=== PATIENT | female | born 1935 | race Caucasian/White ===

== ENCOUNTER 2017-10-21 20:29 | Inpatient (IN) | payer MEDICARE, OTHER ==
[~2017-10-21] VITALS: Ht 170.2 cm; Wt 117.2 kg
[~2017-10-21 20:29] MED LIST: ALBU6.7H INH; ASPI-1071 PO; ATOR10TA PO; Amlodipine Besylate PO; DIO160T PO; DIPH-186 PO; DULO60CA45 PO; ESTR0.9T2 PO; FLUT16SP13 NS; HYDR-569 PO; LEVO5TAB13 PO; LEVO75TA7 PO; METH4TAB81 PO; NEBI20TA2 PO; NITR0.4T51 SL; PAT0.1OS EACHEYE; POTA8TAB3 PO; TICA90TA PO; ZOLP5TAB8 PO
[2017-10-21] MEDS ORDERED: levoFLOXACIN-Levaquin 750MG/D5 150 ML IV ONE (21:05)
[2017-10-21] MEDS ORDERED: normal saline 1000ML IV soln IV ONE (21:05)
[2017-10-21] MEDS ORDERED: vancomycin/NS 1 GM ADD-VANTAGE 250 ML IV ONE (21:05)
[2017-10-21] MEDS ORDERED: magnesium 2GM in 50ml NS 50 ML IV ONE (21:10)
[2017-10-21] MEDS ORDERED: methylPREDNISolone sod succ 125mg/2ml vial IV ONE (21:10)
[2017-10-21] MEDS ORDERED: ipratropium/albuterol 3ml nebule NEB ONE (21:30)
[2017-10-21 21:46] LABS: INR 1.1 INR; PARTIAL THROMBOPLASTIN TIME 30 SECONDS (22-32); PROTHROMBIN TIME 11.1 SECONDS (9.0-12.0)
[2017-10-21 21:52] LABS: ALANINE AMINOTRANSFERASE 24 U/L (12-78); ALBUMIN/GLOBULIN RATIO 0.6 (1.1-1.5); ALKALINE PHOSPHATASE 47 IU/L (46-116); ANION GAP 12 (8-16); ASPARTATE AMINO TRANSFERASE 23 U/L (10-37); BILIRUBIN,TOTAL 0.5 MG/DL (0.1-1.0); BLOOD UREA NITROGEN 51 MG/DL (7-18); BUN/CREATININE RATIO 17.5 (6.6-38.0); CALCIUM 9.6 MG/DL (8.5-10.1); CHLORIDE 100 MMOL/L (99-107); CREATININE 2.91 MG/DL (0.40-0.90); GLUCOSE 295 MG/DL (70-104); SODIUM 138 MMOL/L (135-145); eGFR 15 ML/MIN
[2017-10-21 21:55] LABS: ABG HCO3 23.6 mmol/L (22.0-26.0); ABG OXYGEN SATURATION 96.1 % (95-98); ABG PCO2 (T) 42.1 mmHg (32.0-45.0); ABG PH (T) 7.374 (7.350-7.450); ABG PO2 (T) 95.6 mmHg (83-108); FCOHb 0.4 % (0.5-1.5); FLOW 8 L/min; FMetHb 0.2 % (0.3-1.12); FO2Hb 95.5 % (94-100); PATIENT TEMPERATURE 38.5
[2017-10-21 21:59] LABS: MAGNESIUM 1.5 MG/DL (1.5-2.4)
[2017-10-21 22:02] LABS: BASOPHILS % (AUTO) 0.2 % (0-1); EOSINOPHILS % (AUTO) 0 % (0-6); HEMATOCRIT 35.4 % (35.0-45.0); HEMOGLOBIN 11.7 g/dl (12.0-16.0); LYMPHOCYTES # (AUTO) 1.7 X10'3 (1.1-4.8); LYMPHOCYTES % (AUTO) 8.7 % (21-51); MEAN CORPUSCULAR HEMOGLOBIN 30.2 PG (27.0-31.0); MEAN CORPUSCULAR VOLUME 91.6 FL (78-98); MEAN PLATELET VOLUME 8.6 FL (7.4-10.4); MONOCYTES # (AUTO) 0.5 X10'3 (0-0.9); MONOCYTES % (AUTO) 2.5 % (2-12); NEUTROPHILS # (AUTO) 17.1 X10'3 (1.8-7.7); NEUTROPHILS % (AUTO) 88.6 % (42-75); PLATELET COUNT 292 X10'3 (140-440); RED BLOOD COUNT 3.87 X10'6 (4.20-5.60); RED CELL DISTRIBUTION WIDTH 14.9 % (11.5-14.5); WHITE BLOOD COUNT 19.3 X10'3 (4.5-11.0)
[2017-10-21 23:01] LABS: NUCLEATED RED BLOOD CELLS 1 /100WBC (0-0); TOTAL CELLS COUNTED 100
[2017-10-21 23:03] LABS: PLATELET ESTIMATE NORMAL; TOXIC VACUOLATION FEW
[2017-10-22 00:14] LABS: CLARITY,URINE Cloudy (Clear); COLOR,URINE Yellow (Yellow); GLUCOSE, URINE Negative (Neg); KETONES,URINE Trace mg/dl (Neg); LEUKOCYTE ESTERASE ,URINE Trace (Neg); NITRITES, URINE Negative (Neg); OCCULT BLOOD,URINE Small (Neg); PROTEIN,URINE 300 mg/dl (Neg)
[2017-10-22 00:22] LABS: UA COLLECTION TYPE CLN CATCH MIDSTREAM
[2017-10-22 00:50] LABS: RBC,URINE NONE SEEN /HPF (0-2); WBC,URINE 0-4 /HPF (0-4)
[2017-10-22] MEDS ORDERED: normal saline 1000ML IV soln IVB ONE ×2 (00:50→00:55)
[2017-10-22 01:15] LABS: MUCUS STRANDS FEW /LPF (Neg); SQUAMOUS EPITHELIAL CELL,UR MODERATE /LPF (FEW)
[2017-10-22 01:16] LABS: AMORPHOUS URATES 2+; FINE GRANULAR CAST 0-3 /LPF (NEGATIVE)
[2017-10-22 01:17] LABS: BACTERIA,URINE FEW /HPF (Neg)
[2017-10-22] MEDS ORDERED: ondansetron/PF 4mg/2ml inj IV PRN (02:30)
[2017-10-22] MEDS ORDERED: acetaminophen 325mg tablet PO PRN ×2 (02:30)
[2017-10-22] MEDS ORDERED: ipratropium/albuterol 3ml nebule NEB PRN (03:10)
[2017-10-22] MEDS ORDERED: piperacillin/tazobactam inj. 2.25 GM in normal saline 50ml IV IV SCH (03:29)
[2017-10-22] MEDS: normal saline 1000ml 1,000 ML IV SCH ×2 (03:42→14:14)
[2017-10-22] MEDS: methylPREDNISolone sod succ 125mg/2ml vial IV SCH ×4 (03:43→19:20)
[2017-10-22] MEDS ORDERED: enoxaparin 30mg/0.3ml syringe SUBCUT SCH (08:00)
[2017-10-22 08:54] LABS: BASOPHILS % (AUTO) 0 % (0-1); EOSINOPHILS % (AUTO) 0 % (0-6); HEMATOCRIT 31.5 % (35.0-45.0); HEMOGLOBIN 10.5 g/dl (12.0-16.0); LYMPHOCYTES % (AUTO) 6.7 % (21-51); MEAN CORPUSCULAR HEMOGLOBIN 30.8 PG (27.0-31.0); MEAN CORPUSCULAR HGB CONC 33.3 % (33.0-36.5); MEAN CORPUSCULAR VOLUME 92.7 FL (78-98); MEAN PLATELET VOLUME 8.2 FL (7.4-10.4); MONOCYTES # (AUTO) 0.3 X10'3 (0-0.9); MONOCYTES % (AUTO) 2.2 % (2-12); NEUTROPHILS # (AUTO) 14.1 X10'3 (1.8-7.7); NEUTROPHILS % (AUTO) 91.1 % (42-75); PLATELET COUNT 247 X10'3 (140-440); RED BLOOD COUNT 3.39 X10'6 (4.20-5.60); RED CELL DISTRIBUTION WIDTH 14.9 % (11.5-14.5); WHITE BLOOD COUNT 15.5 X10'3 (4.5-11.0)
[2017-10-22 09:09] LABS: ALANINE AMINOTRANSFERASE 20 U/L (12-78); ALBUMIN 2.3 G/DL (3.4-5.0); ALBUMIN/GLOBULIN RATIO 0.5 (1.1-1.5); ALKALINE PHOSPHATASE 43 IU/L (46-116); ANION GAP 8 (8-16); ASPARTATE AMINO TRANSFERASE 36 U/L (10-37); BILIRUBIN,TOTAL 0.3 MG/DL (0.1-1.0); BLOOD UREA NITROGEN 48 MG/DL (7-18); BUN/CREATININE RATIO 22.2 (6.6-38.0); CALCIUM 8.4 MG/DL (8.5-10.1); CHLORIDE 105 MMOL/L (99-107); CREATININE 2.16 MG/DL (0.40-0.90); GLUCOSE 372 MG/DL (70-104); POTASSIUM 4.5 MMOL/L (3.5-5.1); SODIUM 137 MMOL/L (135-145); TOTAL CARBON DIOXIDE 24.4 MMOL/L (24-32); eGFR 22 ML/MIN
[2017-10-22 09:10] LABS: PLATELET ESTIMATE NORMAL; TOTAL CELLS COUNTED 100; TOXIC GRANULATION 1+
[2017-10-22] MEDS: piperacillin/tazo 3.375gm/50ml 50 ML IV SCH ×3 (09:53→19:21)
[2017-10-22] MEDS: enoxaparin 40mg/0.4ml syringe SUBCUT SCH (09:53)
[2017-10-22] MEDS ORDERED: MESSAGE TO PHARMACY PO ONE (10:55)
[2017-10-22] MEDS ORDERED: dextrose 50%-water 50ml dispensing syringe IV PRN ×2 (10:55)
[2017-10-22] MEDS ORDERED: albuterol 2.5 MG/3 ML nebule NEB PRN (10:55)
[2017-10-22] MEDS ORDERED: dextrose ORAL solution 15 GM/59 ML bottle PO PRN ×2 (10:55)
[2017-10-22] MEDS ORDERED: glucagon, human recombinant 1mg kit SUBCUT PRN (10:55)
[2017-10-22] MEDS: ipratropium/albuterol 3ml nebule NEB SCH ×4 (12:35→23:27)
[2017-10-22 13:40] VITALS: BP 151/78
[2017-10-22] MEDS: insulin Lispro (HumaLOG) vial - multi-dose SQ SCH ×3 (14:50→21:14)
[2017-10-22 15:00] VITALS: BP 135/68
[2017-10-22 19:00] VITALS: BP 131/72
[2017-10-22] MEDS: insulin glargine (Lantus) pen - multi-dose SQ SCH (21:15)
[2017-10-22 23:00] VITALS: BP 129/59
[2017-10-23] VITALS (15 sets, daily range): BP systolic 100–155; BP diastolic 60–88
[2017-10-23] MEDS: temazepam 15mg capsule PO PRN (00:56)
[2017-10-23] MEDS ORDERED: diltiazem 5mg/ml 5ml inj. IV ONE ×2 (01:10→02:30)
[2017-10-23] MEDS: piperacillin/tazo 3.375gm/50ml 50 ML IV SCH ×4 (01:22→19:10)
[2017-10-23] MEDS: methylPREDNISolone sod succ 125mg/2ml vial IV SCH ×4 (01:22→19:11)
[2017-10-23] MEDS ORDERED: VANCOMYCIN LEVEL IV SCH (03:00)
[2017-10-23] MEDS: ipratropium/albuterol 3ml nebule NEB SCH ×6 (03:28→22:06)
[2017-10-23] MEDS: diltiazem-D5W 125mg/125ml 125 ML IV SCH (04:08)
[2017-10-23] MEDS: normal saline 1000ml 1,000 ML IV SCH (05:06)
[2017-10-23 06:00] LABS: BASOPHILS % (AUTO) 0 % (0-1); EOSINOPHILS % (AUTO) 0 % (0-6); HEMATOCRIT 30.9 % (35.0-45.0); HEMOGLOBIN 10.3 g/dl (12.0-16.0); LYMPHOCYTES # (AUTO) 0.6 X10'3 (1.1-4.8); LYMPHOCYTES % (AUTO) 4.2 % (21-51); MEAN CORPUSCULAR HGB CONC 33.2 % (33.0-36.5); MEAN CORPUSCULAR VOLUME 93.4 FL (78-98); MEAN PLATELET VOLUME 8.6 FL (7.4-10.4); MONOCYTES # (AUTO) 0.8 X10'3 (0-0.9); MONOCYTES % (AUTO) 5.1 % (2-12); NEUTROPHILS # (AUTO) 13.9 X10'3 (1.8-7.7); NEUTROPHILS % (AUTO) 90.7 % (42-75); PLATELET COUNT 258 X10'3 (140-440); RED BLOOD COUNT 3.31 X10'6 (4.20-5.60); RED CELL DISTRIBUTION WIDTH 15.1 % (11.5-14.5); WHITE BLOOD COUNT 15.4 X10'3 (4.5-11.0)
[2017-10-23 06:17] LABS: ALBUMIN 2.4 G/DL (3.4-5.0); ANION GAP 12 (8-16); BLOOD UREA NITROGEN 50 MG/DL (7-18); BUN/CREATININE RATIO 26.6 (6.6-38.0); CALCIUM 8.5 MG/DL (8.5-10.1); CHLORIDE 107 MMOL/L (99-107); CREATININE 1.88 MG/DL (0.40-0.90); GLUCOSE 293 MG/DL (70-104); POTASSIUM 3.8 MMOL/L (3.5-5.1); SODIUM 142 MMOL/L (135-145); TOTAL CARBON DIOXIDE 23.4 MMOL/L (24-32); eGFR 26 ML/MIN
[2017-10-23] MEDS: enoxaparin 40mg/0.4ml syringe SUBCUT SCH (07:29)
[2017-10-23 09:18] LABS: TOTAL CELLS COUNTED 100
[2017-10-23 09:19] LABS: PLATELET ESTIMATE NORMAL; POLYCHROMASIA 1+; TOXIC GRANULATION 1+
[2017-10-23] MEDS: insulin Lispro (HumaLOG) vial - multi-dose SQ SCH ×4 (09:26→20:49)
[2017-10-23] MEDS ORDERED: nitroGLYCERIN 0.4mg SUBLingual tab SL PRN (10:35)
[2017-10-23] MEDS: furosemide 40mg/4ml inj IV SCH (11:25)
[2017-10-23] MEDS ORDERED: TIOT18CA3 (17:54)
[2017-10-23] MEDS ORDERED: VALS80TA26 PO (17:58)
[2017-10-23] MEDS ORDERED: DIPH1TAB PO (17:58)
[2017-10-23] MEDS ORDERED: PAT0.1OS OP (17:59)
[2017-10-23] MEDS ORDERED: METF500T PO (18:02)
[2017-10-23] MEDS ORDERED: ALBU18HF2 INH (18:03)
[2017-10-23] MEDS ORDERED: BUDE90AE IH (18:04)
[2017-10-23] MEDS ORDERED: pneumococcal 23-VAL P-sac vacc 25 mcg/0.5ml vial IMVAC ONE (18:05)
[2017-10-23] MEDS ORDERED: FURO40TA4 PO (18:05)
[2017-10-23] MEDS ORDERED: PREG50CA PO (18:08)
[2017-10-23] MEDS ORDERED: QUET25TA PO (18:09)
[2017-10-23] MEDS: guaiFENesin ER 600mg tablet PO SCH (19:11)
[2017-10-23] MEDS: ticagrelor 90mg tablet PO SCH (19:11)
[2017-10-23] MEDS: insulin glargine (Lantus) pen - multi-dose SQ SCH (20:51)
[2017-10-23] MEDS ORDERED: zolpidem 5mg tablet PO SCH (21:00)
[2017-10-23] MEDS ORDERED: albuterol 2.5 MG/3 ML nebule NEB PRN (22:50)
[2017-10-24] VITALS (9 sets, daily range): BP systolic 107–156; BP diastolic 36–87
[2017-10-24] MEDS: methylPREDNISolone sod succ 125mg/2ml vial IV SCH ×4 (02:22→19:08)
[2017-10-24] MEDS: piperacillin/tazo 3.375gm/50ml 50 ML IV SCH ×4 (02:22→20:39)
[2017-10-24] MEDS: diltiazem-D5W 125mg/125ml 125 ML IV SCH (02:34)
[2017-10-24] MEDS: ipratropium/albuterol 3ml nebule NEB SCH ×5 (02:36→19:05)
[2017-10-24 05:58] LABS: BASOPHILS % (AUTO) 0.1 % (0-1); EOSINOPHILS % (AUTO) 0 % (0-6); HEMATOCRIT 31.2 % (35.0-45.0); HEMOGLOBIN 10.3 g/dl (12.0-16.0); LYMPHOCYTES # (AUTO) 0.8 X10'3 (1.1-4.8); LYMPHOCYTES % (AUTO) 4.8 % (21-51); MEAN CORPUSCULAR HEMOGLOBIN 30.5 PG (27.0-31.0); MEAN CORPUSCULAR VOLUME 92.5 FL (78-98); MEAN PLATELET VOLUME 8.6 FL (7.4-10.4); MONOCYTES # (AUTO) 0.6 X10'3 (0-0.9); MONOCYTES % (AUTO) 3.6 % (2-12); NEUTROPHILS # (AUTO) 14.5 X10'3 (1.8-7.7); NEUTROPHILS % (AUTO) 91.5 % (42-75); PLATELET COUNT 302 X10'3 (140-440); RED BLOOD COUNT 3.37 X10'6 (4.20-5.60); RED CELL DISTRIBUTION WIDTH 15.1 % (11.5-14.5); WHITE BLOOD COUNT 15.8 X10'3 (4.5-11.0)
[2017-10-24 06:21] LABS: ALBUMIN 2.5 G/DL (3.4-5.0); ANION GAP 11 (8-16); BLOOD UREA NITROGEN 59 MG/DL (7-18); BUN/CREATININE RATIO 29.2 (6.6-38.0); CALCIUM 8.3 MG/DL (8.5-10.1); CHLORIDE 106 MMOL/L (99-107); CREATININE 2.02 MG/DL (0.40-0.90); GLUCOSE 271 MG/DL (70-104); POTASSIUM 3.6 MMOL/L (3.5-5.1); SODIUM 139 MMOL/L (135-145); TOTAL CARBON DIOXIDE 22.5 MMOL/L (24-32); VANCOMYCIN,RANDOM 3.3 UG/ML; eGFR 24 ML/MIN
[2017-10-24 07:36] LABS: BANDS% (MANUAL) 4 % (0-10); LYMPHOCYTES % (MANUAL) 2 % (21-51); METAMYLEOCYTES% (MANUAL) 4 % (0-0); MONOCYTES % (MANUAL) 1 % (2-12); MYELOCYTES % (MANUAL) 3 % (0-0); NEUTROPHILS % (MANUAL) 85 % (42-75); PLATELET ESTIMATE NORMAL; PROMYELOCYTES % (MANUAL) 1 % (0-0); TOTAL CELLS COUNTED 100
[2017-10-24] MEDS: duloxetine 30mg CAPSULE.DR PO SCH (08:08)
[2017-10-24] MEDS: ticagrelor 90mg tablet PO SCH ×2 (08:09→19:08)
[2017-10-24] MEDS: estrogens, conjugated 0.3mg tablet PO SCH (08:09)
[2017-10-24] MEDS: guaiFENesin ER 600mg tablet PO SCH ×2 (08:09→19:08)
[2017-10-24] MEDS: LACTOBACILLUS RHAMNOSUS GG 15 billion unit sprinkle caps PO SCH (08:11)
[2017-10-24] MEDS: levoTHYROXINE 75mcg tablet PO SCH (08:11)
[2017-10-24] MEDS: aspirin 81mg tablet.DR PO SCH (08:11)
[2017-10-24] MEDS: enoxaparin 40mg/0.4ml syringe SUBCUT SCH (08:13)
[2017-10-24] MEDS: furosemide 40mg/4ml inj IV SCH (08:16)
[2017-10-24] MEDS: cetirizine 10mg tablet PO SCH (08:16)
[2017-10-24] MEDS: insulin Lispro (HumaLOG) vial - multi-dose SQ SCH ×4 (08:31→21:20)
[2017-10-24] MEDS ORDERED: levoFLOXACIN-Levaquin 500mg/D5 100 ML IV SCH (08:35)
[2017-10-24] MEDS: insulin glargine (Lantus) pen - multi-dose SQ SCH (21:21)
[2017-10-24] MEDS: temazepam 15mg capsule PO PRN (21:38)
[2017-10-25] VITALS (11 sets, daily range): BP systolic 106–146; BP diastolic 59–81
[2017-10-25] MEDS: ipratropium/albuterol 3ml nebule NEB SCH ×6 (00:02→20:14)
[2017-10-25] MEDS: methylPREDNISolone sod succ 125mg/2ml vial IV SCH ×4 (02:27→20:23)
[2017-10-25] MEDS: piperacillin/tazo 3.375gm/50ml 50 ML IV SCH ×4 (03:00→20:23)
[2017-10-25] MEDS ORDERED: mag hydrox/Alum hydrox/simeth 30ml oral suspension PO ONE (03:05)
[2017-10-25] MEDS: diltiazem-D5W 125mg/125ml 125 ML IV SCH (05:07)
[2017-10-25 06:12] LABS: BASOPHILS % (AUTO) 0 % (0-1); EOSINOPHILS % (AUTO) 0 % (0-6); HEMATOCRIT 30.3 % (35.0-45.0); HEMOGLOBIN 9.9 g/dl (12.0-16.0); LYMPHOCYTES # (AUTO) 0.7 X10'3 (1.1-4.8); LYMPHOCYTES % (AUTO) 5.7 % (21-51); MEAN CORPUSCULAR HEMOGLOBIN 29.9 PG (27.0-31.0); MEAN CORPUSCULAR HGB CONC 32.5 % (33.0-36.5); MEAN CORPUSCULAR VOLUME 91.9 FL (78-98); MEAN PLATELET VOLUME 8.4 FL (7.4-10.4); MONOCYTES # (AUTO) 0.5 X10'3 (0-0.9); MONOCYTES % (AUTO) 4.4 % (2-12); NEUTROPHILS # (AUTO) 10.4 X10'3 (1.8-7.7); NEUTROPHILS % (AUTO) 89.9 % (42-75); PLATELET COUNT 266 X10'3 (140-440); RED CELL DISTRIBUTION WIDTH 15.1 % (11.5-14.5); WHITE BLOOD COUNT 11.6 X10'3 (4.5-11.0)
[2017-10-25 06:32] LABS: ALBUMIN 2.4 G/DL (3.4-5.0); ANION GAP 12 (8-16); BLOOD UREA NITROGEN 63 MG/DL (7-18); BUN/CREATININE RATIO 33.2 (6.6-38.0); CHLORIDE 104 MMOL/L (99-107); GLUCOSE 330 MG/DL (70-104); POTASSIUM 3.6 MMOL/L (3.5-5.1); SODIUM 139 MMOL/L (135-145); TOTAL CARBON DIOXIDE 23.1 MMOL/L (24-32); VANCOMYCIN,RANDOM 2.3 UG/ML; eGFR 25 ML/MIN
[2017-10-25 07:14] LABS: LYMPHOCYTES % (MANUAL) 2 % (21-51); METAMYLEOCYTES% (MANUAL) 4 % (0-0); MONOCYTES % (MANUAL) 4 % (2-12); MYELOCYTES % (MANUAL) 2 % (0-0); NEUTROPHILS % (MANUAL) 88 % (42-75); PLATELET ESTIMATE NORMAL; TOTAL CELLS COUNTED 100
[2017-10-25 07:16] LABS: TOXIC GRANULATION 1+
[2017-10-25] MEDS: enoxaparin 30mg/0.3ml syringe SUBCUT SCH (08:00)
[2017-10-25] MEDS: furosemide 40mg/4ml inj IV SCH (08:21)
[2017-10-25] MEDS: LACTOBACILLUS RHAMNOSUS GG 15 billion unit sprinkle caps PO SCH (08:21)
[2017-10-25] MEDS: levoFLOXACIN-Levaquin 750MG/D5 150 ML IV SCH (08:22)
[2017-10-25] MEDS: ticagrelor 90mg tablet PO SCH ×2 (08:24→20:23)
[2017-10-25] MEDS: duloxetine 30mg CAPSULE.DR PO SCH (08:31)
[2017-10-25] MEDS: estrogens, conjugated 0.3mg tablet PO SCH (08:32)
[2017-10-25] MEDS: guaiFENesin ER 600mg tablet PO SCH ×2 (08:32→20:23)
[2017-10-25] MEDS: aspirin 81mg tablet.DR PO SCH (08:32)
[2017-10-25] MEDS: levoTHYROXINE 75mcg tablet PO SCH (08:32)
[2017-10-25] MEDS: cetirizine 10mg tablet PO SCH (08:37)
[2017-10-25] MEDS: insulin Lispro (HumaLOG) vial - multi-dose SQ SCH ×4 (08:42→20:38)
[2017-10-25] MEDS: mag hydrox/Alum hydrox/simeth 30ml oral suspension PO PRN ×2 (10:01→21:32)
[2017-10-25] MEDS ORDERED: diltiazem 30mg tablet PO ONE (14:40)
[2017-10-25] MEDS ORDERED: furosemide 40mg/4ml inj IV SCH (15:00)
[2017-10-25] MEDS: diltiazem 30mg tablet PO SCH (20:24)
[2017-10-25] MEDS: insulin glargine (Lantus) pen - multi-dose SQ SCH (20:37)
[2017-10-25] MEDS: temazepam 15mg capsule PO PRN (22:04)
[2017-10-26] MEDS: ipratropium/albuterol 3ml nebule NEB SCH ×7 (00:07→23:36)
[2017-10-26] MEDS: methylPREDNISolone sod succ 125mg/2ml vial IV SCH ×2 (01:57→08:09)
[2017-10-26] MEDS: diltiazem 30mg tablet PO SCH ×4 (01:57→20:59)
[2017-10-26] MEDS: piperacillin/tazo 3.375gm/50ml 50 ML IV SCH ×4 (01:57→20:58)
[2017-10-26 03:00] VITALS: BP 90/46
[2017-10-26] MEDS: mag hydrox/Alum hydrox/simeth 30ml oral suspension PO PRN ×2 (05:05→22:24)
[2017-10-26 05:32] LABS: BASOPHILS % (AUTO) 0.1 % (0-1); EOSINOPHILS % (AUTO) 0 % (0-6); HEMATOCRIT 29.2 % (35.0-45.0); HEMOGLOBIN 9.6 g/dl (12.0-16.0); LYMPHOCYTES # (AUTO) 0.7 X10'3 (1.1-4.8); MEAN CORPUSCULAR HGB CONC 32.9 % (33.0-36.5); MEAN CORPUSCULAR VOLUME 91.3 FL (78-98); MEAN PLATELET VOLUME 8.3 FL (7.4-10.4); MONOCYTES # (AUTO) 0.4 X10'3 (0-0.9); MONOCYTES % (AUTO) 3.8 % (2-12); NEUTROPHILS # (AUTO) 10.7 X10'3 (1.8-7.7); NEUTROPHILS % (AUTO) 90.1 % (42-75); PLATELET COUNT 257 X10'3 (140-440); RED CELL DISTRIBUTION WIDTH 15.6 % (11.5-14.5); WHITE BLOOD COUNT 11.9 X10'3 (4.5-11.0)
[2017-10-26 05:36] LABS: ALBUMIN 2.3 G/DL (3.4-5.0); ANION GAP 12 (8-16); BLOOD UREA NITROGEN 66 MG/DL (7-18); BUN/CREATININE RATIO 31.4 (6.6-38.0); CALCIUM 7.6 MG/DL (8.5-10.1); CHLORIDE 101 MMOL/L (99-107); GLUCOSE 320 MG/DL (70-104); POTASSIUM 3.9 MMOL/L (3.5-5.1); SODIUM 139 MMOL/L (135-145); TOTAL CARBON DIOXIDE 25.6 MMOL/L (24-32); VANCOMYCIN,RANDOM 1.9 UG/ML; eGFR 23 ML/MIN
[2017-10-26 06:00] VITALS: BP 136/63
[2017-10-26] MEDS ORDERED: calcium carbonate 500mg chew tablet PO PRN (06:35)
[2017-10-26] MEDS: LACTOBACILLUS RHAMNOSUS GG 15 billion unit sprinkle caps PO SCH (08:08)
[2017-10-26] MEDS: ticagrelor 90mg tablet PO SCH ×2 (08:09→20:58)
[2017-10-26] MEDS: cetirizine 10mg tablet PO SCH (08:12)
[2017-10-26] MEDS: enoxaparin 30mg/0.3ml syringe SUBCUT SCH (08:16)
[2017-10-26] MEDS: estrogens, conjugated 0.3mg tablet PO SCH (08:17)
[2017-10-26] MEDS: levoTHYROXINE 75mcg tablet PO SCH (08:17)
[2017-10-26] MEDS: aspirin 81mg tablet.DR PO SCH (08:17)
[2017-10-26] MEDS: duloxetine 30mg CAPSULE.DR PO SCH (08:17)
[2017-10-26] MEDS: guaiFENesin ER 600mg tablet PO SCH ×2 (08:17→20:59)
[2017-10-26] MEDS: furosemide 40mg/4ml inj IV SCH ×2 (08:20→15:14)
[2017-10-26] MEDS: insulin Lispro (HumaLOG) vial - multi-dose SQ SCH ×4 (08:23→21:39)
[2017-10-26 09:09] LABS: NUCLEATED RED BLOOD CELLS 2 /100WBC (0-0); TOTAL CELLS COUNTED 100
[2017-10-26 09:10] LABS: PLATELET ESTIMATE NORMAL; TOXIC GRANULATION 2+
[2017-10-26 09:11] LABS: HYPOCHROMASIA 1+; SCHISTOCYTES FEW
[2017-10-26] MEDS: pantoprazole 40mg Tablet.DR PO SCH (10:29)
[2017-10-26 11:00] VITALS: BP 155/76
[2017-10-26] MEDS: predniSONE 20 mg tablet PO SCH (12:54)
[2017-10-26 15:00] VITALS: BP 135/56
[2017-10-26 19:00] VITALS: BP_SYST 111; BP_SYST 133; BP_DIAS 61; BP_DIAS 64
[2017-10-26] MEDS: insulin glargine (Lantus) pen - multi-dose SQ SCH (21:11)
[2017-10-26] MEDS ORDERED: HYDROcodone/acetaminophen 5mg/325mg tablet PO PRN (22:15)
[2017-10-26] MEDS: temazepam 15mg capsule PO PRN (22:24)
[2017-10-26 23:00] VITALS: BP_SYST 102; BP_SYST 119; BP_DIAS 53; BP_DIAS 80
[2017-10-27] VITALS (7 sets, daily range): BP systolic 94–137; BP diastolic 48–69
[2017-10-27] MEDS: diltiazem 30mg tablet PO SCH ×4 (02:13→20:00)
[2017-10-27] MEDS: piperacillin/tazo 3.375gm/50ml 50 ML IV SCH ×4 (02:14→19:59)
[2017-10-27] MEDS: ipratropium/albuterol 3ml nebule NEB SCH ×6 (03:52→23:49)
[2017-10-27 06:45] LABS: ALBUMIN 2.4 G/DL (3.4-5.0); ANION GAP 11 (8-16); BLOOD UREA NITROGEN 75 MG/DL (7-18); BUN/CREATININE RATIO 32.6 (6.6-38.0); CALCIUM 7.3 MG/DL (8.5-10.1); CHLORIDE 100 MMOL/L (99-107); GLUCOSE 298 MG/DL (70-104); POTASSIUM 3.9 MMOL/L (3.5-5.1); SODIUM 139 MMOL/L (135-145); TOTAL CARBON DIOXIDE 27.6 MMOL/L (24-32); VANCOMYCIN,RANDOM 1.2 UG/ML; eGFR 20 ML/MIN
[2017-10-27 06:58] LABS: BASOPHILS # (AUTO) 0.1 X10'3 (0-0.2); BASOPHILS % (AUTO) 0.5 % (0-1); EOSINOPHILS % (AUTO) 0 % (0-6); HEMATOCRIT 28.5 % (35.0-45.0); HEMOGLOBIN 9.9 g/dl (12.0-16.0); LYMPHOCYTES # (AUTO) 0.9 X10'3 (1.1-4.8); LYMPHOCYTES % (AUTO) 5.9 % (21-51); MEAN CORPUSCULAR HEMOGLOBIN 31.4 PG (27.0-31.0); MEAN CORPUSCULAR HGB CONC 34.9 % (33.0-36.5); MEAN PLATELET VOLUME 8.5 FL (7.4-10.4); MONOCYTES % (AUTO) 7.2 % (2-12); NEUTROPHILS # (AUTO) 12.4 X10'3 (1.8-7.7); NEUTROPHILS % (AUTO) 86.4 % (42-75); PLATELET COUNT 268 X10'3 (140-440); RED BLOOD COUNT 3.16 X10'6 (4.20-5.60); RED CELL DISTRIBUTION WIDTH 14.2 % (11.5-14.5); WHITE BLOOD COUNT 14.4 X10'3 (4.5-11.0)
[2017-10-27 07:40] LABS: TOTAL CELLS COUNTED 100
[2017-10-27 07:41] LABS: PLATELET ESTIMATE NORMAL; POLYCHROMASIA FEW; TARGET CELLS FEW; TOXIC GRANULATION 2+
[2017-10-27] MEDS: predniSONE 20 mg tablet PO SCH (08:06)
[2017-10-27] MEDS: guaiFENesin ER 600mg tablet PO SCH ×2 (08:06→19:59)
[2017-10-27] MEDS: estrogens, conjugated 0.3mg tablet PO SCH (08:06)
[2017-10-27] MEDS: pantoprazole 40mg Tablet.DR PO SCH (08:07)
[2017-10-27] MEDS: levoTHYROXINE 75mcg tablet PO SCH (08:07)
[2017-10-27] MEDS: LACTOBACILLUS RHAMNOSUS GG 15 billion unit sprinkle caps PO SCH (08:07)
[2017-10-27] MEDS: ticagrelor 90mg tablet PO SCH ×2 (08:07→19:59)
[2017-10-27] MEDS: cetirizine 10mg tablet PO SCH (08:07)
[2017-10-27] MEDS: duloxetine 30mg CAPSULE.DR PO SCH (08:07)
[2017-10-27] MEDS: aspirin 81mg tablet.DR PO SCH (08:08)
[2017-10-27] MEDS: enoxaparin 30mg/0.3ml syringe SUBCUT SCH (08:09)
[2017-10-27] MEDS: levoFLOXACIN-Levaquin 750MG/D5 150 ML IV SCH (08:13)
[2017-10-27] MEDS: insulin Lispro (HumaLOG) vial - multi-dose SQ SCH ×3 (08:27→19:06)
[2017-10-27] MEDS: furosemide 40mg/4ml inj IV SCH (10:05)
[2017-10-27] MEDS ORDERED: furosemide 40mg/4ml inj IV SCH (15:00)
[2017-10-27] MEDS: insulin glargine (Lantus) pen - multi-dose SQ SCH (21:02)
[2017-10-27] MEDS: temazepam 15mg capsule PO PRN (21:17)
[2017-10-28] VITALS (7 sets, daily range): BP systolic 101–127; BP diastolic 40–71
[2017-10-28] MEDS: piperacillin/tazo 3.375gm/50ml 50 ML IV SCH ×4 (01:45→19:58)
[2017-10-28] MEDS: diltiazem 30mg tablet PO SCH ×4 (01:55→19:58)
[2017-10-28] MEDS: ipratropium/albuterol 3ml nebule NEB SCH ×5 (03:38→23:39)
[2017-10-28] MEDS: mag hydrox/Alum hydrox/simeth 30ml oral suspension PO PRN (03:44)
[2017-10-28] MEDS: predniSONE 20 mg tablet PO SCH (08:03)
[2017-10-28] MEDS: estrogens, conjugated 0.3mg tablet PO SCH (08:03)
[2017-10-28] MEDS: duloxetine 30mg CAPSULE.DR PO SCH (08:03)
[2017-10-28] MEDS: LACTOBACILLUS RHAMNOSUS GG 15 billion unit sprinkle caps PO SCH (08:03)
[2017-10-28] MEDS: guaiFENesin ER 600mg tablet PO SCH ×2 (08:03→19:58)
[2017-10-28] MEDS: pantoprazole 40mg Tablet.DR PO SCH (08:03)
[2017-10-28] MEDS: aspirin 81mg tablet.DR PO SCH (08:04)
[2017-10-28] MEDS: ticagrelor 90mg tablet PO SCH ×2 (08:04→19:57)
[2017-10-28] MEDS: levoTHYROXINE 75mcg tablet PO SCH (08:04)
[2017-10-28] MEDS: furosemide 40mg/4ml inj IV SCH (08:08)
[2017-10-28] MEDS: enoxaparin 30mg/0.3ml syringe SUBCUT SCH (08:08)
[2017-10-28] MEDS: insulin Lispro (HumaLOG) vial - multi-dose SQ SCH ×4 (08:22→21:31)
[2017-10-28] MEDS: cetirizine 10mg tablet PO SCH (08:24)
[2017-10-28 10:41] LABS: HEMOGLOBIN 10.9 g/dl (12.0-16.0); MEAN CORPUSCULAR HEMOGLOBIN 30.3 PG (27.0-31.0); MEAN CORPUSCULAR VOLUME 91.9 FL (78-98); MEAN PLATELET VOLUME 7.7 FL (7.4-10.4); PLATELET COUNT 309 X10'3 (140-440); RED BLOOD COUNT 3.59 X10'6 (4.20-5.60); RED CELL DISTRIBUTION WIDTH 15.1 % (11.5-14.5); WHITE BLOOD COUNT 18.2 X10'3 (4.5-11.0)
[2017-10-28 10:54] LABS: NUCLEATED RED BLOOD CELLS 1 /100WBC (0-0); TOTAL CELLS COUNTED 100
[2017-10-28 10:56] LABS: ANISOCYTOSIS 1+; HYPOCHROMASIA 1+; PLATELET ESTIMATE NORMAL; POLYCHROMASIA 1+; TOXIC GRANULATION 2+; TOXIC VACUOLATION 1+
[2017-10-28] MEDS ORDERED: levoFLOXACIN 750MG TABLET PO SCH (11:00)
[2017-10-28 11:01] LABS: ALANINE AMINOTRANSFERASE 55 U/L (12-78); ALBUMIN 2.3 G/DL (3.4-5.0); ALBUMIN/GLOBULIN RATIO 0.6 (1.1-1.5); ALKALINE PHOSPHATASE 33 IU/L (46-116); ANION GAP 12 (8-16); ASPARTATE AMINO TRANSFERASE 45 U/L (10-37); BILIRUBIN,TOTAL 0.5 MG/DL (0.1-1.0); BLOOD UREA NITROGEN 74 MG/DL (7-18); BUN/CREATININE RATIO 29.6 (6.6-38.0); CALCIUM 7.1 MG/DL (8.5-10.1); CHLORIDE 100 MMOL/L (99-107); GLUCOSE 198 MG/DL (70-104); POTASSIUM 3.6 MMOL/L (3.5-5.1); SODIUM 139 MMOL/L (135-145); TOTAL CARBON DIOXIDE 27.5 MMOL/L (24-32); TOTAL PROTEIN 6.2 G/DL (6.4-8.2); eGFR 18 ML/MIN
[2017-10-28] MEDS ORDERED: magnesium hydroxide 30ml (MOM) UD suspension PO PRN (14:50)
[2017-10-28] MEDS: docusate sod 100mg capsule PO SCH (15:18)
[2017-10-28] MEDS: NUT.TX.GLUC.INTOLER,LAC-FR,REG (BOOST GLUCOSE CONTROL) 237 ML PO SCH (18:36)
[2017-10-28] MEDS: temazepam 15mg capsule PO PRN (21:33)
[2017-10-28] MEDS: insulin glargine (Lantus) pen - multi-dose SQ SCH (21:33)
[2017-10-29] MEDS: piperacillin/tazo 3.375gm/50ml 50 ML IV SCH ×2 (02:23→11:09)
[2017-10-29] MEDS: diltiazem 30mg tablet PO SCH ×2 (02:23→07:43)
[2017-10-29] MEDS ORDERED: VANCOMYCIN LEVEL IV SCH (03:00)
[2017-10-29 03:06] VITALS: BP 133/62
[2017-10-29] MEDS: ipratropium/albuterol 3ml nebule NEB SCH ×4 (03:59→14:55)
[2017-10-29 06:00] VITALS: BP 118/55
[2017-10-29 06:23] LABS: ALBUMIN 2.2 G/DL (3.4-5.0); ANION GAP 6 (8-16); BLOOD UREA NITROGEN 69 MG/DL (7-18); CHLORIDE 103 MMOL/L (99-107); GLUCOSE 94 MG/DL (70-104); POTASSIUM 3.8 MMOL/L (3.5-5.1); SODIUM 140 MMOL/L (135-145); VANCOMYCIN,RANDOM 15.6 UG/ML; eGFR 20 ML/MIN
[2017-10-29] MEDS: estrogens, conjugated 0.3mg tablet PO SCH (07:36)
[2017-10-29] MEDS: ticagrelor 90mg tablet PO SCH (07:37)
[2017-10-29] MEDS: predniSONE 20 mg tablet PO SCH (07:37)
[2017-10-29] MEDS: levoTHYROXINE 75mcg tablet PO SCH (07:38)
[2017-10-29] MEDS: guaiFENesin ER 600mg tablet PO SCH (07:39)
[2017-10-29] MEDS: LACTOBACILLUS RHAMNOSUS GG 15 billion unit sprinkle caps PO SCH (07:40)
[2017-10-29] MEDS: aspirin 81mg tablet.DR PO SCH (07:41)
[2017-10-29] MEDS: docusate sod 100mg capsule PO SCH (07:41)
[2017-10-29] MEDS: pantoprazole 40mg Tablet.DR PO SCH (07:42)
[2017-10-29] MEDS: duloxetine 30mg CAPSULE.DR PO SCH (07:44)
[2017-10-29] MEDS: enoxaparin 30mg/0.3ml syringe SUBCUT SCH (07:44)
[2017-10-29] MEDS: cetirizine 10mg tablet PO SCH (07:45)
[2017-10-29] MEDS: NUT.TX.GLUC.INTOLER,LAC-FR,REG (BOOST GLUCOSE CONTROL) 237 ML PO SCH (08:00)
[2017-10-29] MEDS ORDERED: levoFLOXACIN-Levaquin 250mg/D5 50 ML IV SCH (08:00)
[2017-10-29 10:34] LABS: BASOPHILS # (AUTO) 0.1 X10'3 (0-0.2); BASOPHILS % (AUTO) 0.6 % (0-1); EOSINOPHILS % (AUTO) 0.1 % (0-6); HEMATOCRIT 31.5 % (35.0-45.0); HEMOGLOBIN 10.2 g/dl (12.0-16.0); LYMPHOCYTES # (AUTO) 1.6 X10'3 (1.1-4.8); LYMPHOCYTES % (AUTO) 8.7 % (21-51); MEAN CORPUSCULAR HEMOGLOBIN 30.2 PG (27.0-31.0); MEAN CORPUSCULAR HGB CONC 32.4 % (33.0-36.5); MEAN CORPUSCULAR VOLUME 93.1 FL (78-98); MEAN PLATELET VOLUME 8.1 FL (7.4-10.4); MONOCYTES # (AUTO) 0.6 X10'3 (0-0.9); MONOCYTES % (AUTO) 3.3 % (2-12); NEUTROPHILS # (AUTO) 16.1 X10'3 (1.8-7.7); NEUTROPHILS % (AUTO) 87.3 % (42-75); PLATELET COUNT 290 X10'3 (140-440); RED BLOOD COUNT 3.38 X10'6 (4.20-5.60); RED CELL DISTRIBUTION WIDTH 15.6 % (11.5-14.5); WHITE BLOOD COUNT 18.4 X10'3 (4.5-11.0)
[2017-10-29 10:45] LABS: ANISOCYTOSIS 1+; PLATELET ESTIMATE NORMAL; POLYCHROMASIA 1+; TOTAL CELLS COUNTED 100
[2017-10-29 10:46] LABS: TARGET CELLS FEW
[2017-10-29 11:00] VITALS: BP 138/51
[2017-10-29 11:10] LABS: ALANINE AMINOTRANSFERASE 68 U/L (12-78); ALBUMIN/GLOBULIN RATIO 0.6 (1.1-1.5); ALKALINE PHOSPHATASE 32 IU/L (46-116); ASPARTATE AMINO TRANSFERASE 57 U/L (10-37); BILIRUBIN,DIRECT 0.1 MG/DL (0-0.3); BILIRUBIN,TOTAL 0.4 MG/DL (0.1-1.0); TOTAL PROTEIN 5.7 G/DL (6.4-8.2)
[2017-10-29] MEDS: insulin Lispro (HumaLOG) vial - multi-dose SQ SCH (13:29)
[2017-10-29] MEDS ORDERED: PRED20TA PO (13:46)
[2017-10-29] MEDS ORDERED: LEVO500T2 PO (13:46)
[2017-10-29] MEDS ORDERED: vancomycin/NS 1 GM ADD-VANTAGE 250 ML IV SCH (16:00)
[2017-11-01] MEDS ORDERED: VANCOMYCIN LEVEL IV NR (15:30)
== END 2017-10-29 15:35 | disposition home health service (06) | DRG 871 ==
LOC: ER 20:30 → ED HOLD 10-22 02:26 → PCU 3S 10-22 13:45
PROVIDERS: ADMIT Internal Medicine; ATTEND Family Medicine
PROC: 5A09357 Assistance with Respiratory Ventilation, Less than 24 Consecutive Hours, Continuous Positive Airway Pressure (ICD-10-PCS; 2017-10-22)
PROC: 3E0234Z Introduction of Serum, Toxoid and Vaccine into Muscle, Percutaneous Approach (ICD-10-PCS; principal; 2017-10-23)
PROC: 5A09357 Assistance with Respiratory Ventilation, Less than 24 Consecutive Hours, Continuous Positive Airway Pressure (ICD-10-PCS; 2017-10-23)
PROC: 5A09357 Assistance with Respiratory Ventilation, Less than 24 Consecutive Hours, Continuous Positive Airway Pressure (ICD-10-PCS; 2017-10-25)
DX: A41.9 Sepsis, unspecified organism (principal); E43 Unspecified severe protein-calorie malnutrition; J96.00 Acute respiratory failure, unspecified whether with hypoxia or hypercapnia; I50.43 Acute on chronic combined systolic (congestive) and diastolic (congestive) heart failure; N17.0 Acute kidney failure with tubular necrosis; J18.9 Pneumonia, unspecified organism; E11.22 Type 2 diabetes mellitus with diabetic chronic kidney disease; I13.0 Hypertensive heart and chronic kidney disease with heart failure and stage 1 through stage 4 chronic kidney disease, or unspecified chronic kidney disease; I48.91 Unspecified atrial fibrillation; J44.1 Chronic obstructive pulmonary disease with (acute) exacerbation; Z68.41 Body mass index [BMI] 40.0-44.9, adult; J44.0 Chronic obstructive pulmonary disease with (acute) lower respiratory infection; D64.9 Anemia, unspecified; E03.9 Hypothyroidism, unspecified; I25.10 Atherosclerotic heart disease of native coronary artery without angina pectoris; F32.9 Major depressive disorder, single episode, unspecified; F41.9 Anxiety disorder, unspecified; G89.29 Other chronic pain; G47.9 Sleep disorder, unspecified; M54.9 Dorsalgia, unspecified; N18.9 Chronic kidney disease, unspecified; Z60.2 Problems related to living alone; Z66 Do not resuscitate; Z90.710 Acquired absence of both cervix and uterus; Z95.2 Presence of prosthetic heart valve; Z95.5 Presence of coronary angioplasty implant and graft; Z99.81 Dependence on supplemental oxygen; Z88.6 Allergy status to analgesic agent; Z88.8 Allergy status to other drugs, medicaments and biological substances; Z79.899 Other long term (current) drug therapy; Z79.01 Long term (current) use of anticoagulants; Z79.82 Long term (current) use of aspirin; Z87.01 Personal history of pneumonia (recurrent); Z87.891 Personal history of nicotine dependence; Z23 Encounter for immunization
CPT/HCPCS: 36415; 36600; 71045; 71250; 80048; 80053; 80076; 80202; 81001; 82803; 82948; 83036; 83605; 83735; 83880; 84145; 84443; 84484; 85018; 85025; 85610; 85730; 87040; 87070; 87088; 87502; 87503; 92616; 93005; 93306; 94640; 94660; 94668; 94760; 96365; 96375; 97110; 97116; 97162; 97530; 99291; A6258; J1650; J1815; J1940; J1956; J2405; J2543; J2930; J3370; J3475; J3490; J7030; J7512

== ENCOUNTER 2017-11-01 11:32 | Inpatient (IN) | payer MEDICARE, OTHER ==
[~2017-11-01] VITALS: Ht 167.6 cm; Wt 122.3 kg
[~2017-11-01 11:32] MED LIST changes: +ALBU18HF2 INH; -ALBU6.7H INH; +BUDE90AE IH; -DIO160T PO; -DIPH-186 PO; +DIPH1TAB PO; -DULO60CA45 PO; -ESTR0.9T2 PO; -FLUT16SP13 NS; +FURO40TA4 PO; +LEVO500T2 PO; +METF500T PO; -METH4TAB81 PO; -NEBI20TA2 PO; -PAT0.1OS EACHEYE; +PAT0.1OS OP; +PRED20TA PO; +PREG50CA PO; +QUET25TA PO; -TICA90TA PO; +TIOT18CA3; +VALS80TA26 PO; -ZOLP5TAB8 PO
[2017-11-01 12:35] LABS: BASOPHILS # (AUTO) 0.2 X10'3 (0-0.2); BASOPHILS % (AUTO) 0.9 % (0-1); EOSINOPHILS % (AUTO) 0.2 % (0-6); HEMATOCRIT 31.7 % (35.0-45.0); HEMOGLOBIN 10.6 g/dl (12.0-16.0); MEAN CORPUSCULAR HEMOGLOBIN 30.8 PG (27.0-31.0); MEAN CORPUSCULAR HGB CONC 33.5 % (33.0-36.5); MEAN CORPUSCULAR VOLUME 91.7 FL (78-98); MEAN PLATELET VOLUME 8.4 FL (7.4-10.4); MONOCYTES # (AUTO) 0.8 X10'3 (0-0.9); MONOCYTES % (AUTO) 4.8 % (2-12); NEUTROPHILS # (AUTO) 12.7 X10'3 (1.8-7.7); NEUTROPHILS % (AUTO) 76.1 % (42-75); PLATELET COUNT 312 X10'3 (140-440); RED BLOOD COUNT 3.46 X10'6 (4.20-5.60); RED CELL DISTRIBUTION WIDTH 14.8 % (11.5-14.5); WHITE BLOOD COUNT 16.7 X10'3 (4.5-11.0)
[2017-11-01 12:39] LABS: ALANINE AMINOTRANSFERASE 87 U/L (12-78); ALBUMIN 2.4 G/DL (3.4-5.0); ALBUMIN/GLOBULIN RATIO 0.6 (1.1-1.5); ALKALINE PHOSPHATASE 55 IU/L (46-116); ANION GAP 5 (8-16); ASPARTATE AMINO TRANSFERASE 59 U/L (10-37); BILIRUBIN,TOTAL 0.3 MG/DL (0.1-1.0); BLOOD UREA NITROGEN 41 MG/DL (7-18); BUN/CREATININE RATIO 25.6 (6.6-38.0); CALCIUM 8.3 MG/DL (8.5-10.1); CHLORIDE 104 MMOL/L (99-107); GLUCOSE 242 MG/DL (70-104); POTASSIUM 4.4 MMOL/L (3.5-5.1); SODIUM 141 MMOL/L (135-145); TOTAL CARBON DIOXIDE 32.5 MMOL/L (24-32); TOTAL PROTEIN 6.3 G/DL (6.4-8.2); eGFR 31 ML/MIN
[2017-11-01 13:29] LABS: TOTAL CELLS COUNTED 100
[2017-11-01 13:31] LABS: ANISOCYTOSIS FEW; PLATELET ESTIMATE NORMAL; POLYCHROMASIA FEW; TOXIC GRANULATION 2+; TOXIC VACUOLATION FEW
[2017-11-01] MEDS ORDERED: piperacillin/tazo 3.375gm/50ml 50 ML IV SCH (14:00)
[2017-11-01] MEDS ORDERED: vancomycin/NS 1 GM ADD-VANTAGE 250 ML IV SCH ×2 (14:04→20:00)
[2017-11-01] MEDS ORDERED: normal saline 1000ML IV soln IV ONE (14:25)
[2017-11-01] MEDS ORDERED: nitroGLYCERIN 0.4mg SUBLingual tab SL PRN (15:10)
[2017-11-01] MEDS ORDERED: magnesium 4gm in 100ml NS 100 ML IV PRN (15:25)
[2017-11-01] MEDS ORDERED: magnesium 2GM in 50ml NS 50 ML IV PRN (15:25)
[2017-11-01] MEDS ORDERED: dextrose ORAL solution 15 GM/59 ML bottle PO PRN ×2 (15:25)
[2017-11-01] MEDS ORDERED: glucagon, human recombinant 1mg kit SUBCUT PRN (15:25)
[2017-11-01] MEDS ORDERED: mag hydrox/Alum hydrox/simeth 30ml oral suspension PO PRN (15:25)
[2017-11-01] MEDS ORDERED: potassium Cl 40MEQ/NS 500ml 500 ML IV PRN ×2 (15:25)
[2017-11-01] MEDS ORDERED: magnesium Cl slow-release 64mg tablet PO PRN (15:25)
[2017-11-01] MEDS ORDERED: potassium Cl 20 mEq SR tablet PO PRN ×2 (15:25)
[2017-11-01] MEDS ORDERED: acetaminophen 325mg tablet PO PRN ×2 (15:25)
[2017-11-01] MEDS ORDERED: dextrose 50%-water 50ml dispensing syringe IV PRN ×2 (15:25)
[2017-11-01] MEDS ORDERED: ondansetron/PF 4mg/2ml inj IV PRN (15:25)
[2017-11-01] MEDS ORDERED: MESSAGE TO PHARMACY PO ONE (15:25)
[2017-11-01] MEDS ORDERED: magnesium hydroxide 30ml (MOM) UD suspension PO PRN (15:25)
[2017-11-01] MEDS: heparin, porcine 5000 units/ml vial SQ SCH (16:12)
[2017-11-01] MEDS: methylPREDNISolone sod succ 125mg/2ml vial IV SCH (16:12)
[2017-11-01] MEDS: piperacillin/tazo 4.5gm/100ml 100 ML IV SCH (16:32)
[2017-11-01] MEDS: ipratropium/albuterol 3ml nebule NEB PRN ×3 (16:57→22:29)
[2017-11-01 18:50] VITALS: BP 159/70
[2017-11-01] MEDS: naphazoline/pheniramine eye 1 DROP BOTTLE EACHEYE SCH (21:47)
[2017-11-01] MEDS: pregabalin 25mg capsule PO SCH (21:48)
[2017-11-01] MEDS: QUEtiapine 25mg tablet PO SCH (21:48)
[2017-11-01] MEDS: HYDROcodone/acetaminophen 5mg/325mg tablet PO PRN (21:54)
[2017-11-01] MEDS: HYDROcodone & chlorphen. 10-8mg/5ml oral susp. PO PRN (21:54)
[2017-11-01] MEDS: insulin glargine (Lantus) pen - multi-dose SQ SCH (22:05)
[2017-11-01] MEDS: insulin Lispro (HumaLOG) vial - multi-dose SQ SCH (22:07)
[2017-11-02] VITALS: BP 144/81
[2017-11-02] MEDS: methylPREDNISolone sod succ 125mg/2ml vial IV SCH ×3 (00:38→15:25)
[2017-11-02] MEDS: piperacillin/tazo 4.5gm/100ml 100 ML IV SCH ×3 (00:43→17:10)
[2017-11-02] MEDS: heparin, porcine 5000 units/ml vial SQ SCH ×3 (00:47→15:31)
[2017-11-02] MEDS: ipratropium/albuterol 3ml nebule NEB PRN ×3 (02:34→15:18)
[2017-11-02 06:10] LABS: BASOPHILS # (AUTO) 0.1 X10'3 (0-0.2); BASOPHILS % (AUTO) 0.9 % (0-1); EOSINOPHILS # (AUTO) 0.1 X10'3 (0-0.9); EOSINOPHILS % (AUTO) 1.4 % (0-6); HEMATOCRIT 27.2 % (35.0-45.0); HEMOGLOBIN 9.2 g/dl (12.0-16.0); LYMPHOCYTES # (AUTO) 0.2 X10'3 (1.1-4.8); LYMPHOCYTES % (AUTO) 2.1 % (21-51); MEAN CORPUSCULAR HEMOGLOBIN 30.8 PG (27.0-31.0); MEAN CORPUSCULAR HGB CONC 33.9 % (33.0-36.5); MEAN CORPUSCULAR VOLUME 90.7 FL (78-98); MEAN PLATELET VOLUME 7.9 FL (7.4-10.4); MONOCYTES # (AUTO) 0.1 X10'3 (0-0.9); NEUTROPHILS # (AUTO) 10.3 X10'3 (1.8-7.7); NEUTROPHILS % (AUTO) 94.6 % (42-75); PLATELET COUNT 234 X10'3 (140-440); RED CELL DISTRIBUTION WIDTH 15.9 % (11.5-14.5); WHITE BLOOD COUNT 10.9 X10'3 (4.5-11.0)
[2017-11-02 06:28] LABS: ALANINE AMINOTRANSFERASE 73 U/L (12-78); ALBUMIN 2.1 G/DL (3.4-5.0); ALBUMIN/GLOBULIN RATIO 0.6 (1.1-1.5); ALKALINE PHOSPHATASE 44 IU/L (46-116); ANION GAP 5 (8-16); ASPARTATE AMINO TRANSFERASE 42 U/L (10-37); BILIRUBIN,TOTAL 0.3 MG/DL (0.1-1.0); BLOOD UREA NITROGEN 37 MG/DL (7-18); BUN/CREATININE RATIO 24.7 (6.6-38.0); CALCIUM 7.7 MG/DL (8.5-10.1); CHLORIDE 106 MMOL/L (99-107); GLUCOSE 271 MG/DL (70-104); MAGNESIUM 2.2 MG/DL (1.5-2.4); PHOSPHORUS 2.8 MG/DL (2.3-4.5); SODIUM 141 MMOL/L (135-145); TOTAL CARBON DIOXIDE 29.7 MMOL/L (24-32); TOTAL PROTEIN 5.4 G/DL (6.4-8.2); eGFR 33 ML/MIN
[2017-11-02] MEDS: K and/or MAG REPLACEMENT MC SCH (08:00)
[2017-11-02] MEDS: naphazoline/pheniramine eye 1 DROP BOTTLE EACHEYE SCH ×2 (08:00→20:00)
[2017-11-02] MEDS: levoTHYROXINE 75mcg tablet PO SCH (08:53)
[2017-11-02] MEDS: pregabalin 25mg capsule PO SCH ×2 (08:53→20:38)
[2017-11-02] MEDS: atorvastatin 10mg tablet PO SCH (08:53)
[2017-11-02] MEDS: amLODIPine 5mg tablet PO SCH (08:54)
[2017-11-02] MEDS: aspirin 81mg tab.chew PO SCH (08:54)
[2017-11-02] MEDS: insulin Lispro (HumaLOG) vial - multi-dose SQ SCH ×3 (09:15→19:02)
[2017-11-02 09:51] VITALS: BP 148/87
[2017-11-02 12:13] VITALS: BP 150/55
[2017-11-02] MEDS: HYDROcodone & chlorphen. 10-8mg/5ml oral susp. PO PRN (13:37)
[2017-11-02] MEDS: lactobacillus rhamnosus 10,000 MMU CELLS/CAPSULE PO SCH (17:10)
[2017-11-02 20:00] VITALS: BP 136/55
[2017-11-02] MEDS: QUEtiapine 25mg tablet PO SCH (20:38)
[2017-11-02] MEDS: HYDROcodone/acetaminophen 5mg/325mg tablet PO PRN (20:39)
[2017-11-02] MEDS: insulin glargine (Lantus) pen - multi-dose SQ SCH (20:58)
[2017-11-02] MEDS: nystatin 500,000 unit/5ML UD oral suspension PO SCH (21:49)
[2017-11-03] VITALS: BP 147/57
[2017-11-03] MEDS: piperacillin/tazo 4.5gm/100ml 100 ML IV SCH ×2 (00:42→08:05)
[2017-11-03] MEDS: methylPREDNISolone sod succ 125mg/2ml vial IV SCH ×2 (00:48→08:07)
[2017-11-03] MEDS: heparin, porcine 5000 units/ml vial SQ SCH ×2 (00:52→08:06)
[2017-11-03] MEDS: HYDROcodone & chlorphen. 10-8mg/5ml oral susp. PO PRN (04:38)
[2017-11-03 06:05] LABS: BASOPHILS # (AUTO) 0.1 X10'3 (0-0.2); BASOPHILS % (AUTO) 0.5 % (0-1); EOSINOPHILS # (AUTO) 0.1 X10'3 (0-0.9); EOSINOPHILS % (AUTO) 1.2 % (0-6); HEMATOCRIT 27.8 % (35.0-45.0); HEMOGLOBIN 9.4 g/dl (12.0-16.0); LYMPHOCYTES # (AUTO) 0.5 X10'3 (1.1-4.8); LYMPHOCYTES % (AUTO) 4.4 % (21-51); MEAN CORPUSCULAR VOLUME 91.1 FL (78-98); MEAN PLATELET VOLUME 7.5 FL (7.4-10.4); MONOCYTES # (AUTO) 0.2 X10'3 (0-0.9); MONOCYTES % (AUTO) 1.8 % (2-12); NEUTROPHILS # (AUTO) 11.5 X10'3 (1.8-7.7); NEUTROPHILS % (AUTO) 92.1 % (42-75); PLATELET COUNT 236 X10'3 (140-440); RED BLOOD COUNT 3.05 X10'6 (4.20-5.60); RED CELL DISTRIBUTION WIDTH 16.2 % (11.5-14.5); WHITE BLOOD COUNT 12.4 X10'3 (4.5-11.0)
[2017-11-03 06:22] LABS: ALANINE AMINOTRANSFERASE 64 U/L (12-78); ALBUMIN 2.2 G/DL (3.4-5.0); ALBUMIN/GLOBULIN RATIO 0.6 (1.1-1.5); ALKALINE PHOSPHATASE 43 IU/L (46-116); ANION GAP 5 (8-16); ASPARTATE AMINO TRANSFERASE 43 U/L (10-37); BILIRUBIN,TOTAL 0.4 MG/DL (0.1-1.0); BLOOD UREA NITROGEN 37 MG/DL (7-18); BUN/CREATININE RATIO 24.7 (6.6-38.0); CALCIUM 7.8 MG/DL (8.5-10.1); CHLORIDE 106 MMOL/L (99-107); GLUCOSE 200 MG/DL (70-104); MAGNESIUM 2.1 MG/DL (1.5-2.4); SODIUM 139 MMOL/L (135-145); TOTAL CARBON DIOXIDE 28.1 MMOL/L (24-32); TOTAL PROTEIN 5.7 G/DL (6.4-8.2); eGFR 33 ML/MIN
[2017-11-03 07:00] VITALS: BP 150/71
[2017-11-03] MEDS: naphazoline/pheniramine eye 1 DROP BOTTLE EACHEYE SCH (08:00)
[2017-11-03] MEDS: K and/or MAG REPLACEMENT MC SCH (08:00)
[2017-11-03] MEDS: nystatin 500,000 unit/5ML UD oral suspension PO SCH ×2 (08:06→13:39)
[2017-11-03] MEDS: amLODIPine 5mg tablet PO SCH (08:06)
[2017-11-03] MEDS: levoTHYROXINE 75mcg tablet PO SCH (08:06)
[2017-11-03] MEDS: atorvastatin 10mg tablet PO SCH (08:06)
[2017-11-03] MEDS: pregabalin 25mg capsule PO SCH (08:06)
[2017-11-03] MEDS: lactobacillus rhamnosus 10,000 MMU CELLS/CAPSULE PO SCH (08:06)
[2017-11-03] MEDS: insulin Lispro (HumaLOG) vial - multi-dose SQ SCH (08:26)
[2017-11-03] MEDS: aspirin 81mg tab.chew PO SCH (08:31)
[2017-11-03 11:00] VITALS: BP 136/61
[2017-11-05] MEDS ORDERED: VANCOMYCIN LEVEL IV NR (15:30)
== END 2017-11-03 13:54 | DRG 871 ==
LOC: ER 11:33 → ED HOLD 15:24 → MED 3N 18:45 → CANBEDREQ 19:47
PROVIDERS: ADMIT Internal Medicine; ATTEND Family Medicine
DX: A41.9 Sepsis, unspecified organism (principal); J18.9 Pneumonia, unspecified organism; J96.01 Acute respiratory failure with hypoxia; N17.9 Acute kidney failure, unspecified; I50.33 Acute on chronic diastolic (congestive) heart failure; I13.0 Hypertensive heart and chronic kidney disease with heart failure and stage 1 through stage 4 chronic kidney disease, or unspecified chronic kidney disease; I48.91 Unspecified atrial fibrillation; J44.0 Chronic obstructive pulmonary disease with (acute) lower respiratory infection; J44.1 Chronic obstructive pulmonary disease with (acute) exacerbation; N18.3 Chronic kidney disease, stage 3 (moderate); F32.9 Major depressive disorder, single episode, unspecified; F41.9 Anxiety disorder, unspecified; D64.9 Anemia, unspecified; G89.29 Other chronic pain; E03.9 Hypothyroidism, unspecified; I25.10 Atherosclerotic heart disease of native coronary artery without angina pectoris; Z95.5 Presence of coronary angioplasty implant and graft; Z90.710 Acquired absence of both cervix and uterus; Z88.5 Allergy status to narcotic agent; Z88.8 Allergy status to other drugs, medicaments and biological substances; Z79.82 Long term (current) use of aspirin; Z79.899 Other long term (current) drug therapy; Z79.51 Long term (current) use of inhaled steroids; Z79.84 Long term (current) use of oral hypoglycemic drugs; Z87.891 Personal history of nicotine dependence
CPT/HCPCS: 36415; 71045; 80053; 82948; 83605; 83735; 83880; 84100; 84145; 84443; 85025; 87040; 87070; 93005; 94640; 94760; 96365; 96367; 97110; 97116; 97161; 99291; J1644; J1815; J2543; J2930; J3370; J7030

== ENCOUNTER 2017-11-10 16:38 | Inpatient (IN) | payer MEDICARE, OTHER ==
[~2017-11-10] VITALS: Ht 167.6 cm; Wt 111.0 kg
[~2017-11-10 16:38] MED LIST changes: -LEVO500T2 PO; -PAT0.1OS OP; -QUET25TA PO
[2017-11-10 17:31] LABS: BASOPHILS % (AUTO) 0.1 % (0-1); EOSINOPHILS # (AUTO) 0.1 X10'3 (0-0.9); EOSINOPHILS % (AUTO) 1.3 % (0-6); HEMATOCRIT 23.8 % (35.0-45.0); HEMOGLOBIN 7.9 g/dl (12.0-16.0); LYMPHOCYTES # (AUTO) 0.5 X10'3 (1.1-4.8); LYMPHOCYTES % (AUTO) 6.2 % (21-51); MEAN CORPUSCULAR HEMOGLOBIN 30.4 PG (27.0-31.0); MEAN CORPUSCULAR HGB CONC 33.1 % (33.0-36.5); MEAN CORPUSCULAR VOLUME 92.1 FL (78-98); MEAN PLATELET VOLUME 8.1 FL (7.4-10.4); MONOCYTES # (AUTO) 0.1 X10'3 (0-0.9); MONOCYTES % (AUTO) 0.9 % (2-12); NEUTROPHILS # (AUTO) 7.1 X10'3 (1.8-7.7); NEUTROPHILS % (AUTO) 91.5 % (42-75); PLATELET COUNT 139 X10'3 (140-440); RED BLOOD COUNT 2.58 X10'6 (4.20-5.60); RED CELL DISTRIBUTION WIDTH 16.3 % (11.5-14.5); WHITE BLOOD COUNT 7.8 X10'3 (4.5-11.0)
[2017-11-10 17:44] LABS: ALANINE AMINOTRANSFERASE 26 U/L (12-78); ALBUMIN 2.2 G/DL (3.4-5.0); ALBUMIN/GLOBULIN RATIO 0.7 (1.1-1.5); ALKALINE PHOSPHATASE 34 IU/L (46-116); ANION GAP 8 (8-16); ASPARTATE AMINO TRANSFERASE 15 U/L (10-37); BILIRUBIN,TOTAL 0.4 MG/DL (0.1-1.0); BLOOD UREA NITROGEN 77 MG/DL (7-18); BUN/CREATININE RATIO 48.1 (6.6-38.0); CALCIUM 8.4 MG/DL (8.5-10.1); CHLORIDE 105 MMOL/L (99-107); GLUCOSE 272 MG/DL (70-104); POTASSIUM 4.3 MMOL/L (3.5-5.1); SODIUM 144 MMOL/L (135-145); TOTAL CARBON DIOXIDE 31.2 MMOL/L (24-32); TOTAL PROTEIN 5.4 G/DL (6.4-8.2); eGFR 31 ML/MIN
[2017-11-10 17:57] LABS: PROTHROMBIN TIME 10.4 SECONDS (9.0-12.0)
[2017-11-10] MEDS ORDERED: pantoprazole 40 MG vial IV ONE (18:05)
[2017-11-10] MEDS ORDERED: normal saline 1000ml 1,000 ML IV ONE (18:05)
[2017-11-10] MEDS: dextrose 5%-1/2 normal saline 1,000 ML IV SCH (18:39)
[2017-11-10] MEDS ORDERED: potassium Cl 40MEQ/NS 500ml 500 ML IV PRN ×2 (18:40)
[2017-11-10] MEDS ORDERED: potassium Cl 20 mEq SR tablet PO PRN ×2 (18:40)
[2017-11-10] MEDS ORDERED: ondansetron/PF 4mg/2ml inj IV PRN (18:40)
[2017-11-10] MEDS ORDERED: morphine 5 MG/ML injection IV PRN (18:40)
[2017-11-10] MEDS ORDERED: magnesium 4gm in 100ml NS 100 ML IV PRN (18:40)
[2017-11-10] MEDS ORDERED: acetaminophen 325mg tablet PO PRN (18:40)
[2017-11-10] MEDS ORDERED: magnesium 2GM in 50ml NS 50 ML IV PRN (18:40)
[2017-11-10] MEDS ORDERED: magnesium Cl slow-release 64mg tablet PO PRN (18:40)
[2017-11-10] MEDS ORDERED: magnesium hydroxide 30ml (MOM) UD suspension PO PRN (18:40)
[2017-11-10] MEDS ORDERED: mag hydrox/Alum hydrox/simeth 30ml oral suspension PO PRN (18:40)
[2017-11-10 19:01] LABS: CLARITY,URINE SLIGHTLY CLOUDY (Clear); COLOR,URINE YELLOW (Yellow); GLUCOSE, URINE NEGATIVE (Neg); KETONES,URINE NEGATIVE (Neg); LEUKOCYTE ESTERASE ,URINE NEGATIVE (Neg); NITRITES, URINE NEGATIVE (Neg); OCCULT BLOOD,URINE NEGATIVE (Neg); PROTEIN,URINE NEGATIVE (Neg); UA COLLECTION TYPE STRAIGHT CATH; UROBILINOGEN,URINE 0.2 E.U/dL (0.2-1.0)
[2017-11-10] MEDS ORDERED: pantoprazole 40 MG vial IV SCH (20:00)
[2017-11-10] MEDS ORDERED: BUDESONIDE IH SCH (20:00)
[2017-11-10] MEDS ORDERED: PREGABALIN PO SCH (20:00)
[2017-11-10 20:16] LABS: AMORPHOUS URATES 2+; BACTERIA,URINE NONE SEEN /HPF (Neg); MUCUS STRANDS NONE SEEN /LPF (Neg); RBC,URINE NONE SEEN /HPF (0-2); SQUAMOUS EPITHELIAL CELL,UR MODERATE /LPF (FEW); WBC,URINE 0-4 /HPF (0-4)
[2017-11-10] MEDS: pregabalin 25mg capsule PO SCH (20:45)
[2017-11-11] VITALS (25 sets, daily range): BP systolic 122–163; BP diastolic 39–93
[2017-11-11] MEDS: pantoprazole 40MG/NS 100ML BAG 100 ML IV SCH ×6 (01:00→20:41)
[2017-11-11 04:58] LABS: BASOPHILS % (AUTO) 0.3 % (0-1); EOSINOPHILS # (AUTO) 0.1 X10'3 (0-0.9); EOSINOPHILS % (AUTO) 1.8 % (0-6); LYMPHOCYTES # (AUTO) 1.6 X10'3 (1.1-4.8); LYMPHOCYTES % (AUTO) 20.7 % (21-51); MEAN CORPUSCULAR HEMOGLOBIN 30.2 PG (27.0-31.0); MEAN CORPUSCULAR VOLUME 91.6 FL (78-98); MEAN PLATELET VOLUME 8.3 FL (7.4-10.4); MONOCYTES # (AUTO) 0.2 X10'3 (0-0.9); MONOCYTES % (AUTO) 2.5 % (2-12); NEUTROPHILS # (AUTO) 5.9 X10'3 (1.8-7.7); NEUTROPHILS % (AUTO) 74.7 % (42-75); PLATELET COUNT 123 X10'3 (140-440); RED BLOOD COUNT 2.21 X10'6 (4.20-5.60); WHITE BLOOD COUNT 7.9 X10'3 (4.5-11.0)
[2017-11-11 05:06] LABS: ANION GAP 6 (8-16); BLOOD UREA NITROGEN 67 MG/DL (7-18); BUN/CREATININE RATIO 47.9 (6.6-38.0); CHLORIDE 109 MMOL/L (99-107); GLUCOSE 184 MG/DL (70-104); MAGNESIUM 1.9 MG/DL (1.5-2.4); POTASSIUM 3.8 MMOL/L (3.5-5.1); SODIUM 145 MMOL/L (135-145); TOTAL CARBON DIOXIDE 29.6 MMOL/L (24-32); eGFR 36 ML/MIN
[2017-11-11 05:32] LABS: HEMATOCRIT 20.2 % (35.0-45.0); HEMOGLOBIN 6.7 g/dl (12.0-16.0)
[2017-11-11] MEDS ORDERED: diphenhydrAMINE 25mg capsule PO ONE (05:40)
[2017-11-11] MEDS ORDERED: acetaminophen 325mg tablet PO ONE (05:40)
[2017-11-11] MEDS: dextrose 5%-1/2 normal saline 1,000 ML IV SCH ×2 (07:59→20:41)
[2017-11-11] MEDS: K and/or MAG REPLACEMENT MC SCH (08:00)
[2017-11-11] MEDS: fluticasone furoate 100MCG/puff inhaler IH SCH (08:00)
[2017-11-11 08:18] LABS: OCCULT BLOOD STOOL POSITIVE (Neg)
[2017-11-11] MEDS: atorvastatin 10mg tablet PO SCH (08:42)
[2017-11-11] MEDS: levoTHYROXINE 75mcg tablet PO SCH (08:43)
[2017-11-11] MEDS: pregabalin 25mg capsule PO SCH ×2 (08:43→20:41)
[2017-11-11] MEDS ORDERED: furosemide 20 MG/2 ML vial IV ONE (09:45)
[2017-11-11] MEDS ORDERED: HYDROcodone/acetaminophen 5mg/325mg tablet PO PRN (12:05)
[2017-11-11] MEDS: HYDROcodone/acetaminophen 10/325mg tab PO PRN ×2 (12:36→23:51)
[2017-11-11] MEDS ORDERED: fentaNYL/PF 50MCG/1 ML 2ML syringe IV PRN (12:45)
[2017-11-11] MEDS ORDERED: MIDAZolam 5mg/5ml vial IV PRN (12:45)
[2017-11-11] MEDS ORDERED: LIDOcaine Viscous 15ml cup PO ONE (12:45)
[2017-11-11] MEDS ORDERED: simethicone 40mg/0.6ml oral drops 30ml MC ONE (12:45)
[2017-11-11] MEDS ORDERED: normal saline 1000ml 1,000 ML IV SCH (12:45)
[2017-11-11] MEDS ORDERED: MIDAZolam 1mg/ml 10ml vial ONE (12:59)
[2017-11-11] MEDS ORDERED: fentaNYL/PF 50MCG/1 ML 2ML syringe ONE (12:59)
[2017-11-11] MEDS ORDERED: LIDOcaine Viscous 15ml cup ONE (12:59)
[2017-11-11 20:16] LABS: HEMATOCRIT 28.3 % (35.0-45.0); HEMOGLOBIN 9.4 g/dl (12.0-16.0); MEAN CORPUSCULAR HEMOGLOBIN 29.6 PG (27.0-31.0); MEAN CORPUSCULAR HGB CONC 33.4 % (33.0-36.5); MEAN CORPUSCULAR VOLUME 88.4 FL (78-98); MEAN PLATELET VOLUME 8.9 FL (7.4-10.4); PLATELET COUNT 122 X10'3 (140-440); WHITE BLOOD COUNT 9.5 X10'3 (4.5-11.0)
[2017-11-11] MEDS: pantoprazole 40 MG vial IV SCH (23:10)
[2017-11-12] VITALS: BP 141/64
[2017-11-12] MEDS: pantoprazole 40MG/NS 100ML BAG 100 ML IV SCH ×6 (01:40→22:32)
[2017-11-12 04:30] VITALS: BP 145/62
[2017-11-12 05:33] LABS: BASOPHILS % (AUTO) 0.2 % (0-1); EOSINOPHILS # (AUTO) 0.3 X10'3 (0-0.9); EOSINOPHILS % (AUTO) 4.5 % (0-6); HEMATOCRIT 24.3 % (35.0-45.0); HEMOGLOBIN 8.1 g/dl (12.0-16.0); LYMPHOCYTES # (AUTO) 1.5 X10'3 (1.1-4.8); LYMPHOCYTES % (AUTO) 20.8 % (21-51); MEAN CORPUSCULAR HEMOGLOBIN 29.9 PG (27.0-31.0); MEAN CORPUSCULAR HGB CONC 33.4 % (33.0-36.5); MEAN CORPUSCULAR VOLUME 89.6 FL (78-98); MEAN PLATELET VOLUME 8.1 FL (7.4-10.4); MONOCYTES # (AUTO) 0.2 X10'3 (0-0.9); MONOCYTES % (AUTO) 3.4 % (2-12); NEUTROPHILS # (AUTO) 5.2 X10'3 (1.8-7.7); NEUTROPHILS % (AUTO) 71.1 % (42-75); PLATELET COUNT 112 X10'3 (140-440); RED BLOOD COUNT 2.71 X10'6 (4.20-5.60); RED CELL DISTRIBUTION WIDTH 18.3 % (11.5-14.5); WHITE BLOOD COUNT 7.4 X10'3 (4.5-11.0)
[2017-11-12 06:11] LABS: ANION GAP 7 (8-16); BLOOD UREA NITROGEN 40 MG/DL (7-18); BUN/CREATININE RATIO 30.8 (6.6-38.0); CALCIUM 7.4 MG/DL (8.5-10.1); CHLORIDE 108 MMOL/L (99-107); GLUCOSE 167 MG/DL (70-104); MAGNESIUM 1.7 MG/DL (1.5-2.4); POTASSIUM 3.5 MMOL/L (3.5-5.1); SODIUM 143 MMOL/L (135-145); TOTAL CARBON DIOXIDE 28.2 MMOL/L (24-32); eGFR 39 ML/MIN
[2017-11-12 06:39] LABS: H PYLORI ANTIBODY NEGATIVE (Neg)
[2017-11-12 07:01] VITALS: BP 137/57
[2017-11-12] MEDS: levoTHYROXINE 75mcg tablet PO SCH (07:17)
[2017-11-12] MEDS: pregabalin 25mg capsule PO SCH ×2 (07:17→21:07)
[2017-11-12] MEDS: atorvastatin 10mg tablet PO SCH (07:17)
[2017-11-12] MEDS: K and/or MAG REPLACEMENT MC SCH (07:19)
[2017-11-12] MEDS: pantoprazole 40 MG vial IV SCH (08:00)
[2017-11-12 11:00] VITALS: BP 181/60
[2017-11-12] MEDS: dextrose 5%-1/2 normal saline 1,000 ML IV SCH (11:59)
[2017-11-12] MEDS: fluticasone furoate 100MCG/puff inhaler IH SCH (12:13)
[2017-11-12] MEDS ORDERED: glucagon, human recombinant 1mg kit SUBCUT PRN (14:15)
[2017-11-12] MEDS ORDERED: insulin Lispro (HumaLOG) vial - multi-dose SQ SCH (14:15)
[2017-11-12] MEDS ORDERED: dextrose 50%-water 50ml dispensing syringe IV PRN ×2 (14:15)
[2017-11-12] MEDS ORDERED: MESSAGE TO PHARMACY PO ONE (14:15)
[2017-11-12] MEDS ORDERED: benzocaine/menthol oral lozeng 1 EACH BOX MM PRN (14:15)
[2017-11-12] MEDS ORDERED: dextrose ORAL solution 15 GM/59 ML bottle PO PRN ×2 (14:15)
[2017-11-12] MEDS ORDERED: insulin regular, human vial - multi-dose SQ SCH (14:15)
[2017-11-12] MEDS ORDERED: albuterol 2.5 MG/3 ML nebule NEB PRN (14:20)
[2017-11-12 16:31] LABS: HEMATOCRIT 26.6 % (35.0-45.0); HEMOGLOBIN 8.7 g/dl (12.0-16.0); MEAN CORPUSCULAR HEMOGLOBIN 29.5 PG (27.0-31.0); MEAN CORPUSCULAR HGB CONC 32.8 % (33.0-36.5); MEAN PLATELET VOLUME 7.9 FL (7.4-10.4); PLATELET COUNT 123 X10'3 (140-440); RED BLOOD COUNT 2.95 X10'6 (4.20-5.60); RED CELL DISTRIBUTION WIDTH 17.9 % (11.5-14.5); WHITE BLOOD COUNT 8.7 X10'3 (4.5-11.0)
[2017-11-12] MEDS: HYDROcodone/acetaminophen 10/325mg tab PO PRN (16:35)
[2017-11-12 19:30] VITALS: BP 148/65
[2017-11-12] MEDS: ipratropium/albuterol 3ml nebule NEB SCH (21:00)
[2017-11-12] MEDS: insulin glargine (Lantus) pen - multi-dose SQ SCH (21:00)
[2017-11-13] VITALS: BP 125/46
[2017-11-13] MEDS: HYDROcodone/acetaminophen 10/325mg tab PO PRN (03:19)
[2017-11-13] MEDS: pantoprazole 40MG/NS 100ML BAG 100 ML IV SCH ×2 (03:45→09:06)
[2017-11-13 06:55] LABS: ALBUMIN 1.9 G/DL (3.4-5.0); ANION GAP 7 (8-16); BLOOD UREA NITROGEN 24 MG/DL (7-18); CALCIUM 7.5 MG/DL (8.5-10.1); CHLORIDE 109 MMOL/L (99-107); GLUCOSE 146 MG/DL (70-104); MAGNESIUM 1.7 MG/DL (1.5-2.4); POTASSIUM 4.2 MMOL/L (3.5-5.1); SODIUM 140 MMOL/L (135-145); TOTAL CARBON DIOXIDE 24.2 MMOL/L (24-32); eGFR 53 ML/MIN
[2017-11-13 07:00] VITALS: BP 138/58
[2017-11-13] MEDS ORDERED: pantoprazole 40mg Tablet.DR PO SCH (07:30)
[2017-11-13] MEDS: K and/or MAG REPLACEMENT MC SCH (08:00)
[2017-11-13] MEDS: ipratropium/albuterol 3ml nebule NEB SCH ×2 (08:45→20:13)
[2017-11-13] MEDS: fluticasone furoate 100MCG/puff inhaler IH SCH (08:49)
[2017-11-13] MEDS: levoTHYROXINE 75mcg tablet PO SCH (09:04)
[2017-11-13] MEDS: atorvastatin 10mg tablet PO SCH (09:05)
[2017-11-13] MEDS: pregabalin 25mg capsule PO SCH ×2 (09:05→20:30)
[2017-11-13 09:11] LABS: BASOPHILS % (AUTO) 0 % (0-1); EOSINOPHILS # (AUTO) 0.2 X10'3 (0-0.9); EOSINOPHILS % (AUTO) 3.5 % (0-6); HEMATOCRIT 25.7 % (35.0-45.0); HEMOGLOBIN 8.4 g/dl (12.0-16.0); LYMPHOCYTES # (AUTO) 1.1 X10'3 (1.1-4.8); LYMPHOCYTES % (AUTO) 18.4 % (21-51); MEAN CORPUSCULAR HEMOGLOBIN 29.8 PG (27.0-31.0); MEAN CORPUSCULAR HGB CONC 32.8 % (33.0-36.5); MEAN CORPUSCULAR VOLUME 90.8 FL (78-98); MEAN PLATELET VOLUME 8.4 FL (7.4-10.4); MONOCYTES # (AUTO) 0.1 X10'3 (0-0.9); MONOCYTES % (AUTO) 0.9 % (2-12); NEUTROPHILS # (AUTO) 4.5 X10'3 (1.8-7.7); NEUTROPHILS % (AUTO) 77.2 % (42-75); PLATELET COUNT 129 X10'3 (140-440); RED BLOOD COUNT 2.83 X10'6 (4.20-5.60); RED CELL DISTRIBUTION WIDTH 17.8 % (11.5-14.5); WHITE BLOOD COUNT 5.8 X10'3 (4.5-11.0)
[2017-11-13 11:00] VITALS: BP 147/57
[2017-11-13] MEDS: metFORMIN 500mg tablet PO SCH (17:55)
[2017-11-13 20:00] VITALS: BP 148/68
[2017-11-13] MEDS: pantoprazole 40mg Tablet.DR PO SCH (20:30)
[2017-11-13] MEDS: insulin glargine (Lantus) pen - multi-dose SQ SCH (21:00)
[2017-11-14] VITALS: BP 146/57
[2017-11-14] MEDS: HYDROcodone/acetaminophen 10/325mg tab PO PRN ×2 (01:54→19:07)
[2017-11-14 06:13] LABS: BASOPHILS % (AUTO) 0 % (0-1); EOSINOPHILS # (AUTO) 0.2 X10'3 (0-0.9); EOSINOPHILS % (AUTO) 3.2 % (0-6); HEMATOCRIT 22.6 % (35.0-45.0); HEMOGLOBIN 7.7 g/dl (12.0-16.0); LYMPHOCYTES # (AUTO) 0.9 X10'3 (1.1-4.8); LYMPHOCYTES % (AUTO) 18.6 % (21-51); MEAN CORPUSCULAR HEMOGLOBIN 30.4 PG (27.0-31.0); MEAN CORPUSCULAR VOLUME 89.5 FL (78-98); MEAN PLATELET VOLUME 8.4 FL (7.4-10.4); MONOCYTES # (AUTO) 0.3 X10'3 (0-0.9); MONOCYTES % (AUTO) 5.2 % (2-12); NEUTROPHILS # (AUTO) 3.5 X10'3 (1.8-7.7); PLATELET COUNT 128 X10'3 (140-440); RED BLOOD COUNT 2.53 X10'6 (4.20-5.60); RED CELL DISTRIBUTION WIDTH 17.9 % (11.5-14.5); WHITE BLOOD COUNT 4.8 X10'3 (4.5-11.0)
[2017-11-14 06:55] LABS: ALBUMIN 2.1 G/DL (3.4-5.0); ANION GAP 5 (8-16); BLOOD UREA NITROGEN 17 MG/DL (7-18); BUN/CREATININE RATIO 13.1 (6.6-38.0); CALCIUM 7.9 MG/DL (8.5-10.1); CHLORIDE 109 MMOL/L (99-107); GLUCOSE 163 MG/DL (70-104); MAGNESIUM 1.5 MG/DL (1.5-2.4); POTASSIUM 3.7 MMOL/L (3.5-5.1); SODIUM 144 MMOL/L (135-145); TOTAL CARBON DIOXIDE 29.7 MMOL/L (24-32); eGFR 39 ML/MIN
[2017-11-14 07:29] VITALS: BP 155/66
[2017-11-14] MEDS: ipratropium/albuterol 3ml nebule NEB SCH ×2 (07:54→21:01)
[2017-11-14] MEDS: fluticasone furoate 100MCG/puff inhaler IH SCH (07:55)
[2017-11-14] MEDS: K and/or MAG REPLACEMENT MC SCH (08:00)
[2017-11-14] MEDS ORDERED: pantoprazole 40mg Tablet.DR PO SCH (08:00)
[2017-11-14] MEDS: metFORMIN 500mg tablet PO SCH ×2 (08:17→17:14)
[2017-11-14] MEDS: pantoprazole 40mg Tablet.DR PO SCH ×2 (08:17→19:06)
[2017-11-14] MEDS: atorvastatin 10mg tablet PO SCH (08:17)
[2017-11-14] MEDS: pregabalin 25mg capsule PO SCH ×2 (08:18→19:06)
[2017-11-14] MEDS: levoTHYROXINE 75mcg tablet PO SCH (08:18)
[2017-11-14 11:24] LABS: HEMATOCRIT 22.6 % (35.0-45.0); HEMOGLOBIN 7.6 g/dl (12.0-16.0); MEAN CORPUSCULAR HEMOGLOBIN 30.3 PG (27.0-31.0); MEAN CORPUSCULAR HGB CONC 33.8 % (33.0-36.5); MEAN CORPUSCULAR VOLUME 89.8 FL (78-98); MEAN PLATELET VOLUME 7.4 FL (7.4-10.4); PLATELET COUNT 135 X10'3 (140-440); RED BLOOD COUNT 2.52 X10'6 (4.20-5.60); RED CELL DISTRIBUTION WIDTH 17.2 % (11.5-14.5); WHITE BLOOD COUNT 4.8 X10'3 (4.5-11.0)
[2017-11-14 11:46] VITALS: BP 149/64
[2017-11-14 20:00] VITALS: BP 155/68
[2017-11-14] MEDS: insulin glargine (Lantus) pen - multi-dose SQ SCH (21:00)
[2017-11-15] VITALS: BP 166/71
[2017-11-15] MEDS: HYDROcodone/acetaminophen 10/325mg tab PO PRN (01:16)
[2017-11-15 06:07] LABS: BASOPHILS % (AUTO) 0.3 % (0-1); EOSINOPHILS # (AUTO) 0.2 X10'3 (0-0.9); EOSINOPHILS % (AUTO) 2.8 % (0-6); HEMOGLOBIN 7.3 g/dl (12.0-16.0); LYMPHOCYTES # (AUTO) 0.9 X10'3 (1.1-4.8); LYMPHOCYTES % (AUTO) 15.2 % (21-51); MEAN CORPUSCULAR HEMOGLOBIN 30.2 PG (27.0-31.0); MEAN CORPUSCULAR HGB CONC 33.7 % (33.0-36.5); MEAN CORPUSCULAR VOLUME 89.7 FL (78-98); MEAN PLATELET VOLUME 8.1 FL (7.4-10.4); MONOCYTES # (AUTO) 0.3 X10'3 (0-0.9); MONOCYTES % (AUTO) 4.4 % (2-12); NEUTROPHILS # (AUTO) 4.5 X10'3 (1.8-7.7); NEUTROPHILS % (AUTO) 77.3 % (42-75); PLATELET COUNT 138 X10'3 (140-440); RED BLOOD COUNT 2.42 X10'6 (4.20-5.60); RED CELL DISTRIBUTION WIDTH 17.1 % (11.5-14.5); WHITE BLOOD COUNT 5.8 X10'3 (4.5-11.0)
[2017-11-15 06:14] LABS: HEMATOCRIT 21.7 % (35.0-45.0)
[2017-11-15 06:20] LABS: ANION GAP 6 (8-16); BLOOD UREA NITROGEN 15 MG/DL (7-18); CALCIUM 8.3 MG/DL (8.5-10.1); CHLORIDE 109 MMOL/L (99-107); GLUCOSE 168 MG/DL (70-104); MAGNESIUM 1.6 MG/DL (1.5-2.4); POTASSIUM 3.6 MMOL/L (3.5-5.1); SODIUM 144 MMOL/L (135-145); TOTAL CARBON DIOXIDE 29.4 MMOL/L (24-32); eGFR 53 ML/MIN
[2017-11-15] MEDS: K and/or MAG REPLACEMENT MC SCH (07:03)
[2017-11-15] MEDS: atorvastatin 10mg tablet PO SCH (07:10)
[2017-11-15] MEDS: pregabalin 25mg capsule PO SCH (07:10)
[2017-11-15] MEDS: pantoprazole 40mg Tablet.DR PO SCH (07:10)
[2017-11-15] MEDS: levoTHYROXINE 75mcg tablet PO SCH (07:10)
[2017-11-15] MEDS: metFORMIN 500mg tablet PO SCH (07:10)
[2017-11-15] MEDS ORDERED: furosemide 20MG tablet PO SCH (08:00)
[2017-11-15 08:10] VITALS: BP 153/77
[2017-11-15 11:53] LABS: HEMATOCRIT 23.5 % (35.0-45.0); HEMOGLOBIN 7.9 g/dl (12.0-16.0); MEAN CORPUSCULAR HEMOGLOBIN 29.9 PG (27.0-31.0); MEAN CORPUSCULAR HGB CONC 33.8 % (33.0-36.5); MEAN CORPUSCULAR VOLUME 88.4 FL (78-98); MEAN PLATELET VOLUME 7.4 FL (7.4-10.4); PLATELET COUNT 158 X10'3 (140-440); RED BLOOD COUNT 2.66 X10'6 (4.20-5.60); RED CELL DISTRIBUTION WIDTH 17.1 % (11.5-14.5); WHITE BLOOD COUNT 5.9 X10'3 (4.5-11.0)
[2017-11-15] MEDS: fluticasone furoate 100MCG/puff inhaler IH SCH (12:22)
[2017-11-15] MEDS: ipratropium/albuterol 3ml nebule NEB SCH (12:22)
[2017-11-15] MEDS ORDERED: PANT40TA4 PO (13:54)
== END 2017-11-15 15:27 | disposition home health service (06) | DRG 682 ==
LOC: ER 16:39 → ED HOLD 18:39 → EDBEDREQTM 19:51 → SUR 3N 20:55
PROVIDERS: ADMIT Internal Medicine; ATTEND Family Medicine
PROC: 0DB68ZX Excision of Stomach, Via Natural or Artificial Opening Endoscopic, Diagnostic (ICD-10-PCS; principal; 2017-11-11)
PROC: 30233N1 Transfusion of Nonautologous Red Blood Cells into Peripheral Vein, Percutaneous Approach (ICD-10-PCS; 2017-11-11)
DX: N17.9 Acute kidney failure, unspecified (principal); K26.4 Chronic or unspecified duodenal ulcer with hemorrhage; E11.22 Type 2 diabetes mellitus with diabetic chronic kidney disease; I48.91 Unspecified atrial fibrillation; I50.32 Chronic diastolic (congestive) heart failure; I13.0 Hypertensive heart and chronic kidney disease with heart failure and stage 1 through stage 4 chronic kidney disease, or unspecified chronic kidney disease; D62 Acute posthemorrhagic anemia; K29.61 Other gastritis with bleeding; E78.5 Hyperlipidemia, unspecified; M54.9 Dorsalgia, unspecified; N18.3 Chronic kidney disease, stage 3 (moderate); E03.9 Hypothyroidism, unspecified; T39.015A Adverse effect of aspirin, initial encounter; F32.9 Major depressive disorder, single episode, unspecified; F41.9 Anxiety disorder, unspecified; G89.29 Other chronic pain; J44.9 Chronic obstructive pulmonary disease, unspecified; Z90.710 Acquired absence of both cervix and uterus; Z88.6 Allergy status to analgesic agent; Z88.8 Allergy status to other drugs, medicaments and biological substances; Z79.899 Other long term (current) drug therapy; Z79.82 Long term (current) use of aspirin; Z79.84 Long term (current) use of oral hypoglycemic drugs; Z87.01 Personal history of pneumonia (recurrent); Z87.891 Personal history of nicotine dependence; Y92.89 Other specified places as the place of occurrence of the external cause
CPT/HCPCS: 36415; 43239; 71045; 80048; 80053; 81001; 82272; 82948; 83735; 84443; 85025; 85027; 85610; 86677; 86885; 86900; 86901; 86920; 87070; 88305; 93005; 94640; 94760; 96361; 96374; 97110; 97116; 97161; 97530; 99285; A4620; C9113; G0500; J1815; J1940; J2250; J3010; J7030; P9016; Q0163

== ENCOUNTER 2017-11-17 10:08 | Inpatient (IN) | payer MEDICARE, OTHER ==
[~2017-11-17] VITALS: Ht 167.6 cm; Wt 112.0 kg
[~2017-11-17 10:08] MED LIST changes: -ASPI-1071 PO; -DIPH1TAB PO; +PANT40TA4 PO; -PRED20TA PO
[2017-11-17 11:03] LABS: BASOPHILS % (AUTO) 0.3 % (0-1); EOSINOPHILS # (AUTO) 0.2 X10'3 (0-0.9); EOSINOPHILS % (AUTO) 3.2 % (0-6); HEMATOCRIT 23.8 % (35.0-45.0); HEMOGLOBIN 7.9 g/dl (12.0-16.0); LYMPHOCYTES # (AUTO) 0.9 X10'3 (1.1-4.8); LYMPHOCYTES % (AUTO) 19.3 % (21-51); MEAN CORPUSCULAR HEMOGLOBIN 29.5 PG (27.0-31.0); MEAN CORPUSCULAR VOLUME 89.4 FL (78-98); MEAN PLATELET VOLUME 7.2 FL (7.4-10.4); MONOCYTES # (AUTO) 0.3 X10'3 (0-0.9); MONOCYTES % (AUTO) 6.8 % (2-12); NEUTROPHILS # (AUTO) 3.4 X10'3 (1.8-7.7); NEUTROPHILS % (AUTO) 70.4 % (42-75); PLATELET COUNT 197 X10'3 (140-440); RED BLOOD COUNT 2.66 X10'6 (4.20-5.60); RED CELL DISTRIBUTION WIDTH 17.8 % (11.5-14.5); WHITE BLOOD COUNT 4.8 X10'3 (4.5-11.0)
[2017-11-17 11:27] LABS: ALANINE AMINOTRANSFERASE 16 U/L (12-78); ALBUMIN 2.3 G/DL (3.4-5.0); ALBUMIN/GLOBULIN RATIO 0.6 (1.1-1.5); ALKALINE PHOSPHATASE 44 IU/L (46-116); ANION GAP 7 (8-16); ASPARTATE AMINO TRANSFERASE 16 U/L (10-37); BILIRUBIN,TOTAL 0.4 MG/DL (0.1-1.0); BLOOD UREA NITROGEN 17 MG/DL (7-18); BUN/CREATININE RATIO 13.6 (6.6-38.0); CALCIUM 8.4 MG/DL (8.5-10.1); CHLORIDE 108 MMOL/L (99-107); CREATININE 1.25 MG/DL (0.40-0.90); GLUCOSE 171 MG/DL (70-104); MAGNESIUM 1.5 MG/DL (1.5-2.4); POTASSIUM 3.7 MMOL/L (3.5-5.1); SODIUM 145 MMOL/L (135-145); TOTAL CARBON DIOXIDE 30.3 MMOL/L (24-32); TOTAL PROTEIN 6.1 G/DL (6.4-8.2); eGFR 41 ML/MIN
[2017-11-17] MEDS ORDERED: furosemide 10 MG/1 ML 10ml inj IV ONE (11:55)
[2017-11-17] MEDS ORDERED: ipratropium/albuterol 3ml nebule NEB ONE (12:40)
[2017-11-17 12:42] LABS: D-DIMER 1.25 MG/L FEU (0-0.50); PROTHROMBIN TIME 10.1 SECONDS (9.0-12.0)
[2017-11-17] MEDS ORDERED: cefepime 1GM/NS ADD-VANTAGE 100 ML IV ONE (12:45)
[2017-11-17] MEDS ORDERED: azithromycin/NS 500mg/250ml 250 ML IV ONE (12:45)
[2017-11-17] MEDS ORDERED: magnesium hydroxide 30ml (MOM) UD suspension PO PRN (13:15)
[2017-11-17] MEDS ORDERED: mag hydrox/Alum hydrox/simeth 30ml oral suspension PO PRN (13:15)
[2017-11-17] MEDS ORDERED: ondansetron/PF 4mg/2ml inj IV PRN (13:15)
[2017-11-17] MEDS ORDERED: NITR0.4T SL (14:05)
[2017-11-17] MEDS ORDERED: PANT-47 PO (14:05)
[2017-11-17] MEDS ORDERED: AMLO5TAB PO (14:05)
[2017-11-17] MEDS ORDERED: ATOR10TA70 PO (14:06)
[2017-11-17] MEDS ORDERED: nitroGLYCERIN 0.4mg SUBLingual tab SL SCH (14:25)
[2017-11-17] MEDS: ipratropium/albuterol 3ml nebule NEB SCH ×3 (15:21→23:03)
[2017-11-17 16:30] VITALS: BP 186/63
[2017-11-17] MEDS: metFORMIN 500mg tablet PO SCH (17:00)
[2017-11-17 17:30] VITALS: BP 186/63
[2017-11-17] MEDS: hydrALAZINE 20mg/ml inj. IV PRN (17:37)
[2017-11-17] MEDS: HYDROcodone/acetaminophen 5mg/325mg tablet PO PRN ×2 (17:44→23:07)
[2017-11-17 18:00] VITALS: BP 165/57
[2017-11-17] MEDS: pantoprazole 40mg Tablet.DR PO SCH (19:49)
[2017-11-17] MEDS: cefepime 2g/NS 100ml ADVANTAGE 100 ML IV SCH (19:50)
[2017-11-17] MEDS ORDERED: pregabalin 25mg capsule PO SCH (20:00)
[2017-11-17] MEDS: pregabalin 25mg capsule PO SCH (20:11)
[2017-11-17 22:00] VITALS: BP 106/37
[2017-11-18] VITALS (10 sets, daily range): BP systolic 109–171; BP diastolic 42–70
[2017-11-18] MEDS: ipratropium/albuterol 3ml nebule NEB SCH ×6 (03:08→23:47)
[2017-11-18 06:01] LABS: BASOPHILS % (AUTO) 0.3 % (0-1); EOSINOPHILS # (AUTO) 0.2 X10'3 (0-0.9); EOSINOPHILS % (AUTO) 3.4 % (0-6); HEMOGLOBIN 7.1 g/dl (12.0-16.0); LYMPHOCYTES # (AUTO) 1.2 X10'3 (1.1-4.8); LYMPHOCYTES % (AUTO) 26.2 % (21-51); MEAN CORPUSCULAR HEMOGLOBIN 29.9 PG (27.0-31.0); MEAN CORPUSCULAR VOLUME 87.9 FL (78-98); MEAN PLATELET VOLUME 7.6 FL (7.4-10.4); MONOCYTES # (AUTO) 0.4 X10'3 (0-0.9); MONOCYTES % (AUTO) 7.8 % (2-12); NEUTROPHILS # (AUTO) 2.9 X10'3 (1.8-7.7); NEUTROPHILS % (AUTO) 62.3 % (42-75); PLATELET COUNT 187 X10'3 (140-440); RED BLOOD COUNT 2.36 X10'6 (4.20-5.60); RED CELL DISTRIBUTION WIDTH 17.6 % (11.5-14.5); WHITE BLOOD COUNT 4.6 X10'3 (4.5-11.0)
[2017-11-18 06:32] LABS: ALBUMIN 1.9 G/DL (3.4-5.0); ANION GAP 11 (8-16); BLOOD UREA NITROGEN 17 MG/DL (7-18); BUN/CREATININE RATIO 14.7 (6.6-38.0); CHLORIDE 106 MMOL/L (99-107); CREATININE 1.16 MG/DL (0.40-0.90); GLUCOSE 191 MG/DL (70-104); HEMATOCRIT 20.8 % (35.0-45.0); POTASSIUM 3.1 MMOL/L (3.5-5.1); SODIUM 146 MMOL/L (135-145); TOTAL CARBON DIOXIDE 29.4 MMOL/L (24-32); eGFR 45 ML/MIN
[2017-11-18] MEDS: fluticasone furoate 100MCG/puff inhaler IH SCH (07:31)
[2017-11-18] MEDS ORDERED: amLODIPine 5mg tablet PO SCH (08:00)
[2017-11-18] MEDS ORDERED: furosemide 40mg tablet PO SCH (08:00)
[2017-11-18] MEDS ORDERED: potassium Cl 20 mEq SR tablet PO PRN (09:05)
[2017-11-18] MEDS ORDERED: potassium Cl 40MEQ/NS 500ml 500 ML IV PRN ×2 (09:05)
[2017-11-18] MEDS: metFORMIN 500mg tablet PO SCH ×2 (09:19→17:58)
[2017-11-18] MEDS: pantoprazole 40mg Tablet.DR PO SCH ×2 (09:20→19:57)
[2017-11-18] MEDS: potassium chloride 8mEq ER tablet PO SCH (09:20)
[2017-11-18] MEDS: cetirizine 10mg tablet PO SCH (09:21)
[2017-11-18] MEDS: levoTHYROXINE 75mcg tablet PO SCH (09:21)
[2017-11-18] MEDS: cefepime 2g/NS 100ml ADVANTAGE 100 ML IV SCH ×2 (09:21→19:58)
[2017-11-18] MEDS: atorvastatin 10mg tablet PO SCH (09:30)
[2017-11-18] MEDS: hydrALAZINE 20mg/ml inj. IV PRN (11:15)
[2017-11-18] MEDS ORDERED: furosemide 40mg/4ml inj IV ONE (12:00)
[2017-11-18] MEDS: potassium Cl 20 mEq SR tablet PO PRN (13:01)
[2017-11-18 13:17] LABS: CLARITY,URINE CLEAR (Clear); COLOR,URINE YELLOW (Yellow); GLUCOSE, URINE 100 mg/dl (Neg); KETONES,URINE NEGATIVE (Neg); LEUKOCYTE ESTERASE ,URINE SMALL (Neg); NITRITES, URINE NEGATIVE (Neg); OCCULT BLOOD,URINE NEGATIVE (Neg); PH,URINE 5.5 (4.8-8.0); PROTEIN,URINE NEGATIVE (Neg); UROBILINOGEN,URINE 0.2 E.U/dL (0.2-1.0)
[2017-11-18 13:22] LABS: UA COLLECTION TYPE URINAL
[2017-11-18 13:23] LABS: BACTERIA,URINE NONE SEEN /HPF (Neg); MUCUS STRANDS NONE SEEN /LPF (Neg); RBC,URINE NONE SEEN /HPF (0-2); SQUAMOUS EPITHELIAL CELL,UR FEW /LPF (FEW)
[2017-11-18] MEDS: acetaminophen 325mg tablet PO PRN ×2 (14:33→23:58)
[2017-11-18] MEDS: lactobacillus rhamnosus 10,000 MMU CELLS/CAPSULE PO SCH (17:59)
[2017-11-18] MEDS: pregabalin 25mg capsule PO SCH (19:58)
[2017-11-18] MEDS: HYDROcodone/acetaminophen 5mg/325mg tablet PO PRN (19:58)
[2017-11-19 03:00] VITALS: BP 156/48
[2017-11-19] MEDS: ipratropium/albuterol 3ml nebule NEB SCH ×7 (03:51→23:17)
[2017-11-19 05:28] LABS: BASOPHILS % (AUTO) 0.2 % (0-1); EOSINOPHILS # (AUTO) 0.1 X10'3 (0-0.9); EOSINOPHILS % (AUTO) 2.7 % (0-6); HEMATOCRIT 24.8 % (35.0-45.0); HEMOGLOBIN 8.4 g/dl (12.0-16.0); LYMPHOCYTES # (AUTO) 1.8 X10'3 (1.1-4.8); LYMPHOCYTES % (AUTO) 34.4 % (21-51); MEAN CORPUSCULAR HEMOGLOBIN 29.4 PG (27.0-31.0); MEAN CORPUSCULAR HGB CONC 33.9 % (33.0-36.5); MEAN CORPUSCULAR VOLUME 86.9 FL (78-98); MEAN PLATELET VOLUME 7.9 FL (7.4-10.4); MONOCYTES # (AUTO) 0.4 X10'3 (0-0.9); MONOCYTES % (AUTO) 7.5 % (2-12); NEUTROPHILS # (AUTO) 2.8 X10'3 (1.8-7.7); NEUTROPHILS % (AUTO) 55.2 % (42-75); PLATELET COUNT 205 X10'3 (140-440); RED BLOOD COUNT 2.86 X10'6 (4.20-5.60); RED CELL DISTRIBUTION WIDTH 16.9 % (11.5-14.5); WHITE BLOOD COUNT 5.1 X10'3 (4.5-11.0)
[2017-11-19 06:00] VITALS: BP 158/59
[2017-11-19 06:14] LABS: ANION GAP 9 (8-16); BLOOD UREA NITROGEN 15 MG/DL (7-18); BUN/CREATININE RATIO 10.9 (6.6-38.0); CALCIUM 7.9 MG/DL (8.5-10.1); CHLORIDE 105 MMOL/L (99-107); CREATININE 1.38 MG/DL (0.40-0.90); GLUCOSE 187 MG/DL (70-104); MAGNESIUM 1.1 MG/DL (1.5-2.4); POTASSIUM 3.3 MMOL/L (3.5-5.1); SODIUM 145 MMOL/L (135-145); TOTAL CARBON DIOXIDE 30.6 MMOL/L (24-32); eGFR 37 ML/MIN
[2017-11-19] MEDS: fluticasone furoate 100MCG/puff inhaler IH SCH (07:17)
[2017-11-19] MEDS: potassium chloride 8mEq ER tablet PO SCH (07:19)
[2017-11-19] MEDS: metFORMIN 500mg tablet PO SCH ×2 (07:19→17:17)
[2017-11-19] MEDS: levoTHYROXINE 75mcg tablet PO SCH (07:19)
[2017-11-19] MEDS: pantoprazole 40mg Tablet.DR PO SCH ×2 (07:19→21:10)
[2017-11-19] MEDS: lactobacillus rhamnosus 10,000 MMU CELLS/CAPSULE PO SCH ×2 (07:19→17:17)
[2017-11-19] MEDS: amLODIPine 5mg tablet PO SCH (07:19)
[2017-11-19] MEDS: cefepime 2g/NS 100ml ADVANTAGE 100 ML IV SCH ×2 (07:19→21:10)
[2017-11-19] MEDS: pregabalin 25mg capsule PO SCH ×2 (07:19→21:09)
[2017-11-19] MEDS: furosemide 20MG tablet PO SCH (07:19)
[2017-11-19] MEDS: cetirizine 10mg tablet PO SCH (07:19)
[2017-11-19] MEDS: atorvastatin 10mg tablet PO SCH (07:19)
[2017-11-19] MEDS: potassium Cl 20 mEq SR tablet PO PRN ×3 (07:28→21:24)
[2017-11-19 11:00] VITALS: BP 164/89
[2017-11-19] MEDS ORDERED: magnesium 4gm in 100ml NS 100 ML IV PRN (14:15)
[2017-11-19] MEDS ORDERED: magnesium 2GM in 50ml NS 50 ML IV PRN (14:15)
[2017-11-19] MEDS: magnesium Cl slow-release 64mg tablet PO PRN ×2 (14:44→22:30)
[2017-11-19] MEDS: HYDROcodone/acetaminophen 5mg/325mg tablet PO PRN ×2 (14:51→22:47)
[2017-11-19 15:00] VITALS: BP 153/48
[2017-11-19 18:30] VITALS: BP 153/56
[2017-11-19 22:00] VITALS: BP 185/57
[2017-11-19] MEDS: hydrALAZINE 20mg/ml inj. IV PRN (23:57)
[2017-11-20] VITALS (7 sets, daily range): BP systolic 100–168; BP diastolic 37–56
[2017-11-20] MEDS: HYDROcodone/acetaminophen 5mg/325mg tablet PO PRN ×3 (02:32→21:24)
[2017-11-20] MEDS: ipratropium/albuterol 3ml nebule NEB SCH ×6 (03:13→23:47)
[2017-11-20] MEDS: fluticasone furoate 100MCG/puff inhaler IH SCH (07:07)
[2017-11-20 07:20] LABS: BASOPHILS % (AUTO) 0.3 % (0-1); EOSINOPHILS # (AUTO) 0.2 X10'3 (0-0.9); EOSINOPHILS % (AUTO) 3.3 % (0-6); HEMATOCRIT 25.6 % (35.0-45.0); HEMOGLOBIN 8.5 g/dl (12.0-16.0); LYMPHOCYTES # (AUTO) 1.6 X10'3 (1.1-4.8); LYMPHOCYTES % (AUTO) 29.4 % (21-51); MEAN CORPUSCULAR HEMOGLOBIN 29.3 PG (27.0-31.0); MEAN CORPUSCULAR HGB CONC 33.3 % (33.0-36.5); MEAN PLATELET VOLUME 7.3 FL (7.4-10.4); MONOCYTES # (AUTO) 0.5 X10'3 (0-0.9); NEUTROPHILS # (AUTO) 3.1 X10'3 (1.8-7.7); PLATELET COUNT 226 X10'3 (140-440); RED CELL DISTRIBUTION WIDTH 16.8 % (11.5-14.5); WHITE BLOOD COUNT 5.5 X10'3 (4.5-11.0)
[2017-11-20 07:33] LABS: ANION GAP 8 (8-16); BLOOD UREA NITROGEN 15 MG/DL (7-18); BUN/CREATININE RATIO 11.9 (6.6-38.0); CALCIUM 8.4 MG/DL (8.5-10.1); CHLORIDE 105 MMOL/L (99-107); CREATININE 1.26 MG/DL (0.40-0.90); GLUCOSE 168 MG/DL (70-104); MAGNESIUM 1.3 MG/DL (1.5-2.4); SODIUM 144 MMOL/L (135-145); eGFR 41 ML/MIN
[2017-11-20] MEDS: pregabalin 25mg capsule PO SCH ×2 (07:44→20:23)
[2017-11-20] MEDS: atorvastatin 10mg tablet PO SCH (07:44)
[2017-11-20] MEDS: furosemide 20MG tablet PO SCH (07:44)
[2017-11-20] MEDS: lactobacillus rhamnosus 10,000 MMU CELLS/CAPSULE PO SCH ×2 (07:44→17:29)
[2017-11-20] MEDS: potassium chloride 8mEq ER tablet PO SCH (07:44)
[2017-11-20] MEDS: pantoprazole 40mg Tablet.DR PO SCH ×2 (07:45→20:23)
[2017-11-20] MEDS: amLODIPine 5mg tablet PO SCH (07:45)
[2017-11-20] MEDS: levoTHYROXINE 75mcg tablet PO SCH (07:45)
[2017-11-20] MEDS: cetirizine 10mg tablet PO SCH (07:45)
[2017-11-20] MEDS: metFORMIN 500mg tablet PO SCH ×2 (07:45→17:29)
[2017-11-20] MEDS: cefepime 2g/NS 100ml ADVANTAGE 100 ML IV SCH ×2 (08:01→20:23)
[2017-11-20] MEDS: magnesium Cl slow-release 64mg tablet PO PRN ×2 (08:58→20:23)
[2017-11-21 03:00] VITALS: BP 106/51
[2017-11-21] MEDS: ipratropium/albuterol 3ml nebule NEB SCH ×4 (03:00→14:18)
[2017-11-21 06:00] VITALS: BP 132/38
[2017-11-21] MEDS: levoTHYROXINE 75mcg tablet PO SCH (07:15)
[2017-11-21] MEDS: lactobacillus rhamnosus 10,000 MMU CELLS/CAPSULE PO SCH ×2 (07:15→17:29)
[2017-11-21] MEDS: amLODIPine 5mg tablet PO SCH (07:30)
[2017-11-21] MEDS: metFORMIN 500mg tablet PO SCH ×2 (07:30→17:29)
[2017-11-21] MEDS: potassium chloride 8mEq ER tablet PO SCH (07:30)
[2017-11-21] MEDS: pantoprazole 40mg Tablet.DR PO SCH (07:30)
[2017-11-21] MEDS: atorvastatin 10mg tablet PO SCH (07:30)
[2017-11-21] MEDS: furosemide 20MG tablet PO SCH (07:30)
[2017-11-21] MEDS: cetirizine 10mg tablet PO SCH (07:30)
[2017-11-21] MEDS: pregabalin 25mg capsule PO SCH (07:30)
[2017-11-21] MEDS: cefepime 2g/NS 100ml ADVANTAGE 100 ML IV SCH (07:33)
[2017-11-21] MEDS: fluticasone furoate 100MCG/puff inhaler IH SCH (08:04)
[2017-11-21 11:00] VITALS: BP 156/52
[2017-11-21] MEDS ORDERED: AMOX-422 PO (11:25)
[2017-11-21 14:06] LABS: BASOPHILS % (AUTO) 0.4 % (0-1); EOSINOPHILS # (AUTO) 0.1 X10'3 (0-0.9); HEMATOCRIT 28.2 % (35.0-45.0); HEMOGLOBIN 9.1 g/dl (12.0-16.0); LYMPHOCYTES # (AUTO) 1.9 X10'3 (1.1-4.8); LYMPHOCYTES % (AUTO) 31.8 % (21-51); MEAN CORPUSCULAR HEMOGLOBIN 28.9 PG (27.0-31.0); MEAN CORPUSCULAR HGB CONC 32.4 % (33.0-36.5); MEAN CORPUSCULAR VOLUME 89.2 FL (78-98); MEAN PLATELET VOLUME 7.7 FL (7.4-10.4); MONOCYTES # (AUTO) 0.4 X10'3 (0-0.9); NEUTROPHILS # (AUTO) 3.5 X10'3 (1.8-7.7); NEUTROPHILS % (AUTO) 58.8 % (42-75); PLATELET COUNT 257 X10'3 (140-440); RED BLOOD COUNT 3.16 X10'6 (4.20-5.60); WHITE BLOOD COUNT 5.9 X10'3 (4.5-11.0)
[2017-11-21 14:13] LABS: ALBUMIN 2.1 G/DL (3.4-5.0); ANION GAP 7 (8-16); BLOOD UREA NITROGEN 17 MG/DL (7-18); BUN/CREATININE RATIO 12.4 (6.6-38.0); CALCIUM 8.6 MG/DL (8.5-10.1); CHLORIDE 103 MMOL/L (99-107); CREATININE 1.37 MG/DL (0.40-0.90); GLUCOSE 168 MG/DL (70-104); MAGNESIUM 1.4 MG/DL (1.5-2.4); POTASSIUM 4.1 MMOL/L (3.5-5.1); SODIUM 142 MMOL/L (135-145); TOTAL CARBON DIOXIDE 31.6 MMOL/L (24-32); eGFR 37 ML/MIN
[2017-11-21] MEDS: HYDROcodone/acetaminophen 5mg/325mg tablet PO PRN (14:51)
[2017-11-21 15:00] VITALS: BP 154/40
[2017-11-21] MEDS: magnesium Cl slow-release 64mg tablet PO PRN (15:02)
== END 2017-11-21 17:58 | disposition home health service (06) | DRG 291 ==
LOC: ER 10:09 → ED HOLD 13:11 → PCU 3S 16:12 → CMPBEDREQ 11-20 19:28
PROVIDERS: ADMIT Family Medicine; ATTEND Family Medicine
PROC: 30233N1 Transfusion of Nonautologous Red Blood Cells into Peripheral Vein, Percutaneous Approach (ICD-10-PCS; principal; 2017-11-18)
DX: I11.0 Hypertensive heart disease with heart failure (principal); J18.9 Pneumonia, unspecified organism; J96.21 Acute and chronic respiratory failure with hypoxia; K92.2 Gastrointestinal hemorrhage, unspecified; J44.0 Chronic obstructive pulmonary disease with (acute) lower respiratory infection; I48.91 Unspecified atrial fibrillation; E83.42 Hypomagnesemia; I50.9 Heart failure, unspecified; I25.10 Atherosclerotic heart disease of native coronary artery without angina pectoris; E87.6 Hypokalemia; E03.9 Hypothyroidism, unspecified; F32.9 Major depressive disorder, single episode, unspecified; F41.9 Anxiety disorder, unspecified; G89.29 Other chronic pain; M54.9 Dorsalgia, unspecified; Z90.710 Acquired absence of both cervix and uterus; Z88.5 Allergy status to narcotic agent; Z88.8 Allergy status to other drugs, medicaments and biological substances; Z79.84 Long term (current) use of oral hypoglycemic drugs; Z79.899 Other long term (current) drug therapy
CPT/HCPCS: 36415; 71045; 80048; 80053; 81001; 83605; 83735; 83880; 84145; 84484; 85025; 85379; 85610; 86885; 86900; 86901; 86920; 87040; 87070; 87088; 87502; 87503; 93005; 94640; 94760; 97110; 97116; 97162; 99285; J0360; J0456; J0692; J1940; J3475; J7030; P9016

== ENCOUNTER 2018-01-08 11:39 | Inpatient (IN) | payer MEDICARE, OTHER ==
[~2018-01-08] VITALS: Ht 152.4 cm; Wt 109.0 kg
[~2018-01-08 11:39] MED LIST changes: +AMLO5TAB PO; -ATOR10TA PO; +ATOR10TA70 PO; -Amlodipine Besylate PO; +NITR0.4T SL; -NITR0.4T51 SL; +PANT-47 PO; -PANT40TA4 PO; -VALS80TA26 PO; +VALS80TA31 PO
[2018-01-08] MEDS ORDERED: furosemide 10 MG/1 ML 10ml inj IV ONE (11:55)
[2018-01-08 12:10] LABS: BASOPHILS % (AUTO) 0.3 % (0-1); EOSINOPHILS # (AUTO) 0.1 X10'3 (0-0.9); EOSINOPHILS % (AUTO) 1.1 % (0-6); HEMATOCRIT 26.2 % (35.0-45.0); HEMOGLOBIN 8.5 g/dl (12.0-16.0); LYMPHOCYTES # (AUTO) 2.9 X10'3 (1.1-4.8); MEAN CORPUSCULAR HGB CONC 32.4 % (33.0-36.5); MEAN CORPUSCULAR VOLUME 83.4 FL (78-98); MEAN PLATELET VOLUME 7.4 FL (7.4-10.4); MONOCYTES # (AUTO) 0.6 X10'3 (0-0.9); MONOCYTES % (AUTO) 7.1 % (2-12); NEUTROPHILS # (AUTO) 5.2 X10'3 (1.8-7.7); NEUTROPHILS % (AUTO) 58.5 % (42-75); PLATELET COUNT 278 X10'3 (140-440); RED BLOOD COUNT 3.15 X10'6 (4.20-5.60); RED CELL DISTRIBUTION WIDTH 18.7 % (11.5-14.5); WHITE BLOOD COUNT 8.8 X10'3 (4.5-11.0)
[2018-01-08 12:19] LABS: PROTHROMBIN TIME 10.2 SECONDS (9.0-12.0)
[2018-01-08 12:32] LABS: ALANINE AMINOTRANSFERASE 24 U/L (12-78); ALBUMIN 3.2 G/DL (3.4-5.0); ALBUMIN/GLOBULIN RATIO 0.8 (1.1-1.5); ALKALINE PHOSPHATASE 54 IU/L (46-116); ANION GAP 11 (8-16); ASPARTATE AMINO TRANSFERASE 23 U/L (10-37); BILIRUBIN,TOTAL 0.2 MG/DL (0.1-1.0); BLOOD UREA NITROGEN 26 MG/DL (7-18); BUN/CREATININE RATIO 13.8 (6.6-38.0); CALCIUM 9.5 MG/DL (8.5-10.1); CHLORIDE 102 MMOL/L (99-107); CREATININE 1.88 MG/DL (0.40-0.90); GLUCOSE 208 MG/DL (70-104); POTASSIUM 4.3 MMOL/L (3.5-5.1); SODIUM 139 MMOL/L (135-145); TOTAL CARBON DIOXIDE 25.9 MMOL/L (24-32); TOTAL PROTEIN 7.4 G/DL (6.4-8.2); eGFR 26 ML/MIN
[2018-01-08] MEDS ORDERED: ipratropium/albuterol 3ml nebule NEB ONE (13:10)
[2018-01-08] MEDS ORDERED: ondansetron/PF 4mg/2ml inj IV PRN (14:30)
[2018-01-08] MEDS ORDERED: mag hydrox/Alum hydrox/simeth 30ml oral suspension PO PRN (14:30)
[2018-01-08] MEDS ORDERED: potassium Cl 20 mEq SR tablet PO PRN ×2 (14:30)
[2018-01-08] MEDS ORDERED: MESSAGE TO PHARMACY PO ONE (14:30)
[2018-01-08] MEDS ORDERED: magnesium 4gm in 100ml NS 100 ML IV PRN (14:30)
[2018-01-08] MEDS ORDERED: acetaminophen 325mg tablet PO PRN (14:30)
[2018-01-08] MEDS ORDERED: magnesium hydroxide 30ml (MOM) UD suspension PO PRN (14:30)
[2018-01-08] MEDS ORDERED: dextrose ORAL solution 15 GM/59 ML bottle PO PRN ×2 (14:30)
[2018-01-08] MEDS ORDERED: magnesium Cl slow-release 64mg tablet PO PRN (14:30)
[2018-01-08] MEDS ORDERED: HYDROcodone/acetaminophen 5mg/325mg tablet PO PRN (14:30)
[2018-01-08] MEDS ORDERED: methylPREDNISolone sod succ 125mg/2ml vial IV ONE (14:30)
[2018-01-08] MEDS ORDERED: dextrose 50%-water 50ml dispensing syringe IV PRN ×2 (14:30)
[2018-01-08] MEDS ORDERED: ipratropium/albuterol 3ml nebule NEB PRN (14:30)
[2018-01-08] MEDS ORDERED: magnesium 2GM in 50ml NS 50 ML IV PRN (14:30)
[2018-01-08] MEDS ORDERED: glucagon, human recombinant 1mg kit SUBCUT PRN (14:30)
[2018-01-08] MEDS ORDERED: potassium Cl 40MEQ/NS 500ml 500 ML IV PRN ×2 (14:30)
[2018-01-08 14:54] LABS: CLARITY,URINE SLIGHTLY CLOUDY (Clear); COLOR,URINE STRAW (Yellow); GLUCOSE, URINE NEGATIVE (Neg); KETONES,URINE NEGATIVE (Neg); LEUKOCYTE ESTERASE ,URINE SMALL (Neg); NITRITES, URINE NEGATIVE (Neg); OCCULT BLOOD,URINE NEGATIVE (Neg); PROTEIN,URINE NEGATIVE (Neg); UROBILINOGEN,URINE 0.2 E.U/dL (0.2-1.0)
[2018-01-08 14:58] LABS: UA COLLECTION TYPE CLN CATCH MIDSTREAM
[2018-01-08 15:10] LABS: MUCUS STRANDS NONE SEEN /LPF (Neg); SQUAMOUS EPITHELIAL CELL,UR FEW /LPF (FEW); TRANSITIONAL EPI CELLS,URINE FEW /HPF
[2018-01-08 15:11] LABS: BACTERIA,URINE NONE SEEN /HPF (Neg); RBC,URINE NONE SEEN /HPF (0-2); WBC,URINE 30-50 /HPF (0-4); YEAST FEW /HPF (NEGATIVE)
[2018-01-08 15:12] LABS: WBC CLUMPS,URINE FEW /HPF (NEGATIVE)
[2018-01-08 15:53] LABS: HEMOGLOBIN A1C 7.3 % (4.5-6.2)
[2018-01-08 17:51] LABS: RETICULOCYTE % (AUTO) 2.4 % (0.5-1.5)
[2018-01-08 17:52] LABS: ABSOLUTE RETICS # 75600 /CUMM (23000-93000)
[2018-01-08 20:00] VITALS: BP 99/51
[2018-01-08] MEDS: pregabalin 25mg capsule PO SCH (21:00)
[2018-01-08] MEDS: pantoprazole 40mg Tablet.DR PO SCH (21:00)
[2018-01-08] MEDS: HYDROcodone/acetaminophen 10/325mg tab PO PRN (21:08)
[2018-01-08] MEDS: methylPREDNISolone sod succ/PF 40mg inj. IV SCH (21:13)
[2018-01-08] MEDS: insulin glargine (Lantus) pen - multi-dose SQ SCH (21:20)
[2018-01-09] VITALS: BP 108/43
[2018-01-09] MEDS: HYDROcodone/acetaminophen 10/325mg tab PO PRN ×2 (02:00→20:11)
[2018-01-09] MEDS: methylPREDNISolone sod succ/PF 40mg inj. IV SCH ×3 (02:02→15:30)
[2018-01-09 05:35] LABS: BASOPHILS % (AUTO) 0.1 % (0-1); EOSINOPHILS % (AUTO) 0 % (0-6); HEMATOCRIT 25.7 % (35.0-45.0); HEMOGLOBIN 8.4 g/dl (12.0-16.0); LYMPHOCYTES % (AUTO) 14.1 % (21-51); MEAN CORPUSCULAR HGB CONC 32.5 % (33.0-36.5); MEAN CORPUSCULAR VOLUME 83.2 FL (78-98); MEAN PLATELET VOLUME 8.2 FL (7.4-10.4); MONOCYTES % (AUTO) 0.4 % (2-12); NEUTROPHILS # (AUTO) 5.8 X10'3 (1.8-7.7); NEUTROPHILS % (AUTO) 85.4 % (42-75); PLATELET COUNT 261 X10'3 (140-440); RED BLOOD COUNT 3.09 X10'6 (4.20-5.60); RED CELL DISTRIBUTION WIDTH 18.8 % (11.5-14.5); WHITE BLOOD COUNT 6.8 X10'3 (4.5-11.0)
[2018-01-09 05:54] LABS: ALANINE AMINOTRANSFERASE 22 U/L (12-78); ALBUMIN 3.1 G/DL (3.4-5.0); ALBUMIN/GLOBULIN RATIO 0.8 (1.1-1.5); ALKALINE PHOSPHATASE 49 IU/L (46-116); ANION GAP 9 (8-16); ASPARTATE AMINO TRANSFERASE 18 U/L (10-37); BILIRUBIN,TOTAL 0.2 MG/DL (0.1-1.0); BLOOD UREA NITROGEN 33 MG/DL (7-18); CALCIUM 9.6 MG/DL (8.5-10.1); CHLORIDE 101 MMOL/L (99-107); CHOL/HDL RATIO 1.9 (0.00-4.99); CHOLESTEROL 115 MG/DL (0-200); CREATININE 1.94 MG/DL (0.40-0.90); GLUCOSE 201 MG/DL (70-104); HDL CHOLESTEROL 59 MG/DL (35-60); LDL CHOLESTEROL 41 MG/DL (50-100); MAGNESIUM 1.6 MG/DL (1.5-2.4); POTASSIUM 5.2 MMOL/L (3.5-5.1); SODIUM 138 MMOL/L (135-145); TOTAL CARBON DIOXIDE 27.8 MMOL/L (24-32); TOTAL PROTEIN 7.1 G/DL (6.4-8.2); TRIGLYCERIDES 40 MG/DL (20-135); eGFR 25 ML/MIN
[2018-01-09] MEDS: K and/or MAG REPLACEMENT MC SCH (08:00)
[2018-01-09] MEDS: insulin Lispro (HumaLOG) vial - multi-dose SQ SCH ×3 (09:21→19:26)
[2018-01-09] MEDS: furosemide 20MG tablet PO SCH (09:25)
[2018-01-09] MEDS: levoTHYROXINE 75mcg tablet PO SCH (09:25)
[2018-01-09] MEDS: pregabalin 25mg capsule PO SCH ×2 (09:25→20:10)
[2018-01-09] MEDS: atorvastatin 10mg tablet PO SCH (09:25)
[2018-01-09] MEDS: potassium chloride 8mEq ER tablet PO SCH (09:26)
[2018-01-09] MEDS: loratadine 10mg tablet PO SCH (09:26)
[2018-01-09] MEDS: montelukast 10mg tablet PO SCH (09:26)
[2018-01-09] MEDS: pantoprazole 40mg Tablet.DR PO SCH ×2 (09:27→20:10)
[2018-01-09] MEDS: fluticasone nasal spray 16GM bottle NS SCH (09:27)
[2018-01-09 11:16] VITALS: BP 124/68
[2018-01-09 20:00] VITALS: BP 121/69
[2018-01-09] MEDS: insulin glargine (Lantus) pen - multi-dose SQ SCH (21:27)
[2018-01-10] VITALS: BP 129/58
[2018-01-10 06:19] LABS: BASOPHILS % (AUTO) 0.2 % (0-1); EOSINOPHILS # (AUTO) 0.1 X10'3 (0-0.9); EOSINOPHILS % (AUTO) 0.8 % (0-6); HEMATOCRIT 25.4 % (35.0-45.0); HEMOGLOBIN 8.3 g/dl (12.0-16.0); LYMPHOCYTES % (AUTO) 19.6 % (21-51); MEAN CORPUSCULAR HEMOGLOBIN 27.1 PG (27.0-31.0); MEAN CORPUSCULAR HGB CONC 32.5 % (33.0-36.5); MEAN CORPUSCULAR VOLUME 83.3 FL (78-98); MEAN PLATELET VOLUME 8.1 FL (7.4-10.4); MONOCYTES # (AUTO) 0.6 X10'3 (0-0.9); MONOCYTES % (AUTO) 5.6 % (2-12); NEUTROPHILS # (AUTO) 7.5 X10'3 (1.8-7.7); NEUTROPHILS % (AUTO) 73.8 % (42-75); PLATELET COUNT 287 X10'3 (140-440); RED BLOOD COUNT 3.04 X10'6 (4.20-5.60); RED CELL DISTRIBUTION WIDTH 18.5 % (11.5-14.5); WHITE BLOOD COUNT 10.2 X10'3 (4.5-11.0)
[2018-01-10 06:37] LABS: ALANINE AMINOTRANSFERASE 28 U/L (12-78); ALBUMIN/GLOBULIN RATIO 0.8 (1.1-1.5); ALKALINE PHOSPHATASE 46 IU/L (46-116); ANION GAP 7 (8-16); ASPARTATE AMINO TRANSFERASE 25 U/L (10-37); BILIRUBIN,TOTAL 0.2 MG/DL (0.1-1.0); BLOOD UREA NITROGEN 40 MG/DL (7-18); BUN/CREATININE RATIO 22.7 (6.6-38.0); CALCIUM 9.1 MG/DL (8.5-10.1); CHLORIDE 103 MMOL/L (99-107); CREATININE 1.76 MG/DL (0.40-0.90); GLUCOSE 148 MG/DL (70-104); MAGNESIUM 1.8 MG/DL (1.5-2.4); POTASSIUM 4.8 MMOL/L (3.5-5.1); SODIUM 139 MMOL/L (135-145); TOTAL CARBON DIOXIDE 29.5 MMOL/L (24-32); TOTAL PROTEIN 6.8 G/DL (6.4-8.2); eGFR 28 ML/MIN
[2018-01-10 07:13] VITALS: BP 119/43
[2018-01-10] MEDS: pregabalin 25mg capsule PO SCH ×2 (07:36→19:50)
[2018-01-10] MEDS: potassium chloride 8mEq ER tablet PO SCH (07:36)
[2018-01-10] MEDS: furosemide 20MG tablet PO SCH (07:36)
[2018-01-10] MEDS: levoTHYROXINE 75mcg tablet PO SCH (07:36)
[2018-01-10] MEDS: loratadine 10mg tablet PO SCH (07:36)
[2018-01-10] MEDS: predniSONE 20 mg tablet PO SCH (07:36)
[2018-01-10] MEDS: atorvastatin 10mg tablet PO SCH (07:36)
[2018-01-10] MEDS: fluticasone nasal spray 16GM bottle NS SCH (07:36)
[2018-01-10] MEDS: montelukast 10mg tablet PO SCH (07:37)
[2018-01-10] MEDS: pantoprazole 40mg Tablet.DR PO SCH ×2 (07:37→19:51)
[2018-01-10] MEDS: K and/or MAG REPLACEMENT MC SCH (07:37)
[2018-01-10 11:00] VITALS: BP 129/57
[2018-01-10] MEDS: insulin Lispro (HumaLOG) vial - multi-dose SQ SCH ×2 (13:40→18:57)
[2018-01-10 19:25] VITALS: BP 148/58
[2018-01-10] MEDS: HYDROcodone/acetaminophen 10/325mg tab PO PRN (19:51)
[2018-01-10] MEDS: insulin glargine (Lantus) pen - multi-dose SQ SCH (21:04)
[2018-01-10 23:50] VITALS: BP 126/53
[2018-01-11] MEDS: HYDROcodone/acetaminophen 10/325mg tab PO PRN (00:37)
[2018-01-11 05:42] LABS: BASOPHILS # (AUTO) 0.1 X10'3 (0-0.2); BASOPHILS % (AUTO) 0.8 % (0-1); EOSINOPHILS % (AUTO) 0.5 % (0-6); HEMATOCRIT 26.5 % (35.0-45.0); HEMOGLOBIN 8.7 g/dl (12.0-16.0); LYMPHOCYTES # (AUTO) 3.4 X10'3 (1.1-4.8); LYMPHOCYTES % (AUTO) 36.5 % (21-51); MEAN CORPUSCULAR HEMOGLOBIN 27.4 PG (27.0-31.0); MEAN CORPUSCULAR HGB CONC 32.9 % (33.0-36.5); MEAN CORPUSCULAR VOLUME 83.3 FL (78-98); MEAN PLATELET VOLUME 8.2 FL (7.4-10.4); MONOCYTES # (AUTO) 0.8 X10'3 (0-0.9); MONOCYTES % (AUTO) 8.7 % (2-12); NEUTROPHILS % (AUTO) 53.5 % (42-75); PLATELET COUNT 297 X10'3 (140-440); RED BLOOD COUNT 3.19 X10'6 (4.20-5.60); RED CELL DISTRIBUTION WIDTH 18.6 % (11.5-14.5); WHITE BLOOD COUNT 9.3 X10'3 (4.5-11.0)
[2018-01-11 06:12] LABS: ALANINE AMINOTRANSFERASE 28 U/L (12-78); ALBUMIN/GLOBULIN RATIO 0.8 (1.1-1.5); ALKALINE PHOSPHATASE 47 IU/L (46-116); ANION GAP 6 (8-16); ASPARTATE AMINO TRANSFERASE 25 U/L (10-37); BILIRUBIN,TOTAL 0.2 MG/DL (0.1-1.0); BLOOD UREA NITROGEN 42 MG/DL (7-18); BUN/CREATININE RATIO 28.6 (6.6-38.0); CALCIUM 9.1 MG/DL (8.5-10.1); CHLORIDE 105 MMOL/L (99-107); CREATININE 1.47 MG/DL (0.40-0.90); GLUCOSE 108 MG/DL (70-104); POTASSIUM 4.2 MMOL/L (3.5-5.1); SODIUM 142 MMOL/L (135-145); TOTAL PROTEIN 6.8 G/DL (6.4-8.2); eGFR 34 ML/MIN
[2018-01-11] MEDS: atorvastatin 10mg tablet PO SCH (07:24)
[2018-01-11] MEDS: pantoprazole 40mg Tablet.DR PO SCH (07:24)
[2018-01-11] MEDS: furosemide 20MG tablet PO SCH (07:24)
[2018-01-11] MEDS: predniSONE 20 mg tablet PO SCH (07:25)
[2018-01-11] MEDS: potassium chloride 8mEq ER tablet PO SCH (07:25)
[2018-01-11] MEDS: levoTHYROXINE 75mcg tablet PO SCH (07:25)
[2018-01-11] MEDS: loratadine 10mg tablet PO SCH (07:25)
[2018-01-11] MEDS: pregabalin 25mg capsule PO SCH (07:26)
[2018-01-11] MEDS: montelukast 10mg tablet PO SCH (07:26)
[2018-01-11] MEDS: fluticasone nasal spray 16GM bottle NS SCH (07:29)
[2018-01-11 07:30] VITALS: BP 151/66
[2018-01-11] MEDS: K and/or MAG REPLACEMENT MC SCH (07:30)
[2018-01-11] MEDS: insulin Lispro (HumaLOG) vial - multi-dose SQ SCH ×2 (08:41→13:29)
[2018-01-11 11:00] VITALS: BP 156/60
[2018-01-11] MEDS ORDERED: MONT10TA24 PO (14:45)
[2018-01-11] MEDS ORDERED: IPRA3AMP9 NEB (14:45)
[2018-01-11] MEDS ORDERED: FLUT16SP18 NS (14:45)
[2018-01-11] MEDS ORDERED: PRED10TA23 PO (17:22)
== END 2018-01-11 18:15 | disposition home health service (06) | DRG 191 ==
LOC: ER 11:39 → ED HOLD 14:29 → SUR 3N 18:04
PROVIDERS: ADMIT Legal Medicine; ATTEND Emergency Medicine
DX: J44.1 Chronic obstructive pulmonary disease with (acute) exacerbation (principal); N18.4 Chronic kidney disease, stage 4 (severe); E11.22 Type 2 diabetes mellitus with diabetic chronic kidney disease; I48.91 Unspecified atrial fibrillation; I13.0 Hypertensive heart and chronic kidney disease with heart failure and stage 1 through stage 4 chronic kidney disease, or unspecified chronic kidney disease; I50.32 Chronic diastolic (congestive) heart failure; Z68.42 Body mass index [BMI] 45.0-49.9, adult; Z99.81 Dependence on supplemental oxygen; D64.9 Anemia, unspecified; F32.9 Major depressive disorder, single episode, unspecified; F41.9 Anxiety disorder, unspecified; G89.29 Other chronic pain; M54.9 Dorsalgia, unspecified; Z90.710 Acquired absence of both cervix and uterus; Z88.5 Allergy status to narcotic agent; Z88.8 Allergy status to other drugs, medicaments and biological substances; Z79.84 Long term (current) use of oral hypoglycemic drugs; Z79.899 Other long term (current) drug therapy; Z80.0 Family history of malignant neoplasm of digestive organs
CPT/HCPCS: 36415; 71045; 71250; 80053; 80061; 81001; 82728; 82948; 83036; 83540; 83550; 83735; 83880; 84443; 84484; 85025; 85045; 85610; 86713; 87070; 87088; 87502; 87503; 93005; 94640; 94760; J1815; J1940; J2920; J2930; J7512

== ENCOUNTER 2018-04-28 10:20 | Inpatient (IN) | payer MEDICARE, OTHER ==
[~2018-04-28] VITALS: Ht 165.1 cm; Wt 114.9 kg
[~2018-04-28 10:20] MED LIST changes: +FLUT16SP18 NS; +IPRA3AMP9 NEB; +MONT10TA24 PO
[2018-04-28 10:52] LABS: BASOPHILS % (AUTO) 0.3 % (0-1); EOSINOPHILS % (AUTO) 0.4 % (0-6); HEMATOCRIT 31.7 % (35.0-45.0); HEMOGLOBIN 10.2 g/dl (12.0-16.0); LYMPHOCYTES # (AUTO) 1.3 X10'3 (1.1-4.8); MEAN CORPUSCULAR HEMOGLOBIN 27.1 PG (27.0-31.0); MEAN CORPUSCULAR HGB CONC 32.1 % (33.0-36.5); MEAN CORPUSCULAR VOLUME 84.5 FL (78-98); MEAN PLATELET VOLUME 8.1 FL (7.4-10.4); MONOCYTES # (AUTO) 0.5 X10'3 (0-0.9); MONOCYTES % (AUTO) 5.1 % (2-12); NEUTROPHILS # (AUTO) 8.6 X10'3 (1.8-7.7); NEUTROPHILS % (AUTO) 82.2 % (42-75); PLATELET COUNT 227 X10'3 (140-440); RED BLOOD COUNT 3.76 X10'6 (4.20-5.60); RED CELL DISTRIBUTION WIDTH 17.3 % (11.5-14.5); WHITE BLOOD COUNT 10.5 X10'3 (4.5-11.0)
[2018-04-28 11:02] LABS: INR 1.1 INR; PARTIAL THROMBOPLASTIN TIME 26 SECONDS (22-32); PROTHROMBIN TIME 11.4 SECONDS (9.0-12.0)
[2018-04-28 11:07] LABS: ALANINE AMINOTRANSFERASE 38 U/L (12-78); ALBUMIN 3.2 G/DL (3.4-5.0); ALBUMIN/GLOBULIN RATIO 0.8 (1.1-1.5); ALKALINE PHOSPHATASE 66 IU/L (46-116); ANION GAP 7 (8-16); ASPARTATE AMINO TRANSFERASE 35 U/L (10-37); BILIRUBIN,TOTAL 0.4 MG/DL (0.1-1.0); BLOOD UREA NITROGEN 37 MG/DL (7-18); BUN/CREATININE RATIO 21.1 (6.6-38.0); CALCIUM 8.8 MG/DL (8.5-10.1); CHLORIDE 100 MMOL/L (99-107); CREATININE 1.75 MG/DL (0.40-0.90); GLUCOSE 297 MG/DL (70-104); POTASSIUM 4.4 MMOL/L (3.5-5.1); SODIUM 136 MMOL/L (135-145); TOTAL PROTEIN 7.2 G/DL (6.4-8.2); eGFR 28 ML/MIN
[2018-04-28] MEDS ORDERED: DIPH1TAB PO (11:32)
[2018-04-28] MEDS ORDERED: BUSP15TA12 PO (11:32)
[2018-04-28] MEDS ORDERED: QUET25TA PO (11:32)
[2018-04-28] MEDS ORDERED: GLIP5TAB13 PO (11:32)
[2018-04-28] MEDS ORDERED: VALS40TA2 PO (11:32)
[2018-04-28] MEDS ORDERED: DILT120C51 PO (11:32)
[2018-04-28] MEDS ORDERED: TIOT18CA3 IH (11:32)
[2018-04-28] MEDS ORDERED: PAT0.1OS OP (11:32)
[2018-04-28] MEDS ORDERED: ATOR10TA87 PO (11:32)
[2018-04-28] MEDS ORDERED: BUDE90AE IH (12:01)
[2018-04-28] MEDS ORDERED: FERR325T28 PO (12:01)
[2018-04-28] MEDS ORDERED: POTA8CAP9 PO (12:01)
[2018-04-28] MEDS ORDERED: PREG50CA PO (12:01)
[2018-04-28] MEDS ORDERED: HYDR-569 PO (12:01)
[2018-04-28] MEDS ORDERED: ALB0.5UD IH (12:06)
[2018-04-28] MEDS ORDERED: furosemide 10 MG/1 ML 10ml inj IV ONE (12:55)
[2018-04-28] MEDS ORDERED: magnesium 4gm in 100ml NS 100 ML IV PRN (13:30)
[2018-04-28] MEDS ORDERED: ondansetron/PF 4mg/2ml inj IV PRN (13:30)
[2018-04-28] MEDS ORDERED: acetaminophen 325mg tablet PO PRN ×2 (13:30)
[2018-04-28] MEDS ORDERED: potassium Cl 20 mEq SR tablet PO PRN ×2 (13:30)
[2018-04-28] MEDS ORDERED: magnesium 1gm/100ml D5W IVPB 100 ML IV PRN (13:30)
[2018-04-28] MEDS ORDERED: mag hydrox/Alum hydrox/simeth 30ml oral suspension PO PRN (13:30)
[2018-04-28] MEDS ORDERED: docusate sod 100mg capsule PO PRN (13:30)
[2018-04-28] MEDS ORDERED: potassium Cl 40MEQ/NS 500ml 500 ML IV PRN ×2 (13:30)
[2018-04-28] MEDS: ipratropium/albuterol 3ml nebule NEB PRN ×2 (14:08→19:50)
[2018-04-28 14:47] VITALS: BP 149/81
[2018-04-28 15:00] VITALS: BP 143/60
[2018-04-28 19:00] VITALS: BP 115/91
[2018-04-28] MEDS ORDERED: HYDROcodone/acetaminophen 5mg/325mg tablet PO PRN (19:30)
[2018-04-28] MEDS: BUDESONIDE 0.25 MG/2 ML AMPUL.NEB IH SCH (19:50)
[2018-04-28] MEDS: ipratropium 0.5 MG/2.5ML nebule IH SCH (19:55)
[2018-04-28] MEDS ORDERED: apixaban 2.5mg tablet PO SCH (20:00)
[2018-04-28] MEDS ORDERED: glucagon, human recombinant 1mg kit SUBCUT PRN (20:25)
[2018-04-28] MEDS ORDERED: MESSAGE TO PHARMACY PO ONE (20:25)
[2018-04-28] MEDS ORDERED: dextrose ORAL solution 15 GM/59 ML bottle PO PRN ×2 (20:25)
[2018-04-28] MEDS ORDERED: dextrose 50%-water 50ml dispensing syringe IV PRN ×2 (20:25)
[2018-04-28] MEDS: naphazoline/pheniramine eye 1 DROP BOTTLE EACHEYE SCH (20:30)
[2018-04-28] MEDS: busPIRone 15mg tablet PO SCH (20:34)
[2018-04-28] MEDS: pantoprazole 40mg Tablet.DR PO SCH (20:35)
[2018-04-28] MEDS: QUEtiapine 25mg tablet PO SCH (20:42)
[2018-04-28] MEDS: insulin glargine (Lantus) pen - multi-dose SQ SCH (20:56)
[2018-04-28] MEDS: CefTRIAXone/D5W-Rocephin 1gm 50 ML IV SCH (21:41)
[2018-04-28 23:00] VITALS: BP 151/64
[2018-04-28] MEDS: pregabalin 25mg capsule PO SCH (23:22)
[2018-04-29 01:25] LABS: CLARITY,URINE SLIGHTLY CLOUDY (Clear); COLOR,URINE YELLOW (Yellow); GLUCOSE, URINE NEGATIVE (Neg); KETONES,URINE NEGATIVE (Neg); LEUKOCYTE ESTERASE ,URINE MODERATE (Neg); NITRITES, URINE NEGATIVE (Neg); OCCULT BLOOD,URINE NEGATIVE (Neg); PH,URINE 5.5 (4.8-8.0); PROTEIN,URINE NEGATIVE (Neg); UROBILINOGEN,URINE 0.2 E.U/dL (0.2-1.0)
[2018-04-29 01:31] LABS: UA COLLECTION TYPE CLN CATCH MIDSTREAM
[2018-04-29 01:33] LABS: WBC,URINE 20-30 /HPF (0-4)
[2018-04-29 01:34] LABS: BACTERIA,URINE FEW /HPF (Neg); MUCUS STRANDS FEW /LPF (Neg); RBC,URINE NONE SEEN /HPF (0-2); SQUAMOUS EPITHELIAL CELL,UR FEW /LPF (FEW); WBC CLUMPS,URINE FEW /HPF (NEGATIVE)
[2018-04-29] MEDS: HYDROcodone/acetaminophen 5mg/325mg tablet PO PRN ×2 (01:35→21:28)
[2018-04-29] MEDS: ipratropium 0.5 MG/2.5ML nebule IH SCH ×4 (02:18→20:49)
[2018-04-29 02:58] VITALS: BP 103/66
[2018-04-29 05:21] LABS: BASOPHILS % (AUTO) 0.2 % (0-1); EOSINOPHILS # (AUTO) 0.1 X10'3 (0-0.9); EOSINOPHILS % (AUTO) 1.5 % (0-6); HEMATOCRIT 28.4 % (35.0-45.0); HEMOGLOBIN 9.1 g/dl (12.0-16.0); LYMPHOCYTES # (AUTO) 1.8 X10'3 (1.1-4.8); LYMPHOCYTES % (AUTO) 22.7 % (21-51); MEAN CORPUSCULAR HEMOGLOBIN 27.1 PG (27.0-31.0); MEAN CORPUSCULAR VOLUME 84.8 FL (78-98); MEAN PLATELET VOLUME 8.1 FL (7.4-10.4); MONOCYTES # (AUTO) 0.3 X10'3 (0-0.9); MONOCYTES % (AUTO) 3.4 % (2-12); NEUTROPHILS # (AUTO) 5.6 X10'3 (1.8-7.7); NEUTROPHILS % (AUTO) 72.2 % (42-75); PLATELET COUNT 201 X10'3 (140-440); RED BLOOD COUNT 3.35 X10'6 (4.20-5.60); RED CELL DISTRIBUTION WIDTH 17.6 % (11.5-14.5); WHITE BLOOD COUNT 7.8 X10'3 (4.5-11.0)
[2018-04-29 05:38] LABS: ALANINE AMINOTRANSFERASE 31 U/L (12-78); ALBUMIN 2.8 G/DL (3.4-5.0); ALBUMIN/GLOBULIN RATIO 0.8 (1.1-1.5); ALKALINE PHOSPHATASE 55 IU/L (46-116); ANION GAP 3 (8-16); ASPARTATE AMINO TRANSFERASE 26 U/L (10-37); BILIRUBIN,TOTAL 0.4 MG/DL (0.1-1.0); BLOOD UREA NITROGEN 34 MG/DL (7-18); BUN/CREATININE RATIO 21.5 (6.6-38.0); CALCIUM 8.2 MG/DL (8.5-10.1); CHLORIDE 103 MMOL/L (99-107); CHOLESTEROL 81 MG/DL (0-200); CREATININE 1.58 MG/DL (0.40-0.90); GLUCOSE 122 MG/DL (70-104); HDL CHOLESTEROL 40 MG/DL (35-60); LDL CHOLESTEROL 32 MG/DL (50-100); MAGNESIUM 1.9 MG/DL (1.5-2.4); POTASSIUM 3.8 MMOL/L (3.5-5.1); SODIUM 138 MMOL/L (135-145); TOTAL PROTEIN 6.4 G/DL (6.4-8.2); TRIGLYCERIDES 66 MG/DL (20-135); eGFR 31 ML/MIN
[2018-04-29 06:00] VITALS: BP 143/64
[2018-04-29] MEDS ORDERED: diltiazem CD 120mg capsule (once-daily) PO SCH (08:00)
[2018-04-29] MEDS ORDERED: furosemide 10 MG/1 ML 10ml inj IV SCH (08:00)
[2018-04-29] MEDS: K and/or MAG REPLACEMENT MC SCH (08:00)
[2018-04-29] MEDS ORDERED: carVEDilol 3.125mg tablet PO SCH (08:00)
[2018-04-29] MEDS ORDERED: enoxaparin 40mg/0.4ml syringe SQ SCH (08:00)
[2018-04-29] MEDS: ferrous sulfate 325mg tablet PO SCH (08:22)
[2018-04-29] MEDS: atorvastatin 10mg tablet PO SCH (08:22)
[2018-04-29] MEDS: pregabalin 25mg capsule PO SCH ×2 (08:22→17:03)
[2018-04-29] MEDS: levoTHYROXINE 75mcg tablet PO SCH (08:22)
[2018-04-29] MEDS: pantoprazole 40mg Tablet.DR PO SCH ×2 (08:22→21:03)
[2018-04-29] MEDS: busPIRone 15mg tablet PO SCH ×2 (08:22→21:03)
[2018-04-29] MEDS: furosemide 10 MG/1 ML 10ml inj IV SCH (08:23)
[2018-04-29] MEDS: CefTRIAXone/D5W-Rocephin 1gm 50 ML IV SCH (08:23)
[2018-04-29] MEDS: naphazoline/pheniramine eye 1 DROP BOTTLE EACHEYE SCH ×2 (08:24→21:05)
[2018-04-29] MEDS: BUDESONIDE 0.25 MG/2 ML AMPUL.NEB IH SCH ×2 (08:57→20:49)
[2018-04-29 11:00] VITALS: BP 149/67
[2018-04-29 15:00] VITALS: BP 134/74
[2018-04-29 19:00] VITALS: BP 118/58
[2018-04-29] MEDS: insulin glargine (Lantus) pen - multi-dose SQ SCH (21:00)
[2018-04-29] MEDS: QUEtiapine 25mg tablet PO SCH (21:03)
[2018-04-29] MEDS: carvedilol 6.25mg tablet PO SCH (21:03)
[2018-04-29] MEDS: losartan 50mg tablet PO SCH (21:30)
[2018-04-29 23:00] VITALS: BP 127/65
[2018-04-30] MEDS: pregabalin 25mg capsule PO SCH ×3 (01:37→15:41)
[2018-04-30] MEDS: ipratropium 0.5 MG/2.5ML nebule IH SCH ×4 (02:44→20:49)
[2018-04-30 03:00] VITALS: BP 90/42
[2018-04-30 05:22] LABS: BASOPHILS % (AUTO) 0.2 % (0-1); EOSINOPHILS # (AUTO) 0.1 X10'3 (0-0.9); EOSINOPHILS % (AUTO) 1.8 % (0-6); HEMATOCRIT 29.1 % (35.0-45.0); HEMOGLOBIN 9.3 g/dl (12.0-16.0); LYMPHOCYTES % (AUTO) 27.9 % (21-51); MEAN CORPUSCULAR HEMOGLOBIN 27.2 PG (27.0-31.0); MEAN CORPUSCULAR HGB CONC 32.1 % (33.0-36.5); MEAN PLATELET VOLUME 8.5 FL (7.4-10.4); MONOCYTES # (AUTO) 0.3 X10'3 (0-0.9); MONOCYTES % (AUTO) 3.7 % (2-12); NEUTROPHILS # (AUTO) 4.7 X10'3 (1.8-7.7); NEUTROPHILS % (AUTO) 66.4 % (42-75); PLATELET COUNT 207 X10'3 (140-440); RED BLOOD COUNT 3.42 X10'6 (4.20-5.60); RED CELL DISTRIBUTION WIDTH 17.8 % (11.5-14.5); WHITE BLOOD COUNT 7.1 X10'3 (4.5-11.0)
[2018-04-30 05:30] VITALS: BP 125/56
[2018-04-30 05:44] LABS: ALANINE AMINOTRANSFERASE 28 U/L (12-78); ALBUMIN 2.7 G/DL (3.4-5.0); ALBUMIN/GLOBULIN RATIO 0.8 (1.1-1.5); ALKALINE PHOSPHATASE 55 IU/L (46-116); ANION GAP 2 (8-16); ASPARTATE AMINO TRANSFERASE 22 U/L (10-37); BILIRUBIN,TOTAL 0.4 MG/DL (0.1-1.0); BLOOD UREA NITROGEN 39 MG/DL (7-18); BUN/CREATININE RATIO 21.8 (6.6-38.0); CALCIUM 8.4 MG/DL (8.5-10.1); CHLORIDE 100 MMOL/L (99-107); CREATININE 1.79 MG/DL (0.40-0.90); GLUCOSE 117 MG/DL (70-104); POTASSIUM 4.1 MMOL/L (3.5-5.1); SODIUM 132 MMOL/L (135-145); TOTAL CARBON DIOXIDE 30.2 MMOL/L (24-32); TOTAL PROTEIN 6.2 G/DL (6.4-8.2); eGFR 27 ML/MIN
[2018-04-30] MEDS: levoTHYROXINE 75mcg tablet PO SCH (07:56)
[2018-04-30] MEDS: busPIRone 15mg tablet PO SCH ×2 (07:56→19:18)
[2018-04-30] MEDS: pantoprazole 40mg Tablet.DR PO SCH ×2 (07:56→19:18)
[2018-04-30] MEDS: furosemide 10 MG/1 ML 10ml inj IV SCH (07:56)
[2018-04-30] MEDS: carvedilol 6.25mg tablet PO SCH ×2 (07:56→19:18)
[2018-04-30] MEDS: ferrous sulfate 325mg tablet PO SCH (07:56)
[2018-04-30] MEDS: atorvastatin 10mg tablet PO SCH (07:56)
[2018-04-30] MEDS: CefTRIAXone/D5W-Rocephin 1gm 50 ML IV SCH (07:57)
[2018-04-30] MEDS: naphazoline/pheniramine eye 1 DROP BOTTLE EACHEYE SCH ×2 (07:57→19:20)
[2018-04-30] MEDS: K and/or MAG REPLACEMENT MC SCH (08:00)
[2018-04-30] MEDS ORDERED: potassium Cl 20 mEq SR tablet PO STA (08:11)
[2018-04-30] MEDS ORDERED: furosemide 40mg/4ml inj IV ONE (08:15)
[2018-04-30 11:00] VITALS: BP 100/45
[2018-04-30 15:00] VITALS: BP 149/59
[2018-04-30] MEDS: insulin Lispro (HumaLOG) vial - multi-dose SQ SCH (18:52)
[2018-04-30 19:00] VITALS: BP 131/70
[2018-04-30] MEDS: lactobacillus rhamnosus 10,000 MMU CELLS/CAPSULE PO SCH (19:18)
[2018-04-30] MEDS: BUDESONIDE 0.25 MG/2 ML AMPUL.NEB IH SCH ×2 (20:49→20:50)
[2018-04-30] MEDS: HYDROcodone/acetaminophen 5mg/325mg tablet PO PRN (21:20)
[2018-04-30] MEDS: losartan 50mg tablet PO SCH (21:20)
[2018-04-30] MEDS: insulin glargine (Lantus) pen - multi-dose SQ SCH (21:20)
[2018-04-30] MEDS: QUEtiapine 25mg tablet PO SCH (21:21)
[2018-04-30 23:00] VITALS: BP 117/54
[2018-04-30 23:21] LABS: CLARITY,URINE CLEAR (Clear); COLOR,URINE YELLOW (Yellow); GLUCOSE, URINE NEGATIVE (Neg); KETONES,URINE NEGATIVE (Neg); LEUKOCYTE ESTERASE ,URINE NEGATIVE (Neg); NITRITES, URINE NEGATIVE (Neg); OCCULT BLOOD,URINE NEGATIVE (Neg); PROTEIN,URINE NEGATIVE (Neg); UROBILINOGEN,URINE 0.2 E.U/dL (0.2-1.0)
[2018-04-30 23:22] LABS: UA COLLECTION TYPE STRAIGHT CATH
[2018-05-01] MEDS: pregabalin 25mg capsule PO SCH ×3 (02:06→16:56)
[2018-05-01] MEDS: HYDROcodone/acetaminophen 5mg/325mg tablet PO PRN (02:44)
[2018-05-01 03:00] VITALS: BP 116/52
[2018-05-01 05:19] LABS: BASOPHILS % (AUTO) 0.4 % (0-1); EOSINOPHILS # (AUTO) 0.1 X10'3 (0-0.9); EOSINOPHILS % (AUTO) 1.3 % (0-6); HEMATOCRIT 29.5 % (35.0-45.0); HEMOGLOBIN 9.4 g/dl (12.0-16.0); LYMPHOCYTES # (AUTO) 2.2 X10'3 (1.1-4.8); LYMPHOCYTES % (AUTO) 31.3 % (21-51); MEAN CORPUSCULAR HEMOGLOBIN 27.1 PG (27.0-31.0); MEAN CORPUSCULAR HGB CONC 31.9 % (33.0-36.5); MEAN CORPUSCULAR VOLUME 84.8 FL (78-98); MEAN PLATELET VOLUME 8.6 FL (7.4-10.4); MONOCYTES # (AUTO) 0.5 X10'3 (0-0.9); MONOCYTES % (AUTO) 7.2 % (2-12); NEUTROPHILS # (AUTO) 4.2 X10'3 (1.8-7.7); NEUTROPHILS % (AUTO) 59.8 % (42-75); PLATELET COUNT 198 X10'3 (140-440); RED BLOOD COUNT 3.48 X10'6 (4.20-5.60); RED CELL DISTRIBUTION WIDTH 17.1 % (11.5-14.5); WHITE BLOOD COUNT 7.1 X10'3 (4.5-11.0)
[2018-05-01 05:30] VITALS: BP 112/58
[2018-05-01 05:46] LABS: ALANINE AMINOTRANSFERASE 28 U/L (12-78); ALBUMIN 2.8 G/DL (3.4-5.0); ALBUMIN/GLOBULIN RATIO 0.8 (1.1-1.5); ALKALINE PHOSPHATASE 57 IU/L (46-116); ANION GAP 8 (8-16); ASPARTATE AMINO TRANSFERASE 23 U/L (10-37); BILIRUBIN,TOTAL 0.3 MG/DL (0.1-1.0); BLOOD UREA NITROGEN 48 MG/DL (7-18); BUN/CREATININE RATIO 25.4 (6.6-38.0); CALCIUM 8.3 MG/DL (8.5-10.1); CHLORIDE 98 MMOL/L (99-107); CREATININE 1.89 MG/DL (0.40-0.90); GLUCOSE 114 MG/DL (70-104); MAGNESIUM 2.1 MG/DL (1.5-2.4); POTASSIUM 4.2 MMOL/L (3.5-5.1); SODIUM 135 MMOL/L (135-145); TOTAL CARBON DIOXIDE 28.7 MMOL/L (24-32); TOTAL PROTEIN 6.4 G/DL (6.4-8.2); eGFR 25 ML/MIN
[2018-05-01] MEDS: naphazoline/pheniramine eye 1 DROP BOTTLE EACHEYE SCH (07:27)
[2018-05-01] MEDS: pantoprazole 40mg Tablet.DR PO SCH (07:28)
[2018-05-01] MEDS: busPIRone 15mg tablet PO SCH (07:28)
[2018-05-01] MEDS: ferrous sulfate 325mg tablet PO SCH (07:28)
[2018-05-01] MEDS: CefTRIAXone/D5W-Rocephin 1gm 50 ML IV SCH (07:28)
[2018-05-01] MEDS: atorvastatin 10mg tablet PO SCH (07:28)
[2018-05-01] MEDS: carvedilol 6.25mg tablet PO SCH (07:28)
[2018-05-01] MEDS: levoTHYROXINE 75mcg tablet PO SCH (07:28)
[2018-05-01] MEDS: lactobacillus rhamnosus 10,000 MMU CELLS/CAPSULE PO SCH (07:28)
[2018-05-01] MEDS: furosemide 10 MG/1 ML 10ml inj IV SCH (07:28)
[2018-05-01] MEDS: BUDESONIDE 0.25 MG/2 ML AMPUL.NEB IH SCH (07:50)
[2018-05-01] MEDS: ipratropium 0.5 MG/2.5ML nebule IH SCH ×2 (07:50→14:39)
[2018-05-01] MEDS: K and/or MAG REPLACEMENT MC SCH (08:00)
[2018-05-01] MEDS: insulin Lispro (HumaLOG) vial - multi-dose SQ SCH ×2 (09:32→13:13)
[2018-05-01] MEDS ORDERED: CARV6.253 PO (09:57)
[2018-05-01] MEDS ORDERED: CEFD300C3 PO (09:57)
[2018-05-01] MEDS ORDERED: LACT1CAP26 PO (09:57)
[2018-05-01 11:00] VITALS: BP 112/56
[2018-05-01 15:00] VITALS: BP 102/48
== END 2018-05-01 17:47 | disposition home health service (06) | DRG 291 ==
LOC: ER 10:21 → ED HOLD 13:27 → PCU 3S 14:35
PROVIDERS: ADMIT Family Medicine; ATTEND Family Medicine
PROC: 5A09357 Assistance with Respiratory Ventilation, Less than 24 Consecutive Hours, Continuous Positive Airway Pressure (ICD-10-PCS; principal; 2018-04-28)
PROC: 5A09357 Assistance with Respiratory Ventilation, Less than 24 Consecutive Hours, Continuous Positive Airway Pressure (ICD-10-PCS; 2018-04-29)
PROC: 5A09357 Assistance with Respiratory Ventilation, Less than 24 Consecutive Hours, Continuous Positive Airway Pressure (ICD-10-PCS; 2018-04-30)
DX: I13.0 Hypertensive heart and chronic kidney disease with heart failure and stage 1 through stage 4 chronic kidney disease, or unspecified chronic kidney disease (principal); I50.43 Acute on chronic combined systolic (congestive) and diastolic (congestive) heart failure; J96.20 Acute and chronic respiratory failure, unspecified whether with hypoxia or hypercapnia; N17.9 Acute kidney failure, unspecified; J44.9 Chronic obstructive pulmonary disease, unspecified; I48.0 Paroxysmal atrial fibrillation; F41.9 Anxiety disorder, unspecified; F32.9 Major depressive disorder, single episode, unspecified; E11.22 Type 2 diabetes mellitus with diabetic chronic kidney disease; M54.9 Dorsalgia, unspecified; G89.29 Other chronic pain; D35.00 Benign neoplasm of unspecified adrenal gland; D64.9 Anemia, unspecified; E03.9 Hypothyroidism, unspecified; G47.33 Obstructive sleep apnea (adult) (pediatric); I25.10 Atherosclerotic heart disease of native coronary artery without angina pectoris; I44.7 Left bundle-branch block, unspecified; N18.9 Chronic kidney disease, unspecified; K26.9 Duodenal ulcer, unspecified as acute or chronic, without hemorrhage or perforation; K21.9 Gastro-esophageal reflux disease without esophagitis; Z99.81 Dependence on supplemental oxygen; Z90.710 Acquired absence of both cervix and uterus; Z95.5 Presence of coronary angioplasty implant and graft; Z88.5 Allergy status to narcotic agent; Z88.8 Allergy status to other drugs, medicaments and biological substances; Z79.84 Long term (current) use of oral hypoglycemic drugs; Z79.899 Other long term (current) drug therapy; Z87.891 Personal history of nicotine dependence; Z87.01 Personal history of pneumonia (recurrent); Z82.49 Family history of ischemic heart disease and other diseases of the circulatory system; Z83.3 Family history of diabetes mellitus; Z80.0 Family history of malignant neoplasm of digestive organs
CPT/HCPCS: 36415; 71045; 71250; 80053; 80061; 81001; 81003; 82088; 82530; 82533; 82570; 82948; 83036; 83735; 83835; 83880; 84244; 84443; 84484; 85025; 85610; 85730; 87070; 87088; 93005; 93306; 94640; 94660; 94760; 96374; 99285; A4353; J0696; J1815; J1940; J7030

== ENCOUNTER 2018-05-10 15:20 | Inpatient (IN) | payer MEDICARE, OTHER ==
[~2018-05-10] VITALS: Ht 170.2 cm; Wt 119.1 kg
[~2018-05-10 15:20] MED LIST changes: +ALB0.5UD IH; -ALBU18HF2 INH; -AMLO5TAB PO; -ATOR10TA70 PO; +ATOR10TA87 PO; +BUSP15TA12 PO; +CARV6.253 PO; +CEFD300C3 PO; +FERR325T28 PO; -FLUT16SP18 NS; +GLIP5TAB13 PO; +LACT1CAP26 PO; -LEVO5TAB13 PO; -METF500T PO; -MONT10TA24 PO; +PAT0.1OS OP; +POTA8CAP9 PO; -POTA8TAB3 PO; +QUET25TA PO; -TIOT18CA3; +TIOT18CA3 IH; +VALS40TA2 PO; -VALS80TA31 PO
[2018-05-10 15:43] LABS: BASOPHILS % (AUTO) 0.3 % (0-1); EOSINOPHILS # (AUTO) 0.2 X10'3 (0-0.9); EOSINOPHILS % (AUTO) 2.3 % (0-6); HEMATOCRIT 34.2 % (35.0-45.0); HEMOGLOBIN 10.8 g/dl (12.0-16.0); LYMPHOCYTES # (AUTO) 1.7 X10'3 (1.1-4.8); LYMPHOCYTES % (AUTO) 19.7 % (21-51); MEAN CORPUSCULAR HEMOGLOBIN 27.4 PG (27.0-31.0); MEAN CORPUSCULAR HGB CONC 31.5 % (33.0-36.5); MEAN CORPUSCULAR VOLUME 86.9 FL (78-98); MEAN PLATELET VOLUME 8.3 FL (7.4-10.4); MONOCYTES # (AUTO) 0.7 X10'3 (0-0.9); MONOCYTES % (AUTO) 7.7 % (2-12); NEUTROPHILS # (AUTO) 6.1 X10'3 (1.8-7.7); PLATELET COUNT 212 X10'3 (140-440); RED BLOOD COUNT 3.93 X10'6 (4.20-5.60); RED CELL DISTRIBUTION WIDTH 18.5 % (11.5-14.5); WHITE BLOOD COUNT 8.8 X10'3 (4.5-11.0)
[2018-05-10 15:52] LABS: INR 1.1 INR; PARTIAL THROMBOPLASTIN TIME 24 SECONDS (22-32); PROTHROMBIN TIME 11.3 SECONDS (9.0-12.0)
[2018-05-10 15:57] LABS: ALANINE AMINOTRANSFERASE 29 U/L (12-78); ALBUMIN 2.9 G/DL (3.4-5.0); ALBUMIN/GLOBULIN RATIO 0.8 (1.1-1.5); ALKALINE PHOSPHATASE 74 IU/L (46-116); ANION GAP 5 (8-16); ASPARTATE AMINO TRANSFERASE 31 U/L (10-37); BILIRUBIN,TOTAL 0.3 MG/DL (0.1-1.0); BLOOD UREA NITROGEN 34 MG/DL (7-18); BUN/CREATININE RATIO 20.2 (6.6-38.0); CALCIUM 9.1 MG/DL (8.5-10.1); CHLORIDE 101 MMOL/L (99-107); CREATININE 1.68 MG/DL (0.40-0.90); GLUCOSE 193 MG/DL (70-104); SODIUM 139 MMOL/L (135-145); TOTAL CARBON DIOXIDE 33.5 MMOL/L (24-32); TOTAL PROTEIN 6.7 G/DL (6.4-8.2); eGFR 29 ML/MIN
[2018-05-10 16:04] LABS: MAGNESIUM 1.9 MG/DL (1.5-2.4)
[2018-05-10] MEDS ORDERED: furosemide 10 MG/1 ML 10ml inj IV ONE ×2 (16:20→17:10)
[2018-05-10] MEDS ORDERED: ipratropium/albuterol 3ml nebule NEB ONE (16:20)
[2018-05-10 17:07] LABS: CLARITY,URINE CLEAR (Clear); COLOR,URINE YELLOW (Yellow); GLUCOSE, URINE NEGATIVE (Neg); KETONES,URINE NEGATIVE (Neg); LEUKOCYTE ESTERASE ,URINE NEGATIVE (Neg); NITRITES, URINE NEGATIVE (Neg); OCCULT BLOOD,URINE NEGATIVE (Neg); PH,URINE 5.5 (4.8-8.0); PROTEIN,URINE NEGATIVE (Neg); UROBILINOGEN,URINE 0.2 E.U/dL (0.2-1.0)
[2018-05-10 17:08] LABS: UA COLLECTION TYPE STRAIGHT CATH
[2018-05-10] MEDS ORDERED: azithromycin/NS 500mg/250ml 250 ML IV ONE (17:10)
[2018-05-10] MEDS ORDERED: cefepime 2g/NS 100ml ADVANTAGE 100 ML IV SCH ×2 (17:10→19:00)
[2018-05-10] MEDS ORDERED: vancomycin/NS 1 GM ADD-VANTAGE 250 ML X 1 DOSE IV ONE ×2 (17:15→20:45)
[2018-05-10] MEDS ORDERED: magnesium 1gm/100ml D5W IVPB 100 ML IV PRN (18:20)
[2018-05-10] MEDS ORDERED: ALBUTEROL SULFATE 90 MCG IH PRN (18:20)
[2018-05-10] MEDS ORDERED: acetaminophen 325mg tablet PO PRN ×2 (18:20)
[2018-05-10] MEDS ORDERED: dextrose 50%-water 50ml dispensing syringe IV PRN ×2 (18:20)
[2018-05-10] MEDS ORDERED: dextrose ORAL solution 15 GM/59 ML bottle PO PRN ×2 (18:20)
[2018-05-10] MEDS ORDERED: diphenhydrAMINE 25mg capsule PO PRN (18:20)
[2018-05-10] MEDS ORDERED: mag hydrox/Alum hydrox/simeth 30ml oral suspension PO PRN (18:20)
[2018-05-10] MEDS ORDERED: magnesium hydroxide 30ml (MOM) UD suspension PO PRN (18:20)
[2018-05-10] MEDS ORDERED: ondansetron/PF 4mg/2ml inj IV PRN (18:20)
[2018-05-10] MEDS ORDERED: potassium Cl 20 mEq SR tablet PO PRN ×2 (18:20)
[2018-05-10] MEDS ORDERED: magnesium Cl slow-release 64mg tablet PO PRN (18:20)
[2018-05-10] MEDS ORDERED: potassium Cl 40MEQ/NS 500ml 500 ML IV PRN ×2 (18:20)
[2018-05-10] MEDS ORDERED: magnesium 4gm in 100ml NS 100 ML IV PRN (18:20)
[2018-05-10] MEDS ORDERED: glucagon, human recombinant 1mg kit SUBCUT PRN (18:20)
[2018-05-10] MEDS: K and/or MAG REPLACEMENT MC SCH (18:20)
[2018-05-10] MEDS ORDERED: MESSAGE TO PHARMACY PO ONE (18:20)
[2018-05-10] MEDS ORDERED: albuterol 2.5 MG/3 ML nebule NEB PRN (18:25)
[2018-05-10] MEDS ORDERED: naphazoline/pheniramine eye 1 DROP BOTTLE EACHEYE PRN (18:30)
[2018-05-10 19:00] VITALS: BP 96/54
[2018-05-10] MEDS ORDERED: BUDESONIDE IH SCH (20:00)
[2018-05-10] MEDS ORDERED: OLOPATADINE HCL OP SCH (20:00)
[2018-05-10] MEDS: carvedilol 6.25mg tablet PO SCH (20:00)
[2018-05-10] MEDS: BUDESONIDE 0.25 MG/2 ML AMPUL.NEB IH SCH (20:23)
[2018-05-10] MEDS: ipratropium/albuterol 3ml nebule NEB SCH (20:23)
[2018-05-10] MEDS: pantoprazole 40mg Tablet.DR PO SCH (20:53)
[2018-05-10] MEDS: furosemide 10 MG/1 ML 10ml inj IV SCH (20:53)
[2018-05-10] MEDS: heparin, porcine 5000 units/ml vial SQ SCH (20:54)
[2018-05-10] MEDS: busPIRone 15mg tablet PO SCH (20:55)
[2018-05-10] MEDS: lactobacillus rhamnosus 10,000 MMU CELLS/CAPSULE PO SCH (20:55)
[2018-05-10] MEDS: QUEtiapine 25mg tablet PO SCH (20:56)
[2018-05-10] MEDS: pregabalin 25mg capsule PO SCH (20:56)
[2018-05-10] MEDS: insulin glargine (Lantus) pen - multi-dose SQ SCH (21:00)
[2018-05-10] MEDS ORDERED: temazepam 15mg capsule PO PRN (21:00)
[2018-05-10] MEDS: piperacillin/tazo 3.375gm/50ml 50 ML IV SCH (21:09)
[2018-05-10] MEDS: HYDROcodone/acetaminophen 5mg/325mg tablet PO PRN (22:55)
[2018-05-10 23:00] VITALS: BP 147/63
[2018-05-11] VITALS (9 sets, daily range): BP systolic 93–155; BP diastolic 42–78
[2018-05-11] MEDS ORDERED: non-formulary drug (Pregabalin (Lyrica) 1 CAP) PO SCH
[2018-05-11] MEDS: piperacillin/tazo 3.375gm/50ml 50 ML IV SCH ×4 (02:12→21:11)
[2018-05-11] MEDS: ipratropium/albuterol 3ml nebule NEB SCH ×4 (02:50→20:09)
[2018-05-11 03:58] LABS: BASOPHILS % (AUTO) 0.1 % (0-1); EOSINOPHILS # (AUTO) 0.2 X10'3 (0-0.9); EOSINOPHILS % (AUTO) 1.9 % (0-6); HEMOGLOBIN 10.1 g/dl (12.0-16.0); LYMPHOCYTES # (AUTO) 1.7 X10'3 (1.1-4.8); LYMPHOCYTES % (AUTO) 20.1 % (21-51); MEAN CORPUSCULAR HEMOGLOBIN 27.3 PG (27.0-31.0); MEAN CORPUSCULAR HGB CONC 31.6 % (33.0-36.5); MEAN CORPUSCULAR VOLUME 86.4 FL (78-98); MEAN PLATELET VOLUME 8.2 FL (7.4-10.4); MONOCYTES # (AUTO) 0.2 X10'3 (0-0.9); MONOCYTES % (AUTO) 1.9 % (2-12); NEUTROPHILS # (AUTO) 6.6 X10'3 (1.8-7.7); PLATELET COUNT 224 X10'3 (140-440); RED CELL DISTRIBUTION WIDTH 18.1 % (11.5-14.5); WHITE BLOOD COUNT 8.7 X10'3 (4.5-11.0)
[2018-05-11 04:13] LABS: ALANINE AMINOTRANSFERASE 29 U/L (12-78); ALBUMIN/GLOBULIN RATIO 0.9 (1.1-1.5); ALKALINE PHOSPHATASE 66 IU/L (46-116); ANION GAP 6 (8-16); ASPARTATE AMINO TRANSFERASE 23 U/L (10-37); BILIRUBIN,TOTAL 0.4 MG/DL (0.1-1.0); BLOOD UREA NITROGEN 33 MG/DL (7-18); BUN/CREATININE RATIO 17.2 (6.6-38.0); CALCIUM 8.9 MG/DL (8.5-10.1); CHLORIDE 103 MMOL/L (99-107); CREATININE 1.92 MG/DL (0.40-0.90); GLUCOSE 143 MG/DL (70-104); POTASSIUM 3.7 MMOL/L (3.5-5.1); SODIUM 142 MMOL/L (135-145); TOTAL CARBON DIOXIDE 33.4 MMOL/L (24-32); TOTAL PROTEIN 6.5 G/DL (6.4-8.2); eGFR 25 ML/MIN
[2018-05-11 04:16] LABS: MAGNESIUM 1.7 MG/DL (1.5-2.4); PHOSPHORUS 4.1 MG/DL (2.3-4.5)
[2018-05-11 04:20] LABS: ANISOCYTOSIS 2+; MICROCYTOSIS 1+; PLATELET ESTIMATE NORMAL; POLYCHROMASIA 1+
[2018-05-11] MEDS ORDERED: non-formulary drug (Tiotropium Bromide (Spiriva) 1 PUFF) IH SCH (08:00)
[2018-05-11] MEDS: K and/or MAG REPLACEMENT MC SCH (08:00)
[2018-05-11] MEDS: carvedilol 6.25mg tablet PO SCH ×2 (08:44→21:08)
[2018-05-11] MEDS: lactobacillus rhamnosus 10,000 MMU CELLS/CAPSULE PO SCH ×2 (08:44→21:09)
[2018-05-11] MEDS: ferrous sulfate 325mg tablet PO SCH (08:44)
[2018-05-11] MEDS: busPIRone 15mg tablet PO SCH ×2 (08:45→21:07)
[2018-05-11] MEDS: levoTHYROXINE 75mcg tablet PO SCH (08:45)
[2018-05-11] MEDS: atorvastatin 10mg tablet PO SCH (08:45)
[2018-05-11] MEDS: pantoprazole 40mg Tablet.DR PO SCH ×2 (08:45→21:03)
[2018-05-11] MEDS: pregabalin 25mg capsule PO SCH ×3 (08:46→21:08)
[2018-05-11] MEDS: BUDESONIDE 0.25 MG/2 ML AMPUL.NEB IH SCH ×2 (08:47→20:09)
[2018-05-11] MEDS: heparin, porcine 5000 units/ml vial SQ SCH ×2 (08:48→21:10)
[2018-05-11] MEDS: furosemide 10 MG/1 ML 10ml inj IV SCH ×2 (08:51→21:11)
[2018-05-11] MEDS: insulin glargine (Lantus) pen - multi-dose SQ SCH (21:00)
[2018-05-11] MEDS: QUEtiapine 25mg tablet PO SCH (21:09)
[2018-05-11] MEDS: HYDROcodone/acetaminophen 5mg/325mg tablet PO PRN (21:20)
[2018-05-12] MEDS: ipratropium/albuterol 3ml nebule NEB SCH ×4 (02:28→23:29)
[2018-05-12] MEDS: piperacillin/tazo 3.375gm/50ml 50 ML IV SCH ×2 (02:44→07:47)
[2018-05-12 03:00] VITALS: BP 87/47
[2018-05-12 05:13] LABS: BASOPHILS % (AUTO) 0.2 % (0-1); EOSINOPHILS # (AUTO) 0.2 X10'3 (0-0.9); EOSINOPHILS % (AUTO) 2.7 % (0-6); HEMATOCRIT 29.5 % (35.0-45.0); HEMOGLOBIN 9.3 g/dl (12.0-16.0); LYMPHOCYTES # (AUTO) 1.7 X10'3 (1.1-4.8); LYMPHOCYTES % (AUTO) 24.5 % (21-51); MEAN CORPUSCULAR HEMOGLOBIN 27.1 PG (27.0-31.0); MEAN CORPUSCULAR HGB CONC 31.6 % (33.0-36.5); MEAN CORPUSCULAR VOLUME 85.7 FL (78-98); MEAN PLATELET VOLUME 8.4 FL (7.4-10.4); MONOCYTES # (AUTO) 0.4 X10'3 (0-0.9); MONOCYTES % (AUTO) 5.5 % (2-12); NEUTROPHILS # (AUTO) 4.7 X10'3 (1.8-7.7); NEUTROPHILS % (AUTO) 67.1 % (42-75); PLATELET COUNT 194 X10'3 (140-440); RED BLOOD COUNT 3.44 X10'6 (4.20-5.60); RED CELL DISTRIBUTION WIDTH 18.2 % (11.5-14.5); WHITE BLOOD COUNT 7.1 X10'3 (4.5-11.0)
[2018-05-12 05:39] LABS: ALANINE AMINOTRANSFERASE 18 U/L (12-78); ALBUMIN 2.6 G/DL (3.4-5.0); ALBUMIN/GLOBULIN RATIO 0.8 (1.1-1.5); ALKALINE PHOSPHATASE 54 IU/L (46-116); ANION GAP 7 (8-16); ASPARTATE AMINO TRANSFERASE 18 U/L (10-37); BILIRUBIN,TOTAL 0.5 MG/DL (0.1-1.0); BLOOD UREA NITROGEN 32 MG/DL (7-18); BUN/CREATININE RATIO 16.2 (6.6-38.0); CALCIUM 8.5 MG/DL (8.5-10.1); CHLORIDE 103 MMOL/L (99-107); CREATININE 1.97 MG/DL (0.40-0.90); GLUCOSE 138 MG/DL (70-104); MAGNESIUM 1.8 MG/DL (1.5-2.4); PHOSPHORUS 3.5 MG/DL (2.3-4.5); POTASSIUM 3.5 MMOL/L (3.5-5.1); SODIUM 142 MMOL/L (135-145); TOTAL CARBON DIOXIDE 31.9 MMOL/L (24-32); TOTAL PROTEIN 5.9 G/DL (6.4-8.2); eGFR 24 ML/MIN
[2018-05-12 06:00] VITALS: BP 137/52
[2018-05-12 07:37] LABS: ANISOCYTOSIS 2+; MICROCYTOSIS 1+; PLATELET ESTIMATE NORMAL; POIKILOCYTOSIS FEW; POLYCHROMASIA FEW; TARGET CELLS FEW
[2018-05-12] MEDS: furosemide 10 MG/1 ML 10ml inj IV SCH ×2 (07:49→20:19)
[2018-05-12] MEDS: ferrous sulfate 325mg tablet PO SCH (07:58)
[2018-05-12] MEDS: pantoprazole 40mg Tablet.DR PO SCH ×2 (07:58→20:26)
[2018-05-12] MEDS: levoTHYROXINE 75mcg tablet PO SCH (07:58)
[2018-05-12] MEDS: busPIRone 15mg tablet PO SCH ×2 (07:58→20:19)
[2018-05-12] MEDS: pregabalin 25mg capsule PO SCH ×3 (07:58→20:20)
[2018-05-12] MEDS: heparin, porcine 5000 units/ml vial SQ SCH ×2 (07:58→20:19)
[2018-05-12] MEDS: atorvastatin 10mg tablet PO SCH (07:59)
[2018-05-12] MEDS: lactobacillus rhamnosus 10,000 MMU CELLS/CAPSULE PO SCH ×2 (07:59→20:20)
[2018-05-12] MEDS: carvedilol 6.25mg tablet PO SCH ×2 (07:59→20:20)
[2018-05-12] MEDS: potassium chloride 10mEq ER tablet PO SCH (07:59)
[2018-05-12] MEDS: K and/or MAG REPLACEMENT MC SCH (08:00)
[2018-05-12] MEDS: BUDESONIDE 0.25 MG/2 ML AMPUL.NEB IH SCH ×2 (10:21→19:04)
[2018-05-12 11:00] VITALS: BP 128/50
[2018-05-12 15:00] VITALS: BP 101/50
[2018-05-12] MEDS: predniSONE 20 mg tablet PO SCH (17:03)
[2018-05-12 19:00] VITALS: BP 114/42
[2018-05-12] MEDS: QUEtiapine 25mg tablet PO SCH (20:19)
[2018-05-12] MEDS: insulin glargine (Lantus) pen - multi-dose SQ SCH (20:20)
[2018-05-12] MEDS: piperacillin-tazo 2.25gm/50ml 50 ML IV SCH (20:26)
[2018-05-12] MEDS: HYDROcodone/acetaminophen 5mg/325mg tablet PO PRN (22:08)
[2018-05-12 23:00] VITALS: BP 139/65
[2018-05-13] MEDS: piperacillin-tazo 2.25gm/50ml 50 ML IV SCH ×4 (02:14→20:57)
[2018-05-13] MEDS: ipratropium/albuterol 3ml nebule NEB SCH ×6 (02:37→23:16)
[2018-05-13 03:00] VITALS: BP 151/89
[2018-05-13 05:14] LABS: BASOPHILS % (AUTO) 0 % (0-1); EOSINOPHILS % (AUTO) 0.6 % (0-6); HEMATOCRIT 31.7 % (35.0-45.0); HEMOGLOBIN 9.8 g/dl (12.0-16.0); LYMPHOCYTES % (AUTO) 18.5 % (21-51); MEAN CORPUSCULAR HEMOGLOBIN 27.1 PG (27.0-31.0); MEAN CORPUSCULAR VOLUME 87.2 FL (78-98); MEAN PLATELET VOLUME 8.7 FL (7.4-10.4); MONOCYTES # (AUTO) 0.1 X10'3 (0-0.9); MONOCYTES % (AUTO) 1.9 % (2-12); NEUTROPHILS # (AUTO) 4.4 X10'3 (1.8-7.7); PLATELET COUNT 200 X10'3 (140-440); RED BLOOD COUNT 3.63 X10'6 (4.20-5.60); RED CELL DISTRIBUTION WIDTH 17.9 % (11.5-14.5); WHITE BLOOD COUNT 5.5 X10'3 (4.5-11.0)
[2018-05-13 05:37] LABS: ALANINE AMINOTRANSFERASE 21 U/L (12-78); ALBUMIN 2.7 G/DL (3.4-5.0); ALBUMIN/GLOBULIN RATIO 0.8 (1.1-1.5); ALKALINE PHOSPHATASE 54 IU/L (46-116); ANION GAP 6 (8-16); ASPARTATE AMINO TRANSFERASE 21 U/L (10-37); BILIRUBIN,TOTAL 0.4 MG/DL (0.1-1.0); BLOOD UREA NITROGEN 31 MG/DL (7-18); BUN/CREATININE RATIO 16.5 (6.6-38.0); CALCIUM 8.6 MG/DL (8.5-10.1); CHLORIDE 101 MMOL/L (99-107); CREATININE 1.88 MG/DL (0.40-0.90); GLUCOSE 227 MG/DL (70-104); MAGNESIUM 1.8 MG/DL (1.5-2.4); PHOSPHORUS 3.3 MG/DL (2.3-4.5); POTASSIUM 4.1 MMOL/L (3.5-5.1); SODIUM 139 MMOL/L (135-145); TOTAL CARBON DIOXIDE 32.3 MMOL/L (24-32); TOTAL PROTEIN 6.3 G/DL (6.4-8.2); eGFR 26 ML/MIN
[2018-05-13 07:00] VITALS: BP 105/52
[2018-05-13] MEDS: pantoprazole 40mg Tablet.DR PO SCH ×2 (07:55→20:57)
[2018-05-13] MEDS: levoTHYROXINE 75mcg tablet PO SCH (07:55)
[2018-05-13] MEDS: pregabalin 25mg capsule PO SCH ×3 (07:56→20:57)
[2018-05-13] MEDS: busPIRone 15mg tablet PO SCH ×2 (07:56→20:57)
[2018-05-13] MEDS: carvedilol 6.25mg tablet PO SCH ×2 (07:56→20:57)
[2018-05-13] MEDS: lactobacillus rhamnosus 10,000 MMU CELLS/CAPSULE PO SCH ×2 (07:56→20:57)
[2018-05-13] MEDS: atorvastatin 10mg tablet PO SCH (07:56)
[2018-05-13] MEDS: predniSONE 20 mg tablet PO SCH (07:56)
[2018-05-13] MEDS: potassium chloride 10mEq ER tablet PO SCH (07:56)
[2018-05-13] MEDS: ferrous sulfate 325mg tablet PO SCH (07:57)
[2018-05-13] MEDS: furosemide 10 MG/1 ML 10ml inj IV SCH ×2 (07:58→20:56)
[2018-05-13] MEDS: K and/or MAG REPLACEMENT MC SCH (08:00)
[2018-05-13] MEDS: heparin, porcine 5000 units/ml vial SQ SCH ×2 (08:00→20:56)
[2018-05-13] MEDS: BUDESONIDE 0.25 MG/2 ML AMPUL.NEB IH SCH ×2 (08:10→18:49)
[2018-05-13] MEDS: insulin Lispro (HumaLOG) vial - multi-dose SQ SCH ×2 (08:17→18:53)
[2018-05-13] MEDS: azithromycin/NS 500mg/250ml 250 ML IV SCH (09:24)
[2018-05-13 11:00] VITALS: BP 103/58
[2018-05-13] MEDS: NUT.TX.GLUC.INTOLER,LAC-FR,REG (BOOST GLUCOSE CONTROL) 237 ML PO SCH ×2 (13:00→18:00)
[2018-05-13 15:00] VITALS: BP 134/73
[2018-05-13 19:00] VITALS: BP 111/61
[2018-05-13] MEDS: QUEtiapine 25mg tablet PO SCH (20:57)
[2018-05-13] MEDS: losartan 25mg tablet PO SCH (20:57)
[2018-05-13] MEDS: HYDROcodone/acetaminophen 5mg/325mg tablet PO PRN (21:06)
[2018-05-13] MEDS: insulin glargine (Lantus) pen - multi-dose SQ SCH (21:17)
[2018-05-13 23:00] VITALS: BP 101/70
[2018-05-14] MEDS: piperacillin-tazo 2.25gm/50ml 50 ML IV SCH ×3 (02:22→13:21)
[2018-05-14] MEDS: ipratropium/albuterol 3ml nebule NEB SCH ×4 (02:39→14:23)
[2018-05-14 03:00] VITALS: BP 94/57
[2018-05-14] MEDS: HYDROcodone/acetaminophen 5mg/325mg tablet PO PRN (04:17)
[2018-05-14 05:27] LABS: BASOPHILS % (AUTO) 0.4 % (0-1); EOSINOPHILS % (AUTO) 0 % (0-6); HEMATOCRIT 34.3 % (35.0-45.0); HEMOGLOBIN 10.8 g/dl (12.0-16.0); LYMPHOCYTES # (AUTO) 1.4 X10'3 (1.1-4.8); MEAN CORPUSCULAR HEMOGLOBIN 27.2 PG (27.0-31.0); MEAN CORPUSCULAR HGB CONC 31.6 % (33.0-36.5); MEAN PLATELET VOLUME 8.6 FL (7.4-10.4); MONOCYTES # (AUTO) 0.4 X10'3 (0-0.9); MONOCYTES % (AUTO) 4.9 % (2-12); NEUTROPHILS # (AUTO) 5.9 X10'3 (1.8-7.7); NEUTROPHILS % (AUTO) 76.7 % (42-75); PLATELET COUNT 205 X10'3 (140-440); RED BLOOD COUNT 3.98 X10'6 (4.20-5.60); RED CELL DISTRIBUTION WIDTH 18.3 % (11.5-14.5); WHITE BLOOD COUNT 7.7 X10'3 (4.5-11.0)
[2018-05-14 05:50] LABS: ALANINE AMINOTRANSFERASE 25 U/L (12-78); ALBUMIN 3.1 G/DL (3.4-5.0); ALBUMIN/GLOBULIN RATIO 0.8 (1.1-1.5); ALKALINE PHOSPHATASE 58 IU/L (46-116); ANION GAP 9 (8-16); ASPARTATE AMINO TRANSFERASE 30 U/L (10-37); BILIRUBIN,TOTAL 0.3 MG/DL (0.1-1.0); BLOOD UREA NITROGEN 38 MG/DL (7-18); BUN/CREATININE RATIO 21.7 (6.6-38.0); CHLORIDE 100 MMOL/L (99-107); CREATININE 1.75 MG/DL (0.40-0.90); GLUCOSE 172 MG/DL (70-104); MAGNESIUM 1.9 MG/DL (1.5-2.4); PHOSPHORUS 2.5 MG/DL (2.3-4.5); SODIUM 138 MMOL/L (135-145); TOTAL CARBON DIOXIDE 29.3 MMOL/L (24-32); TOTAL PROTEIN 7.1 G/DL (6.4-8.2); eGFR 28 ML/MIN
[2018-05-14 06:00] VITALS: BP 105/45
[2018-05-14] MEDS: BUDESONIDE 0.25 MG/2 ML AMPUL.NEB IH SCH (07:10)
[2018-05-14] MEDS: atorvastatin 10mg tablet PO SCH (07:27)
[2018-05-14] MEDS: busPIRone 15mg tablet PO SCH (07:27)
[2018-05-14] MEDS: predniSONE 20 mg tablet PO SCH (07:27)
[2018-05-14] MEDS: ferrous sulfate 325mg tablet PO SCH (07:27)
[2018-05-14] MEDS: losartan 25mg tablet PO SCH (07:27)
[2018-05-14] MEDS: levoTHYROXINE 75mcg tablet PO SCH (07:27)
[2018-05-14] MEDS: lactobacillus rhamnosus 10,000 MMU CELLS/CAPSULE PO SCH (07:27)
[2018-05-14] MEDS: carvedilol 6.25mg tablet PO SCH (07:27)
[2018-05-14] MEDS: pregabalin 25mg capsule PO SCH ×2 (07:27→12:29)
[2018-05-14] MEDS: furosemide 10 MG/1 ML 10ml inj IV SCH (07:28)
[2018-05-14] MEDS: potassium chloride 10mEq ER tablet PO SCH (07:28)
[2018-05-14] MEDS: heparin, porcine 5000 units/ml vial SQ SCH (07:29)
[2018-05-14] MEDS: pantoprazole 40mg Tablet.DR PO SCH (07:29)
[2018-05-14] MEDS: K and/or MAG REPLACEMENT MC SCH (08:00)
[2018-05-14] MEDS: NUT.TX.GLUC.INTOLER,LAC-FR,REG (BOOST GLUCOSE CONTROL) 237 ML PO SCH ×2 (08:00→13:00)
[2018-05-14] MEDS: azithromycin/NS 500mg/250ml 250 ML IV SCH (08:57)
[2018-05-14] MEDS: insulin Lispro (HumaLOG) vial - multi-dose SQ SCH ×3 (09:02→19:05)
[2018-05-14 09:22] LABS: LARGE PLATELETS FEW; PLATELET ESTIMATE NORMAL
[2018-05-14 09:23] LABS: ANISOCYTOSIS 2+
[2018-05-14 11:00] VITALS: BP 120/57
[2018-05-14 15:00] VITALS: BP 108/48
[2018-05-14] MEDS ORDERED: VANCOMYCIN LEVEL IV NR (17:30)
[2018-05-14] MEDS ORDERED: VANCOMYCIN LEVEL IV ONE (17:30)
[2018-05-14 19:00] VITALS: BP 144/78
[2018-05-15] MEDS ORDERED: azithromycin 250mg tablet PO SCH (08:00)
== END 2018-05-14 19:30 | DRG 177 ==
LOC: ER 15:20 → ED HOLD 18:20 → PCU 3S 19:19
PROVIDERS: ADMIT Family Medicine; ATTEND Family Medicine
PROC: 5A09357 Assistance with Respiratory Ventilation, Less than 24 Consecutive Hours, Continuous Positive Airway Pressure (ICD-10-PCS; principal; 2018-05-10)
DX: J69.0 Pneumonitis due to inhalation of food and vomit (principal); J96.20 Acute and chronic respiratory failure, unspecified whether with hypoxia or hypercapnia; I13.0 Hypertensive heart and chronic kidney disease with heart failure and stage 1 through stage 4 chronic kidney disease, or unspecified chronic kidney disease; Z68.41 Body mass index [BMI] 40.0-44.9, adult; J44.0 Chronic obstructive pulmonary disease with (acute) lower respiratory infection; D35.00 Benign neoplasm of unspecified adrenal gland; E03.9 Hypothyroidism, unspecified; F32.9 Major depressive disorder, single episode, unspecified; F41.9 Anxiety disorder, unspecified; G47.33 Obstructive sleep apnea (adult) (pediatric); I25.10 Atherosclerotic heart disease of native coronary artery without angina pectoris; I44.7 Left bundle-branch block, unspecified; I48.91 Unspecified atrial fibrillation; E66.9 Obesity, unspecified; I50.9 Heart failure, unspecified; N18.9 Chronic kidney disease, unspecified; R62.7 Adult failure to thrive; K21.9 Gastro-esophageal reflux disease without esophagitis; G89.29 Other chronic pain; M54.9 Dorsalgia, unspecified; R91.1 Solitary pulmonary nodule; E11.22 Type 2 diabetes mellitus with diabetic chronic kidney disease; Z66 Do not resuscitate; Z90.710 Acquired absence of both cervix and uterus; Z95.5 Presence of coronary angioplasty implant and graft; Z99.81 Dependence on supplemental oxygen; Z88.6 Allergy status to analgesic agent; Z88.8 Allergy status to other drugs, medicaments and biological substances; Z79.84 Long term (current) use of oral hypoglycemic drugs; Z79.82 Long term (current) use of aspirin; Z87.11 Personal history of peptic ulcer disease; Z87.891 Personal history of nicotine dependence; Z83.3 Family history of diabetes mellitus
CPT/HCPCS: 36415; 71045; 71250; 80053; 81003; 82948; 83036; 83605; 83735; 83880; 84100; 84443; 84484; 85025; 85610; 85730; 87040; 87070; 93005; 94640; 94660; 94760; 97116; 97161; 97530; J0456; J0692; J1644; J1815; J1940; J2543; J3370; J7030; J7512

== ENCOUNTER 2018-05-27 17:36 | Emergency (ER) | payer MEDICARE, OTHER ==
[~2018-05-27] VITALS: Ht 167.6 cm; Wt 126.0 kg
[2018-05-27 18:04] LABS: BASOPHILS % (AUTO) 0.5 % (0-1); EOSINOPHILS % (AUTO) 0 % (0-6); HEMATOCRIT 32.7 % (35.0-45.0); HEMOGLOBIN 10.2 g/dl (12.0-16.0); LYMPHOCYTES % (AUTO) 13.9 % (21-51); MEAN CORPUSCULAR HEMOGLOBIN 27.1 PG (27.0-31.0); MEAN CORPUSCULAR HGB CONC 31.3 % (33.0-36.5); MEAN CORPUSCULAR VOLUME 86.6 FL (78-98); MEAN PLATELET VOLUME 9.1 FL (7.4-10.4); MONOCYTES # (AUTO) 0.3 X10'3 (0-0.9); MONOCYTES % (AUTO) 4.4 % (2-12); NEUTROPHILS % (AUTO) 81.2 % (42-75); PLATELET COUNT 165 X10'3 (140-440); RED BLOOD COUNT 3.78 X10'6 (4.20-5.60); RED CELL DISTRIBUTION WIDTH 18.1 % (11.5-14.5); WHITE BLOOD COUNT 7.4 X10'3 (4.5-11.0)
[2018-05-27 18:13] LABS: PARTIAL THROMBOPLASTIN TIME 23 SECONDS (22-32); PROTHROMBIN TIME 10.8 SECONDS (9.0-12.0)
[2018-05-27 18:18] LABS: ALANINE AMINOTRANSFERASE 42 U/L (12-78); ALBUMIN 2.8 G/DL (3.4-5.0); ALBUMIN/GLOBULIN RATIO 0.7 (1.1-1.5); ALKALINE PHOSPHATASE 70 IU/L (46-116); ANION GAP 7 (8-16); ANISOCYTOSIS 2+; ASPARTATE AMINO TRANSFERASE 45 U/L (10-37); BILIRUBIN,TOTAL 0.3 MG/DL (0.1-1.0); BLOOD UREA NITROGEN 35 MG/DL (7-18); BUN/CREATININE RATIO 22.7 (6.6-38.0); CHLORIDE 103 MMOL/L (99-107); CREATININE 1.54 MG/DL (0.40-0.90); GLUCOSE 241 MG/DL (70-104); PLATELET ESTIMATE NORMAL; POIKILOCYTOSIS FEW; POTASSIUM 4.8 MMOL/L (3.5-5.1); SODIUM 138 MMOL/L (135-145); TOTAL CARBON DIOXIDE 28.4 MMOL/L (24-32); TOTAL PROTEIN 6.7 G/DL (6.4-8.2); eGFR 32 ML/MIN
[2018-05-27 19:11] VITALS: BP 121/57
== END 2018-05-27 20:00 | disposition home or self-care (01) ==
LOC: ER 17:37
DX: I13.0 Hypertensive heart and chronic kidney disease with heart failure and stage 1 through stage 4 chronic kidney disease, or unspecified chronic kidney disease (principal); N18.9 Chronic kidney disease, unspecified; I50.9 Heart failure, unspecified; E11.22 Type 2 diabetes mellitus with diabetic chronic kidney disease; I48.91 Unspecified atrial fibrillation; J44.9 Chronic obstructive pulmonary disease, unspecified; R79.9 Abnormal finding of blood chemistry, unspecified; G89.29 Other chronic pain; Z90.710 Acquired absence of both cervix and uterus; Z98.890 Other specified postprocedural states; Z88.5 Allergy status to narcotic agent; Z88.8 Allergy status to other drugs, medicaments and biological substances; Z79.2 Long term (current) use of antibiotics; Z79.899 Other long term (current) drug therapy
CPT/HCPCS: 36415; 80053; 85025; 85610; 85730; 99284

== ENCOUNTER 2018-06-27 16:07 | Inpatient (IN) | payer MEDICARE, OTHER ==
[~2018-06-27] VITALS: Ht 167.6 cm; Wt 113.9 kg
[~2018-06-27 16:07] MED LIST changes: -CEFD300C3 PO
[2018-06-27] MEDS ORDERED: ipratropium/albuterol 3ml nebule NEB ONE (16:25)
[2018-06-27 17:00] LABS: BASOPHILS # (AUTO) 0.1 X10'3 (0-0.2); BASOPHILS % (AUTO) 0.8 % (0-1); EOSINOPHILS # (AUTO) 0.1 X10'3 (0-0.9); EOSINOPHILS % (AUTO) 1.4 % (0-6); HEMATOCRIT 34.4 % (35.0-45.0); HEMOGLOBIN 10.7 g/dl (12.0-16.0); LYMPHOCYTES # (AUTO) 2.5 X10'3 (1.1-4.8); LYMPHOCYTES % (AUTO) 30.6 % (21-51); MEAN CORPUSCULAR HEMOGLOBIN 26.1 PG (27.0-31.0); MEAN CORPUSCULAR VOLUME 84.4 FL (78-98); MONOCYTES # (AUTO) 0.9 X10'3 (0-0.9); MONOCYTES % (AUTO) 10.6 % (2-12); NEUTROPHILS # (AUTO) 4.7 X10'3 (1.8-7.7); NEUTROPHILS % (AUTO) 56.6 % (42-75); PLATELET COUNT 216 X10'3 (140-440); RED BLOOD COUNT 4.08 X10'6 (4.20-5.60); RED CELL DISTRIBUTION WIDTH 17.8 % (11.5-14.5); WHITE BLOOD COUNT 8.3 X10'3 (4.5-11.0)
[2018-06-27] MEDS ORDERED: azithromycin/NS 500mg/250ml 250 ML IV ONE (17:05)
[2018-06-27] MEDS ORDERED: CefTRIAXone/D5W-Rocephin 1gm 50 ML IV ONE (17:05)
[2018-06-27 17:14] LABS: D-DIMER 1.59 MG/L FEU (0-0.50); PARTIAL THROMBOPLASTIN TIME 27 SECONDS (22-32); PROTHROMBIN TIME 10.8 SECONDS (9.0-12.0)
[2018-06-27 17:15] LABS: ALANINE AMINOTRANSFERASE 22 U/L (12-78); ALBUMIN 2.9 G/DL (3.4-5.0); ALBUMIN/GLOBULIN RATIO 0.7 (1.1-1.5); ALKALINE PHOSPHATASE 84 IU/L (46-116); ANION GAP 6 (8-16); ASPARTATE AMINO TRANSFERASE 27 U/L (10-37); BILIRUBIN,TOTAL 0.3 MG/DL (0.1-1.0); BLOOD UREA NITROGEN 28 MG/DL (7-18); BUN/CREATININE RATIO 20.1 (6.6-38.0); CALCIUM 8.8 MG/DL (8.5-10.1); CHLORIDE 104 MMOL/L (99-107); CREATININE 1.39 MG/DL (0.40-0.90); GLUCOSE 116 MG/DL (70-104); POTASSIUM 3.9 MMOL/L (3.5-5.1); SODIUM 145 MMOL/L (135-145); TOTAL CARBON DIOXIDE 35.1 MMOL/L (24-32); TOTAL PROTEIN 6.9 G/DL (6.4-8.2); eGFR 36 ML/MIN
[2018-06-27 17:23] LABS: MAGNESIUM 1.7 MG/DL (1.5-2.4)
[2018-06-27] MEDS ORDERED: mag hydrox/Alum hydrox/simeth 30ml oral suspension PO PRN (17:45)
[2018-06-27] MEDS ORDERED: acetaminophen 325mg tablet PO PRN (17:45)
[2018-06-27] MEDS ORDERED: ondansetron/PF 4mg/2ml inj IV PRN (17:45)
[2018-06-27] MEDS ORDERED: magnesium hydroxide 30ml (MOM) UD suspension PO PRN (17:45)
[2018-06-27] MEDS ORDERED: normal saline 1000ml 1,000 ML IV SCH (17:45)
[2018-06-27] MEDS: ipratropium/albuterol 3ml nebule NEB SCH ×2 (19:12→23:14)
[2018-06-27] MEDS: furosemide 10 MG/1 ML 10ml inj IV SCH (21:02)
[2018-06-27] MEDS: heparin, porcine 5000 units/ml vial SQ SCH (21:03)
[2018-06-27] MEDS: carvedilol 6.25mg tablet PO SCH (21:03)
[2018-06-27 23:00] VITALS: BP 145/96
[2018-06-27] MEDS: HYDROcodone/acetaminophen 10/325mg tab PO PRN (23:40)
[2018-06-28 03:00] VITALS: BP 140/73
[2018-06-28] MEDS: ipratropium/albuterol 3ml nebule NEB SCH ×5 (03:39→20:30)
[2018-06-28 06:00] VITALS: BP 117/53
[2018-06-28 06:24] LABS: BASOPHILS # (AUTO) 0.1 X10'3 (0-0.2); BASOPHILS % (AUTO) 0.7 % (0-1); EOSINOPHILS # (AUTO) 0.1 X10'3 (0-0.9); EOSINOPHILS % (AUTO) 0.8 % (0-6); HEMATOCRIT 33.1 % (35.0-45.0); HEMOGLOBIN 10.4 g/dl (12.0-16.0); LYMPHOCYTES # (AUTO) 3.1 X10'3 (1.1-4.8); LYMPHOCYTES % (AUTO) 36.2 % (21-51); MEAN CORPUSCULAR HEMOGLOBIN 26.9 PG (27.0-31.0); MEAN CORPUSCULAR HGB CONC 31.5 % (33.0-36.5); MEAN CORPUSCULAR VOLUME 85.5 FL (78-98); MEAN PLATELET VOLUME 9.2 FL (7.4-10.4); MONOCYTES # (AUTO) 0.7 X10'3 (0-0.9); MONOCYTES % (AUTO) 8.7 % (2-12); NEUTROPHILS # (AUTO) 4.5 X10'3 (1.8-7.7); NEUTROPHILS % (AUTO) 53.6 % (42-75); PLATELET COUNT 195 X10'3 (140-440); RED BLOOD COUNT 3.87 X10'6 (4.20-5.60); WHITE BLOOD COUNT 8.4 X10'3 (4.5-11.0)
[2018-06-28 06:43] LABS: ALBUMIN 2.8 G/DL (3.4-5.0); ANION GAP 5 (8-16); BLOOD UREA NITROGEN 27 MG/DL (7-18); BUN/CREATININE RATIO 18.1 (6.6-38.0); CALCIUM 8.7 MG/DL (8.5-10.1); CHLORIDE 104 MMOL/L (99-107); CREATININE 1.49 MG/DL (0.40-0.90); GLUCOSE 142 MG/DL (70-104); POTASSIUM 3.7 MMOL/L (3.5-5.1); SODIUM 143 MMOL/L (135-145); TOTAL CARBON DIOXIDE 34.3 MMOL/L (24-32); eGFR 33 ML/MIN
[2018-06-28] MEDS: levoFLOXACIN-Levaquin 750MG/D5 150 ML IV SCH (08:04)
[2018-06-28] MEDS: CefTRIAXone/D5W-Rocephin 1gm 50 ML IV SCH (08:04)
[2018-06-28] MEDS: carvedilol 6.25mg tablet PO SCH ×2 (08:05→20:30)
[2018-06-28] MEDS: heparin, porcine 5000 units/ml vial SQ SCH ×2 (08:05→20:25)
[2018-06-28] MEDS: furosemide 10 MG/1 ML 10ml inj IV SCH ×2 (08:07→20:27)
[2018-06-28 08:59] LABS: BURR CELLS FEW; HYPOCHROMASIA 1+; PLATELET ESTIMATE NORMAL; POLYCHROMASIA FEW; SCHISTOCYTES FEW; TEAR DROP CELLS FEW
[2018-06-28 11:00] VITALS: BP 117/53
[2018-06-28] MEDS: HYDROcodone/acetaminophen 5mg/325mg tablet PO PRN (12:13)
[2018-06-28 15:00] VITALS: BP 118/49
[2018-06-28] MEDS ORDERED: albuterol 2.5 mg/0.5ml nebule NEB PRN (15:55)
[2018-06-28] MEDS ORDERED: albuterol 2.5 MG/3 ML nebule NEB PRN (16:01)
[2018-06-28] MEDS ORDERED: ipratropium 0.5 MG/2.5ML nebule IH SCH (16:05)
[2018-06-28] MEDS: pregabalin 25mg capsule PO SCH ×2 (16:38→23:26)
[2018-06-28 19:00] VITALS: BP 114/68
[2018-06-28] MEDS: tetrahydrozoline 0.05% 15ml ophthalmic drops EACHEYE SCH (20:25)
[2018-06-28] MEDS: lactobacillus rhamnosus 10,000 MMU CELLS/CAPSULE PO SCH (20:29)
[2018-06-28] MEDS: busPIRone 15mg tablet PO SCH (20:29)
[2018-06-28] MEDS: QUEtiapine 25mg tablet PO SCH (20:30)
[2018-06-28] MEDS: BUDESONIDE 0.25 MG/2 ML AMPUL.NEB IH SCH (20:30)
[2018-06-28] MEDS: losartan 25mg tablet PO SCH (20:30)
[2018-06-28] MEDS: potassium chloride 8mEq ER tablet PO SCH (20:30)
[2018-06-28] MEDS: glipizide 5mg tablet PO SCH (20:31)
[2018-06-28] MEDS: pantoprazole 40mg Tablet.DR PO SCH (20:31)
[2018-06-28] MEDS: HYDROcodone/acetaminophen 10/325mg tab PO PRN (20:44)
[2018-06-28 23:00] VITALS: BP 147/78
[2018-06-29] MEDS: HYDROcodone/acetaminophen 10/325mg tab PO PRN ×2 (02:23→20:55)
[2018-06-29 03:00] VITALS: BP 91/56
[2018-06-29] MEDS: ipratropium/albuterol 3ml nebule NEB SCH ×4 (03:00→20:33)
[2018-06-29 06:09] LABS: BASOPHILS # (AUTO) 0.1 X10'3 (0-0.2); BASOPHILS % (AUTO) 0.9 % (0-1); EOSINOPHILS # (AUTO) 0.1 X10'3 (0-0.9); EOSINOPHILS % (AUTO) 1.3 % (0-6); HEMATOCRIT 31.3 % (35.0-45.0); HEMOGLOBIN 9.8 g/dl (12.0-16.0); LYMPHOCYTES # (AUTO) 2.4 X10'3 (1.1-4.8); LYMPHOCYTES % (AUTO) 36.6 % (21-51); MEAN CORPUSCULAR HEMOGLOBIN 26.2 PG (27.0-31.0); MEAN CORPUSCULAR HGB CONC 31.3 % (33.0-36.5); MEAN CORPUSCULAR VOLUME 83.7 FL (78-98); MEAN PLATELET VOLUME 8.2 FL (7.4-10.4); MONOCYTES # (AUTO) 0.7 X10'3 (0-0.9); MONOCYTES % (AUTO) 11.3 % (2-12); NEUTROPHILS # (AUTO) 3.3 X10'3 (1.8-7.7); NEUTROPHILS % (AUTO) 49.9 % (42-75); PLATELET COUNT 183 X10'3 (140-440); RED BLOOD COUNT 3.74 X10'6 (4.20-5.60); WHITE BLOOD COUNT 6.6 X10'3 (4.5-11.0)
[2018-06-29 06:23] LABS: ALBUMIN 2.6 G/DL (3.4-5.0); ANION GAP 4 (8-16); BLOOD UREA NITROGEN 26 MG/DL (7-18); BUN/CREATININE RATIO 17.4 (6.6-38.0); CALCIUM 8.5 MG/DL (8.5-10.1); CHLORIDE 103 MMOL/L (99-107); CREATININE 1.49 MG/DL (0.40-0.90); GLUCOSE 116 MG/DL (70-104); POTASSIUM 3.6 MMOL/L (3.5-5.1); SODIUM 141 MMOL/L (135-145); TOTAL CARBON DIOXIDE 34.1 MMOL/L (24-32); eGFR 33 ML/MIN
[2018-06-29 07:06] VITALS: BP 98/42
[2018-06-29] MEDS: BUDESONIDE 0.25 MG/2 ML AMPUL.NEB IH SCH ×2 (07:52→20:33)
[2018-06-29] MEDS: losartan 25mg tablet PO SCH ×2 (08:00→20:00)
[2018-06-29] MEDS: carvedilol 6.25mg tablet PO SCH ×2 (08:00→20:49)
[2018-06-29] MEDS ORDERED: furosemide 20MG tablet PO SCH (08:00)
[2018-06-29] MEDS: furosemide 10 MG/1 ML 10ml inj IV SCH ×2 (08:00→20:48)
[2018-06-29] MEDS: heparin, porcine 5000 units/ml vial SQ SCH ×2 (08:25→20:48)
[2018-06-29] MEDS: tetrahydrozoline 0.05% 15ml ophthalmic drops EACHEYE SCH ×2 (08:26→20:48)
[2018-06-29] MEDS: CefTRIAXone/D5W-Rocephin 1gm 50 ML IV SCH (08:26)
[2018-06-29] MEDS: atorvastatin 10mg tablet PO SCH (08:26)
[2018-06-29] MEDS: pantoprazole 40mg Tablet.DR PO SCH ×2 (08:26→20:49)
[2018-06-29] MEDS: pregabalin 25mg capsule PO SCH ×3 (08:26→23:36)
[2018-06-29] MEDS: levoFLOXACIN-Levaquin 750MG/D5 150 ML IV SCH (08:27)
[2018-06-29] MEDS: ferrous sulfate 325mg tablet PO SCH (08:27)
[2018-06-29] MEDS: lactobacillus rhamnosus 10,000 MMU CELLS/CAPSULE PO SCH ×2 (08:28→20:49)
[2018-06-29] MEDS: busPIRone 15mg tablet PO SCH ×2 (08:28→20:49)
[2018-06-29] MEDS: glipizide 5mg tablet PO SCH ×2 (08:28→20:49)
[2018-06-29] MEDS: levoTHYROXINE 75mcg tablet PO SCH (08:28)
[2018-06-29] MEDS: potassium chloride 8mEq ER tablet PO SCH ×2 (08:36→20:49)
[2018-06-29 11:00] VITALS: BP 96/74
[2018-06-29 16:00] VITALS: BP 109/47
[2018-06-29 18:00] VITALS: BP 110/46
[2018-06-29] MEDS: QUEtiapine 25mg tablet PO SCH (20:49)
[2018-06-29 23:00] VITALS: BP 95/62
[2018-06-30] VITALS (7 sets, daily range): BP systolic 90–116; BP diastolic 51–73
[2018-06-30] MEDS: HYDROcodone/acetaminophen 10/325mg tab PO PRN ×2 (01:11→20:54)
[2018-06-30] MEDS: ipratropium/albuterol 3ml nebule NEB SCH ×4 (02:33→20:29)
[2018-06-30 05:13] LABS: BASOPHILS % (AUTO) 0.4 % (0-1); EOSINOPHILS # (AUTO) 0.1 X10'3 (0-0.9); EOSINOPHILS % (AUTO) 0.7 % (0-6); HEMATOCRIT 33.7 % (35.0-45.0); HEMOGLOBIN 10.8 g/dl (12.0-16.0); LYMPHOCYTES # (AUTO) 1.7 X10'3 (1.1-4.8); LYMPHOCYTES % (AUTO) 18.5 % (21-51); MEAN CORPUSCULAR HEMOGLOBIN 26.6 PG (27.0-31.0); MEAN CORPUSCULAR VOLUME 83.3 FL (78-98); MEAN PLATELET VOLUME 9.2 FL (7.4-10.4); MONOCYTES # (AUTO) 0.5 X10'3 (0-0.9); MONOCYTES % (AUTO) 5.8 % (2-12); NEUTROPHILS % (AUTO) 74.6 % (42-75); PLATELET COUNT 190 X10'3 (140-440); RED BLOOD COUNT 4.04 X10'6 (4.20-5.60); RED CELL DISTRIBUTION WIDTH 17.6 % (11.5-14.5); WHITE BLOOD COUNT 9.4 X10'3 (4.5-11.0)
[2018-06-30 05:31] LABS: ALBUMIN 2.8 G/DL (3.4-5.0); ANION GAP 7 (8-16); BLOOD UREA NITROGEN 29 MG/DL (7-18); BUN/CREATININE RATIO 17.4 (6.6-38.0); CALCIUM 8.7 MG/DL (8.5-10.1); CHLORIDE 103 MMOL/L (99-107); CREATININE 1.67 MG/DL (0.40-0.90); GLUCOSE 176 MG/DL (70-104); POTASSIUM 4.2 MMOL/L (3.5-5.1); SODIUM 140 MMOL/L (135-145); eGFR 29 ML/MIN
[2018-06-30] MEDS: pantoprazole 40mg Tablet.DR PO SCH ×2 (07:58→20:44)
[2018-06-30] MEDS: BUDESONIDE 0.25 MG/2 ML AMPUL.NEB IH SCH ×2 (07:58→20:29)
[2018-06-30] MEDS: losartan 25mg tablet PO SCH ×2 (08:00→20:44)
[2018-06-30] MEDS: carvedilol 6.25mg tablet PO SCH ×2 (08:00→16:28)
[2018-06-30] MEDS: tetrahydrozoline 0.05% 15ml ophthalmic drops EACHEYE SCH ×2 (08:00→20:43)
[2018-06-30] MEDS: furosemide 10 MG/1 ML 10ml inj IV SCH ×2 (08:00→16:28)
[2018-06-30] MEDS: ferrous sulfate 325mg tablet PO SCH (08:08)
[2018-06-30] MEDS: CefTRIAXone/D5W-Rocephin 1gm 50 ML IV SCH (08:09)
[2018-06-30] MEDS: pregabalin 25mg capsule PO SCH ×2 (08:11→15:52)
[2018-06-30] MEDS: busPIRone 15mg tablet PO SCH ×2 (08:11→20:49)
[2018-06-30] MEDS: atorvastatin 10mg tablet PO SCH (08:11)
[2018-06-30] MEDS: potassium chloride 8mEq ER tablet PO SCH ×2 (08:12→20:49)
[2018-06-30] MEDS: glipizide 5mg tablet PO SCH ×2 (08:12→20:50)
[2018-06-30] MEDS: levoTHYROXINE 75mcg tablet PO SCH (08:12)
[2018-06-30] MEDS: lactobacillus rhamnosus 10,000 MMU CELLS/CAPSULE PO SCH ×2 (08:12→20:49)
[2018-06-30] MEDS: heparin, porcine 5000 units/ml vial SQ SCH ×2 (08:13→20:44)
[2018-06-30] MEDS: loperamide 2mg capsule PO PRN ×2 (14:14→20:50)
[2018-06-30] MEDS: HYDROcodone/acetaminophen 5mg/325mg tablet PO PRN (14:18)
[2018-06-30] MEDS: QUEtiapine 25mg tablet PO SCH (20:50)
[2018-07-01] MEDS: pregabalin 25mg capsule PO SCH ×2 (00:04→08:55)
[2018-07-01] MEDS: ipratropium/albuterol 3ml nebule NEB SCH ×3 (02:41→14:50)
[2018-07-01 03:00] VITALS: BP 97/49
[2018-07-01 06:00] VITALS: BP 88/58
[2018-07-01 06:48] LABS: BASOPHILS % (AUTO) 0.4 % (0-1); EOSINOPHILS # (AUTO) 0.1 X10'3 (0-0.9); EOSINOPHILS % (AUTO) 2.2 % (0-6); HEMATOCRIT 32.6 % (35.0-45.0); HEMOGLOBIN 10.5 g/dl (12.0-16.0); LYMPHOCYTES # (AUTO) 2.4 X10'3 (1.1-4.8); LYMPHOCYTES % (AUTO) 37.1 % (21-51); MEAN CORPUSCULAR HEMOGLOBIN 26.6 PG (27.0-31.0); MEAN CORPUSCULAR HGB CONC 32.1 % (33.0-36.5); MEAN CORPUSCULAR VOLUME 82.9 FL (78-98); MEAN PLATELET VOLUME 8.8 FL (7.4-10.4); MONOCYTES # (AUTO) 0.6 X10'3 (0-0.9); MONOCYTES % (AUTO) 9.3 % (2-12); NEUTROPHILS # (AUTO) 3.4 X10'3 (1.8-7.7); PLATELET COUNT 183 X10'3 (140-440); RED BLOOD COUNT 3.93 X10'6 (4.20-5.60); RED CELL DISTRIBUTION WIDTH 17.9 % (11.5-14.5); WHITE BLOOD COUNT 6.6 X10'3 (4.5-11.0)
[2018-07-01 06:56] LABS: ALBUMIN 2.9 G/DL (3.4-5.0); ANION GAP 7 (8-16); BLOOD UREA NITROGEN 31 MG/DL (7-18); BUN/CREATININE RATIO 18.3 (6.6-38.0); CALCIUM 8.5 MG/DL (8.5-10.1); CHLORIDE 102 MMOL/L (99-107); CREATININE 1.69 MG/DL (0.40-0.90); GLUCOSE 122 MG/DL (70-104); POTASSIUM 3.9 MMOL/L (3.5-5.1); SODIUM 141 MMOL/L (135-145); eGFR 29 ML/MIN
[2018-07-01 07:27] VITALS: BP 132/58
[2018-07-01] MEDS ORDERED: levoFLOXACIN 750MG TABLET PO SCH (08:00)
[2018-07-01] MEDS: BUDESONIDE 0.25 MG/2 ML AMPUL.NEB IH SCH (08:46)
[2018-07-01] MEDS: tetrahydrozoline 0.05% 15ml ophthalmic drops EACHEYE SCH (08:54)
[2018-07-01] MEDS: furosemide 10 MG/1 ML 10ml inj IV SCH (08:54)
[2018-07-01] MEDS: pantoprazole 40mg Tablet.DR PO SCH (08:54)
[2018-07-01] MEDS: ferrous sulfate 325mg tablet PO SCH (08:54)
[2018-07-01] MEDS: CefTRIAXone/D5W-Rocephin 1gm 50 ML IV SCH (08:54)
[2018-07-01] MEDS: lactobacillus rhamnosus 10,000 MMU CELLS/CAPSULE PO SCH (08:54)
[2018-07-01] MEDS: busPIRone 15mg tablet PO SCH (08:55)
[2018-07-01] MEDS: potassium chloride 8mEq ER tablet PO SCH (08:55)
[2018-07-01] MEDS: atorvastatin 10mg tablet PO SCH (08:55)
[2018-07-01] MEDS: glipizide 5mg tablet PO SCH (08:55)
[2018-07-01] MEDS: carvedilol 6.25mg tablet PO SCH (08:55)
[2018-07-01] MEDS: levoTHYROXINE 75mcg tablet PO SCH (08:55)
[2018-07-01] MEDS: losartan 25mg tablet PO SCH (08:55)
[2018-07-01] MEDS: heparin, porcine 5000 units/ml vial SQ SCH (09:10)
[2018-07-01] MEDS: HYDROcodone/acetaminophen 10/325mg tab PO PRN (10:29)
[2018-07-01 11:00] VITALS: BP 115/48
[2018-07-01] MEDS ORDERED: FURO-149 PO (12:41)
[2018-07-01] MEDS ORDERED: LEVO500T2 PO (12:42)
== END 2018-07-01 15:05 | disposition home health service (06) | DRG 177 ==
LOC: ER 16:07 → ED HOLD 17:45 → PCU 3S 21:30
PROVIDERS: ADMIT Family Medicine; ATTEND Family Medicine
PROC: 5A09357 Assistance with Respiratory Ventilation, Less than 24 Consecutive Hours, Continuous Positive Airway Pressure (ICD-10-PCS; principal; 2018-07-01)
DX: J69.0 Pneumonitis due to inhalation of food and vomit (principal); J96.20 Acute and chronic respiratory failure, unspecified whether with hypoxia or hypercapnia; I50.23 Acute on chronic systolic (congestive) heart failure; I13.0 Hypertensive heart and chronic kidney disease with heart failure and stage 1 through stage 4 chronic kidney disease, or unspecified chronic kidney disease; Z68.41 Body mass index [BMI] 40.0-44.9, adult; I48.91 Unspecified atrial fibrillation; G47.33 Obstructive sleep apnea (adult) (pediatric); I44.7 Left bundle-branch block, unspecified; J44.9 Chronic obstructive pulmonary disease, unspecified; N18.9 Chronic kidney disease, unspecified; K21.9 Gastro-esophageal reflux disease without esophagitis; E11.22 Type 2 diabetes mellitus with diabetic chronic kidney disease; I25.10 Atherosclerotic heart disease of native coronary artery without angina pectoris; M54.9 Dorsalgia, unspecified; G89.29 Other chronic pain; F41.9 Anxiety disorder, unspecified; F32.9 Major depressive disorder, single episode, unspecified; Z90.710 Acquired absence of both cervix and uterus; Z95.5 Presence of coronary angioplasty implant and graft; Z88.5 Allergy status to narcotic agent; Z79.4 Long term (current) use of insulin; Z79.899 Other long term (current) drug therapy; Z87.01 Personal history of pneumonia (recurrent); Z83.3 Family history of diabetes mellitus
CPT/HCPCS: 36415; 71045; 80048; 80053; 82948; 83735; 83880; 84484; 85025; 85379; 85610; 85730; 87070; 92616; 93005; 94640; 94760; 96365; 97110; 97116; 97162; 97530; 99285; J0456; J0696; J1644; J1940; J1956; J7030; J7611

== ENCOUNTER 2018-08-24 10:46 | Inpatient (IN) | payer MEDICARE, OTHER ==
[~2018-08-24] VITALS: Ht 167.6 cm; Wt 107.5 kg
[~2018-08-24 10:46] MED LIST changes: +FURO-149 PO; -FURO40TA4 PO; +HYDR-4383 PO; -HYDR-569 PO
[2018-08-24 12:02] LABS: BASOPHILS % (AUTO) 0.2 % (0-1); EOSINOPHILS # (AUTO) 0.1 X10'3 (0-0.9); EOSINOPHILS % (AUTO) 1.4 % (0-6); HEMATOCRIT 34.2 % (35.0-45.0); HEMOGLOBIN 10.7 g/dl (12.0-16.0); LYMPHOCYTES # (AUTO) 1.5 X10'3 (1.1-4.8); LYMPHOCYTES % (AUTO) 23.6 % (21-51); MEAN CORPUSCULAR HEMOGLOBIN 26.8 PG (27.0-31.0); MEAN CORPUSCULAR HGB CONC 31.4 % (33.0-36.5); MEAN CORPUSCULAR VOLUME 85.3 FL (78-98); MEAN PLATELET VOLUME 8.5 FL (7.4-10.4); MONOCYTES # (AUTO) 0.6 X10'3 (0-0.9); MONOCYTES % (AUTO) 9.2 % (2-12); NEUTROPHILS # (AUTO) 4.3 X10'3 (1.8-7.7); NEUTROPHILS % (AUTO) 65.6 % (42-75); PLATELET COUNT 208 X10'3 (140-440); WHITE BLOOD COUNT 6.5 X10'3 (4.5-11.0)
[2018-08-24 12:19] LABS: ALANINE AMINOTRANSFERASE 23 U/L (12-78); ALBUMIN 2.9 G/DL (3.4-5.0); ALBUMIN/GLOBULIN RATIO 0.7 (1.1-1.5); ALKALINE PHOSPHATASE 78 IU/L (46-116); ANION GAP 6 (8-16); ASPARTATE AMINO TRANSFERASE 25 U/L (10-37); BILIRUBIN,TOTAL 0.4 MG/DL (0.1-1.0); BLOOD UREA NITROGEN 28 MG/DL (7-18); BUN/CREATININE RATIO 20.9 (6.6-38.0); CALCIUM 9.7 MG/DL (8.5-10.1); CHLORIDE 102 MMOL/L (99-107); CREATININE 1.34 MG/DL (0.40-0.90); GLUCOSE 222 MG/DL (70-104); SODIUM 140 MMOL/L (135-145); TOTAL CARBON DIOXIDE 32.5 MMOL/L (24-32); TOTAL PROTEIN 7.1 G/DL (6.4-8.2); eGFR 38 ML/MIN
[2018-08-24 12:28] LABS: D-DIMER 1.17 MG/L FEU (0-0.50)
[2018-08-24] MEDS ORDERED: iohexol 350MG/ML 100ml bottle IV ONE (12:39)
[2018-08-24] MEDS ORDERED: azithromycin 250mg tablet PO ONE (13:10)
[2018-08-24] MEDS ORDERED: CefTRIAXone 2gm/D5W 50ml 50 ML IV ONE (13:10)
[2018-08-24] MEDS: MESSAGE TO NURSING PO NR (13:27)
[2018-08-24] MEDS ORDERED: UMEC62.5 (13:48)
[2018-08-24] MEDS ORDERED: FURO-149 PO (13:48)
[2018-08-24] MEDS ORDERED: ADV50100 IH (13:48)
[2018-08-24] MEDS ORDERED: LOSA25TA96 PO (13:48)
[2018-08-24 14:30] VITALS: BP 153/66
[2018-08-24] MEDS ORDERED: potassium Cl 20 mEq SR tablet PO PRN ×2 (14:50)
[2018-08-24] MEDS ORDERED: ondansetron/PF 4mg/2ml inj IV PRN (14:50)
[2018-08-24] MEDS ORDERED: magnesium 4gm in 100ml NS 100 ML IV PRN (14:50)
[2018-08-24] MEDS ORDERED: dextrose 50%-water 50ml dispensing syringe IV PRN ×2 (14:50)
[2018-08-24] MEDS ORDERED: magnesium Cl slow-release 64mg tablet PO PRN (14:50)
[2018-08-24] MEDS ORDERED: dextrose ORAL solution 15 GM/59 ML bottle PO PRN ×2 (14:50)
[2018-08-24] MEDS ORDERED: glucagon, human recombinant 1mg kit SUBCUT PRN (14:50)
[2018-08-24] MEDS ORDERED: MESSAGE TO PHARMACY PO ONE (14:50)
[2018-08-24] MEDS ORDERED: magnesium 1gm/100ml D5W IVPB 100 ML IV PRN (14:50)
[2018-08-24] MEDS ORDERED: potassium Cl 40MEQ/NS 500ml 500 ML IV PRN ×2 (14:50)
[2018-08-24] MEDS ORDERED: naphazoline/pheniramine eye 1 DROP BOTTLE EACHEYE PRN (14:55)
[2018-08-24] MEDS: furosemide 10 MG/1 ML 10ml inj IV SCH (15:16)
[2018-08-24] MEDS: albuterol 2.5 MG/3 ML nebule NEB SCH ×3 (16:15→23:30)
[2018-08-24 19:00] VITALS: BP 128/51
[2018-08-24] MEDS: BUDESONIDE 0.25 MG/2 ML AMPUL.NEB IH SCH (19:55)
[2018-08-24] MEDS ORDERED: BUDESONIDE IH SCH (20:00)
[2018-08-24] MEDS: QUEtiapine 25mg tablet PO SCH (20:26)
[2018-08-24] MEDS: carvedilol 6.25mg tablet PO SCH (20:26)
[2018-08-24] MEDS: busPIRone 15mg tablet PO SCH (20:26)
[2018-08-24] MEDS: potassium chloride 8mEq ER tablet PO SCH (20:26)
[2018-08-24] MEDS: heparin, porcine 5000 units/ml vial SQ SCH (20:26)
[2018-08-24] MEDS: HYDROcodone/acetaminophen 5mg/325mg tablet PO PRN (20:36)
[2018-08-24] MEDS: insulin glargine (Lantus) pen - multi-dose SQ SCH (21:00)
[2018-08-24] MEDS: acetaminophen 325mg tablet PO PRN (22:57)
[2018-08-24 23:00] VITALS: BP 154/63
[2018-08-25 03:00] VITALS: BP 144/66
[2018-08-25] MEDS: HYDROcodone/acetaminophen 5mg/325mg tablet PO PRN ×4 (03:32→21:55)
[2018-08-25] MEDS: albuterol 2.5 MG/3 ML nebule NEB SCH ×5 (03:32→23:02)
[2018-08-25 05:04] LABS: BASOPHILS % (AUTO) 0.4 % (0-1); EOSINOPHILS # (AUTO) 0.1 X10'3 (0-0.9); EOSINOPHILS % (AUTO) 1.7 % (0-6); HEMATOCRIT 33.4 % (35.0-45.0); HEMOGLOBIN 10.6 g/dl (12.0-16.0); LYMPHOCYTES % (AUTO) 37.1 % (21-51); MEAN CORPUSCULAR HGB CONC 31.8 % (33.0-36.5); MEAN PLATELET VOLUME 9.1 FL (7.4-10.4); MONOCYTES # (AUTO) 0.7 X10'3 (0-0.9); MONOCYTES % (AUTO) 8.4 % (2-12); NEUTROPHILS # (AUTO) 4.2 X10'3 (1.8-7.7); NEUTROPHILS % (AUTO) 52.4 % (42-75); PLATELET COUNT 205 X10'3 (140-440); RED BLOOD COUNT 3.93 X10'6 (4.20-5.60); RED CELL DISTRIBUTION WIDTH 18.1 % (11.5-14.5)
[2018-08-25 05:24] LABS: ALBUMIN 2.9 G/DL (3.4-5.0); ANION GAP 8 (8-16); BLOOD UREA NITROGEN 25 MG/DL (7-18); BUN/CREATININE RATIO 17.7 (6.6-38.0); CALCIUM 9.4 MG/DL (8.5-10.1); CHLORIDE 102 MMOL/L (99-107); CREATININE 1.41 MG/DL (0.40-0.90); GLUCOSE 161 MG/DL (70-104); MAGNESIUM 1.7 MG/DL (1.5-2.4); POTASSIUM 3.7 MMOL/L (3.5-5.1); SODIUM 142 MMOL/L (135-145); TOTAL CARBON DIOXIDE 31.9 MMOL/L (24-32); eGFR 36 ML/MIN
[2018-08-25] MEDS: potassium chloride 8mEq ER tablet PO SCH ×2 (07:20→21:14)
[2018-08-25] MEDS: losartan 25mg tablet PO SCH (07:21)
[2018-08-25] MEDS: busPIRone 15mg tablet PO SCH ×2 (07:21→21:14)
[2018-08-25] MEDS: carvedilol 6.25mg tablet PO SCH ×2 (07:21→21:13)
[2018-08-25] MEDS: levoTHYROXINE 75mcg tablet PO SCH (07:21)
[2018-08-25] MEDS: atorvastatin 10mg tablet PO SCH (07:21)
[2018-08-25] MEDS: ferrous sulfate 325mg tablet PO SCH (07:22)
[2018-08-25] MEDS: furosemide 10 MG/1 ML 10ml inj IV SCH (07:29)
[2018-08-25] MEDS: heparin, porcine 5000 units/ml vial SQ SCH ×2 (07:31→21:14)
[2018-08-25] MEDS: BUDESONIDE 0.25 MG/2 ML AMPUL.NEB IH SCH ×2 (07:33→20:17)
[2018-08-25] MEDS: CefTRIAXone 2gm/D5W 50ml 50 ML IV SCH (07:35)
[2018-08-25] MEDS: K and/or MAG REPLACEMENT MC SCH (08:00)
[2018-08-25 10:43] VITALS: BP 122/46
[2018-08-25] MEDS: mag hydrox/Alum hydrox/simeth 30ml oral suspension PO PRN ×2 (14:02→23:17)
[2018-08-25 14:30] VITALS: BP 125/48
[2018-08-25 15:00] VITALS: BP 139/53
[2018-08-25] MEDS: calcium carbonate 500mg chew tablet PO SCH (17:39)
[2018-08-25 19:00] VITALS: BP 142/55
[2018-08-25] MEDS: insulin glargine (Lantus) pen - multi-dose SQ SCH (21:00)
[2018-08-25] MEDS: QUEtiapine 25mg tablet PO SCH (21:14)
[2018-08-25 23:00] VITALS: BP 115/93
[2018-08-26] VITALS (7 sets, daily range): BP systolic 103–161; BP diastolic 56–76
[2018-08-26] MEDS: albuterol 2.5 MG/3 ML nebule NEB SCH ×2 (03:16→07:23)
[2018-08-26] MEDS: HYDROcodone/acetaminophen 5mg/325mg tablet PO PRN ×3 (03:20→19:16)
[2018-08-26] MEDS: BUDESONIDE 0.25 MG/2 ML AMPUL.NEB IH SCH ×2 (07:23→19:33)
[2018-08-26] MEDS: furosemide 10 MG/1 ML 10ml inj IV SCH ×2 (07:24→20:00)
[2018-08-26] MEDS: losartan 25mg tablet PO SCH (07:24)
[2018-08-26] MEDS: atorvastatin 10mg tablet PO SCH (07:24)
[2018-08-26] MEDS: heparin, porcine 5000 units/ml vial SQ SCH ×2 (07:24→20:50)
[2018-08-26] MEDS: carvedilol 6.25mg tablet PO SCH ×2 (07:25→20:51)
[2018-08-26] MEDS: potassium chloride 8mEq ER tablet PO SCH ×2 (07:25→20:51)
[2018-08-26] MEDS: busPIRone 15mg tablet PO SCH ×2 (07:25→20:51)
[2018-08-26] MEDS: ferrous sulfate 325mg tablet PO SCH (07:25)
[2018-08-26] MEDS: levoTHYROXINE 75mcg tablet PO SCH (07:25)
[2018-08-26] MEDS: lactobacillus rhamnosus 10,000 MMU CELLS/CAPSULE PO SCH ×2 (07:25→20:49)
[2018-08-26] MEDS: CefTRIAXone 2gm/D5W 50ml 50 ML IV SCH (07:26)
[2018-08-26] MEDS: calcium carbonate 500mg chew tablet PO SCH ×3 (07:52→17:47)
[2018-08-26] MEDS: K and/or MAG REPLACEMENT MC SCH (08:00)
[2018-08-26 08:11] LABS: ALBUMIN 2.9 G/DL (3.4-5.0); ANION GAP 5 (8-16); BLOOD UREA NITROGEN 26 MG/DL (7-18); BUN/CREATININE RATIO 17.3 (6.6-38.0); CALCIUM 9.3 MG/DL (8.5-10.1); CHLORIDE 101 MMOL/L (99-107); GLUCOSE 147 MG/DL (70-104); MAGNESIUM 1.9 MG/DL (1.5-2.4); POTASSIUM 3.8 MMOL/L (3.5-5.1); SODIUM 140 MMOL/L (135-145); TOTAL CARBON DIOXIDE 33.6 MMOL/L (24-32); eGFR 33 ML/MIN
[2018-08-26 08:27] LABS: BASOPHILS % (AUTO) 0.3 % (0-1); EOSINOPHILS # (AUTO) 0.2 X10'3 (0-0.9); EOSINOPHILS % (AUTO) 2.6 % (0-6); HEMATOCRIT 33.2 % (35.0-45.0); HEMOGLOBIN 10.6 g/dl (12.0-16.0); LYMPHOCYTES # (AUTO) 2.8 X10'3 (1.1-4.8); LYMPHOCYTES % (AUTO) 39.1 % (21-51); MEAN CORPUSCULAR HGB CONC 31.8 % (33.0-36.5); MEAN CORPUSCULAR VOLUME 84.9 FL (78-98); MEAN PLATELET VOLUME 9.3 FL (7.4-10.4); MONOCYTES # (AUTO) 0.7 X10'3 (0-0.9); MONOCYTES % (AUTO) 9.7 % (2-12); NEUTROPHILS # (AUTO) 3.5 X10'3 (1.8-7.7); NEUTROPHILS % (AUTO) 48.3 % (42-75); PLATELET COUNT 205 X10'3 (140-440); RED BLOOD COUNT 3.91 X10'6 (4.20-5.60); RED CELL DISTRIBUTION WIDTH 17.5 % (11.5-14.5); WHITE BLOOD COUNT 7.2 X10'3 (4.5-11.0)
[2018-08-26] MEDS ORDERED: ipratropium/albuterol 3ml nebule NEB PRN (08:45)
[2018-08-26] MEDS: MESSAGE TO NURSING PO NR (10:00)
[2018-08-26] MEDS: ipratropium/albuterol 3ml nebule NEB SCH ×4 (11:24→22:46)
[2018-08-26] MEDS: QUEtiapine 25mg tablet PO SCH (20:50)
[2018-08-26] MEDS: insulin glargine (Lantus) pen - multi-dose SQ SCH (21:00)
[2018-08-26] MEDS: acetaminophen 325mg tablet PO PRN (22:36)
[2018-08-27] VITALS (7 sets, daily range): BP systolic 138–170; BP diastolic 51–77
[2018-08-27] MEDS: HYDROcodone/acetaminophen 5mg/325mg tablet PO PRN ×4 (01:03→19:42)
[2018-08-27] MEDS: temazepam 15mg capsule PO PRN (01:05)
[2018-08-27] MEDS: heparin, porcine 5000 units/ml vial SQ SCH ×2 (07:24→19:42)
[2018-08-27] MEDS: furosemide 10 MG/1 ML 10ml inj IV SCH ×3 (07:26→19:31)
[2018-08-27] MEDS: ferrous sulfate 325mg tablet PO SCH (07:28)
[2018-08-27] MEDS: losartan 25mg tablet PO SCH (07:31)
[2018-08-27] MEDS: calcium carbonate 500mg chew tablet PO SCH ×3 (07:31→17:30)
[2018-08-27] MEDS: busPIRone 15mg tablet PO SCH ×2 (07:31→19:41)
[2018-08-27] MEDS: levoTHYROXINE 75mcg tablet PO SCH (07:32)
[2018-08-27] MEDS: atorvastatin 10mg tablet PO SCH (07:32)
[2018-08-27] MEDS: carvedilol 6.25mg tablet PO SCH ×2 (07:32→19:41)
[2018-08-27] MEDS: potassium chloride 8mEq ER tablet PO SCH ×2 (07:32→19:41)
[2018-08-27] MEDS: CefTRIAXone 2gm/D5W 50ml 50 ML IV SCH (07:33)
[2018-08-27] MEDS: lactobacillus rhamnosus 10,000 MMU CELLS/CAPSULE PO SCH ×2 (07:34→19:41)
[2018-08-27] MEDS: K and/or MAG REPLACEMENT MC SCH (08:00)
[2018-08-27] MEDS: ipratropium/albuterol 3ml nebule NEB SCH ×5 (08:36→23:00)
[2018-08-27] MEDS: BUDESONIDE 0.25 MG/2 ML AMPUL.NEB IH SCH ×2 (08:36→19:02)
[2018-08-27] MEDS: predniSONE 20 mg tablet PO SCH (11:15)
[2018-08-27] MEDS: ketorolac trometh. 30mg/ml inj. IV PRN ×2 (15:13→22:23)
[2018-08-27] MEDS: morphine 2 MG/ML inj. syringe IV PRN ×2 (16:31→22:24)
[2018-08-27] MEDS: acetaminophen 325mg tablet PO PRN (17:34)
[2018-08-27] MEDS: cyclobenzaprine 10mg tablet PO PRN (19:42)
[2018-08-27] MEDS: QUEtiapine 25mg tablet PO SCH (20:53)
[2018-08-27] MEDS: insulin glargine (Lantus) pen - multi-dose SQ SCH (20:53)
[2018-08-27] MEDS: HYDROmorphone 1 mg/ml syringe IV PRN (23:39)
[2018-08-27] MEDS: pregabalin 75mg capsule PO SCH (23:40)
[2018-08-27] MEDS: mag hydrox/Alum hydrox/simeth 30ml oral suspension PO PRN (23:45)
[2018-08-28] VITALS (7 sets, daily range): BP systolic 116–157; BP diastolic 43–79
[2018-08-28] MEDS: temazepam 15mg capsule PO PRN (01:25)
[2018-08-28] MEDS: HYDROcodone/acetaminophen 5mg/325mg tablet PO PRN ×2 (01:26→13:34)
[2018-08-28] MEDS: HYDROmorphone 1 mg/ml syringe IV PRN (06:37)
[2018-08-28] MEDS: ipratropium/albuterol 3ml nebule NEB SCH ×4 (06:55→20:26)
[2018-08-28] MEDS: BUDESONIDE 0.25 MG/2 ML AMPUL.NEB IH SCH ×2 (06:56→20:27)
[2018-08-28 06:58] LABS: BASOPHILS % (AUTO) 0.5 % (0-1); EOSINOPHILS # (AUTO) 0.2 X10'3 (0-0.9); EOSINOPHILS % (AUTO) 2.4 % (0-6); HEMATOCRIT 36.6 % (35.0-45.0); HEMOGLOBIN 11.7 g/dl (12.0-16.0); LYMPHOCYTES % (AUTO) 35.2 % (21-51); MEAN CORPUSCULAR HEMOGLOBIN 27.1 PG (27.0-31.0); MEAN CORPUSCULAR HGB CONC 31.9 % (33.0-36.5); MEAN CORPUSCULAR VOLUME 85.1 FL (78-98); MEAN PLATELET VOLUME 9.3 FL (7.4-10.4); MONOCYTES # (AUTO) 0.8 X10'3 (0-0.9); NEUTROPHILS # (AUTO) 4.5 X10'3 (1.8-7.7); NEUTROPHILS % (AUTO) 52.9 % (42-75); PLATELET COUNT 231 X10'3 (140-440); RED BLOOD COUNT 4.31 X10'6 (4.20-5.60); RED CELL DISTRIBUTION WIDTH 18.1 % (11.5-14.5); WHITE BLOOD COUNT 8.5 X10'3 (4.5-11.0)
[2018-08-28 07:22] LABS: ALBUMIN 3.3 G/DL (3.4-5.0); ANION GAP 8 (8-16); BLOOD UREA NITROGEN 30 MG/DL (7-18); BUN/CREATININE RATIO 16.2 (6.6-38.0); CALCIUM 9.9 MG/DL (8.5-10.1); CHLORIDE 97 MMOL/L (99-107); CREATININE 1.85 MG/DL (0.40-0.90); GLUCOSE 133 MG/DL (70-104); MAGNESIUM 2.2 MG/DL (1.5-2.4); SODIUM 138 MMOL/L (135-145); TOTAL CARBON DIOXIDE 33.2 MMOL/L (24-32); eGFR 26 ML/MIN
[2018-08-28] MEDS: K and/or MAG REPLACEMENT MC SCH (08:00)
[2018-08-28] MEDS: busPIRone 15mg tablet PO SCH ×2 (08:00→19:06)
[2018-08-28] MEDS: CefTRIAXone 2gm/D5W 50ml 50 ML IV SCH (09:16)
[2018-08-28] MEDS: heparin, porcine 5000 units/ml vial SQ SCH ×2 (09:17→19:06)
[2018-08-28] MEDS: pregabalin 75mg capsule PO SCH ×2 (09:17→19:06)
[2018-08-28] MEDS: losartan 25mg tablet PO SCH (09:17)
[2018-08-28] MEDS: lactobacillus rhamnosus 10,000 MMU CELLS/CAPSULE PO SCH ×2 (09:17→19:06)
[2018-08-28] MEDS: calcium carbonate 500mg chew tablet PO SCH ×3 (09:17→19:17)
[2018-08-28] MEDS: predniSONE 20 mg tablet PO SCH (09:18)
[2018-08-28] MEDS: cyclobenzaprine 10mg tablet PO PRN (09:18)
[2018-08-28] MEDS: potassium chloride 8mEq ER tablet PO SCH ×2 (09:18→19:06)
[2018-08-28] MEDS: levoTHYROXINE 75mcg tablet PO SCH (09:19)
[2018-08-28] MEDS: ferrous sulfate 325mg tablet PO SCH (09:19)
[2018-08-28] MEDS: atorvastatin 10mg tablet PO SCH (09:19)
[2018-08-28] MEDS: carvedilol 6.25mg tablet PO SCH ×2 (09:19→19:06)
[2018-08-28] MEDS: furosemide 10 MG/1 ML 10ml inj IV SCH (09:20)
[2018-08-28] MEDS ORDERED: ZAR2.5T PO (10:14)
[2018-08-28] MEDS ORDERED: PRED20TA PO (10:14)
[2018-08-28] MEDS: insulin Lispro (HumaLOG) vial - multi-dose SQ SCH ×3 (13:38→21:04)
[2018-08-28] MEDS: ketorolac trometh. 30mg/ml inj. IV PRN ×2 (16:26→23:21)
[2018-08-28] MEDS: morphine 2 MG/ML inj. syringe IV PRN (20:48)
[2018-08-28] MEDS: QUEtiapine 25mg tablet PO SCH (20:48)
[2018-08-28] MEDS: insulin glargine (Lantus) pen - multi-dose SQ SCH (21:03)
[2018-08-29] MEDS: HYDROmorphone 1 mg/ml syringe IV PRN ×4 (01:55→22:36)
[2018-08-29 02:00] VITALS: BP 137/57
[2018-08-29 06:00] VITALS: BP 104/58
[2018-08-29 06:57] LABS: BASOPHILS # (AUTO) 0.1 X10'3 (0-0.2); BASOPHILS % (AUTO) 1.2 % (0-1); EOSINOPHILS % (AUTO) 0.1 % (0-6); HEMATOCRIT 38.2 % (35.0-45.0); HEMOGLOBIN 11.9 g/dl (12.0-16.0); LYMPHOCYTES # (AUTO) 2.6 X10'3 (1.1-4.8); LYMPHOCYTES % (AUTO) 28.4 % (21-51); MEAN CORPUSCULAR HEMOGLOBIN 26.8 PG (27.0-31.0); MEAN CORPUSCULAR HGB CONC 31.3 % (33.0-36.5); MEAN CORPUSCULAR VOLUME 85.5 FL (78-98); MEAN PLATELET VOLUME 8.6 FL (7.4-10.4); MONOCYTES # (AUTO) 0.6 X10'3 (0-0.9); MONOCYTES % (AUTO) 6.1 % (2-12); NEUTROPHILS % (AUTO) 64.2 % (42-75); PLATELET COUNT 224 X10'3 (140-440); RED BLOOD COUNT 4.46 X10'6 (4.20-5.60); RED CELL DISTRIBUTION WIDTH 18.1 % (11.5-14.5); WHITE BLOOD COUNT 9.3 X10'3 (4.5-11.0)
[2018-08-29] MEDS: BUDESONIDE 0.25 MG/2 ML AMPUL.NEB IH SCH ×2 (07:09→20:13)
[2018-08-29] MEDS: ipratropium/albuterol 3ml nebule NEB SCH ×4 (07:10→20:14)
[2018-08-29 07:49] LABS: ALBUMIN 3.4 G/DL (3.4-5.0); ANION GAP 11 (8-16); BLOOD UREA NITROGEN 38 MG/DL (7-18); BUN/CREATININE RATIO 21.1 (6.6-38.0); CALCIUM 9.8 MG/DL (8.5-10.1); CHLORIDE 96 MMOL/L (99-107); GLUCOSE 143 MG/DL (70-104); MAGNESIUM 2.3 MG/DL (1.5-2.4); POTASSIUM 4.8 MMOL/L (3.5-5.1); SODIUM 135 MMOL/L (135-145); TOTAL CARBON DIOXIDE 28.4 MMOL/L (24-32); eGFR 27 ML/MIN
[2018-08-29] MEDS: K and/or MAG REPLACEMENT MC SCH (08:00)
[2018-08-29] MEDS: furosemide 40mg/4ml inj IV SCH (08:05)
[2018-08-29] MEDS: atorvastatin 10mg tablet PO SCH (08:07)
[2018-08-29] MEDS: calcium carbonate 500mg chew tablet PO SCH ×3 (08:07→19:57)
[2018-08-29] MEDS: busPIRone 15mg tablet PO SCH ×2 (08:07→19:57)
[2018-08-29] MEDS: ferrous sulfate 325mg tablet PO SCH (08:08)
[2018-08-29] MEDS: potassium chloride 8mEq ER tablet PO SCH ×2 (08:08→19:57)
[2018-08-29] MEDS: levoTHYROXINE 75mcg tablet PO SCH (08:08)
[2018-08-29] MEDS: predniSONE 20 mg tablet PO SCH (08:08)
[2018-08-29] MEDS: losartan 25mg tablet PO SCH (08:08)
[2018-08-29] MEDS: pregabalin 75mg capsule PO SCH ×2 (08:08→19:57)
[2018-08-29] MEDS: lactobacillus rhamnosus 10,000 MMU CELLS/CAPSULE PO SCH ×2 (08:08→19:56)
[2018-08-29] MEDS: carvedilol 6.25mg tablet PO SCH ×2 (08:09→19:56)
[2018-08-29] MEDS: CefTRIAXone 2gm/D5W 50ml 50 ML IV SCH (08:09)
[2018-08-29] MEDS: heparin, porcine 5000 units/ml vial SQ SCH ×2 (08:47→19:58)
[2018-08-29] MEDS: insulin Lispro (HumaLOG) vial - multi-dose SQ SCH ×3 (08:49→19:53)
[2018-08-29] MEDS: cyclobenzaprine 10mg tablet PO PRN (08:58)
[2018-08-29] MEDS: acetaminophen 325mg tablet PO PRN (08:59)
[2018-08-29 11:42] VITALS: BP 106/63
[2018-08-29] MEDS: docusate sod 100mg capsule PO SCH ×2 (12:37→19:56)
[2018-08-29 19:00] VITALS: BP 138/63
[2018-08-29] MEDS: insulin glargine (Lantus) pen - multi-dose SQ SCH (22:35)
[2018-08-29] MEDS: QUEtiapine 25mg tablet PO SCH (22:36)
[2018-08-29 23:00] VITALS: BP 153/69
[2018-08-30] MEDS: HYDROcodone/acetaminophen 5mg/325mg tablet PO PRN ×2 (02:59→07:34)
[2018-08-30 03:00] VITALS: BP 155/62
[2018-08-30 07:00] VITALS: BP 138/59
[2018-08-30] MEDS: ipratropium/albuterol 3ml nebule NEB SCH ×5 (07:00→23:00)
[2018-08-30] MEDS ORDERED: HYDROcodone/acetaminophen 5mg/325mg tablet PO ONE (07:30)
[2018-08-30] MEDS: ferrous sulfate 325mg tablet PO SCH (07:34)
[2018-08-30] MEDS: predniSONE 20 mg tablet PO SCH (07:34)
[2018-08-30] MEDS: lactobacillus rhamnosus 10,000 MMU CELLS/CAPSULE PO SCH ×2 (07:34→21:09)
[2018-08-30] MEDS: docusate sod 100mg capsule PO SCH ×3 (07:34→21:09)
[2018-08-30] MEDS: levoTHYROXINE 75mcg tablet PO SCH (07:35)
[2018-08-30] MEDS: atorvastatin 10mg tablet PO SCH (07:35)
[2018-08-30] MEDS: pregabalin 75mg capsule PO SCH ×2 (07:35→21:09)
[2018-08-30] MEDS: carvedilol 6.25mg tablet PO SCH ×2 (07:35→21:10)
[2018-08-30] MEDS: potassium chloride 8mEq ER tablet PO SCH ×2 (07:35→21:09)
[2018-08-30] MEDS: furosemide 40mg/4ml inj IV SCH (07:36)
[2018-08-30] MEDS: calcium carbonate 500mg chew tablet PO SCH ×3 (07:36→17:47)
[2018-08-30] MEDS: losartan 25mg tablet PO SCH (07:36)
[2018-08-30] MEDS: heparin, porcine 5000 units/ml vial SQ SCH ×2 (07:36→21:08)
[2018-08-30] MEDS: busPIRone 15mg tablet PO SCH ×2 (07:36→21:13)
[2018-08-30] MEDS: CefTRIAXone 2gm/D5W 50ml 50 ML IV SCH (07:37)
[2018-08-30] MEDS: BUDESONIDE 0.25 MG/2 ML AMPUL.NEB IH SCH ×2 (07:57→20:02)
[2018-08-30] MEDS: K and/or MAG REPLACEMENT MC SCH (08:00)
[2018-08-30] MEDS: cyclobenzaprine 10mg tablet PO PRN (10:24)
[2018-08-30] MEDS ORDERED: normal saline 1000ml 1,000 ML IV ONE (11:45)
[2018-08-30] MEDS: HYDROcodone/acetaminophen 10/325mg tab PO PRN ×3 (11:49→22:33)
[2018-08-30] MEDS ORDERED: Protein Shake (high protein) 240ml (8oz) cup PO SCH (13:00)
[2018-08-30] MEDS: insulin Lispro (HumaLOG) vial - multi-dose SQ SCH ×2 (13:03→19:47)
[2018-08-30] MEDS: ketorolac trometh. 30mg/ml inj. IV PRN (14:06)
[2018-08-30 15:00] VITALS: BP 129/60
[2018-08-30] MEDS ORDERED: metoclopramide 10mg/10 ml UD oral solution PO SCH (16:00)
[2018-08-30 19:00] VITALS: BP 101/76
[2018-08-30] MEDS ORDERED: pantoprazole 40 MG vial IV SCH (20:00)
[2018-08-30] MEDS: QUEtiapine 25mg tablet PO SCH (21:09)
[2018-08-30] MEDS: insulin glargine (Lantus) pen - multi-dose SQ SCH (22:29)
[2018-08-30 23:00] VITALS: BP 92/50
[2018-08-31 03:00] VITALS: BP 100/44
[2018-08-31] MEDS: HYDROcodone/acetaminophen 10/325mg tab PO PRN ×2 (04:53→14:03)
[2018-08-31 06:00] VITALS: BP 107/52
[2018-08-31] MEDS: ipratropium/albuterol 3ml nebule NEB SCH ×2 (07:15→11:00)
[2018-08-31] MEDS: BUDESONIDE 0.25 MG/2 ML AMPUL.NEB IH SCH (07:15)
[2018-08-31] MEDS: ferrous sulfate 325mg tablet PO SCH (07:53)
[2018-08-31] MEDS: carvedilol 6.25mg tablet PO SCH (07:53)
[2018-08-31] MEDS: potassium chloride 8mEq ER tablet PO SCH (07:53)
[2018-08-31] MEDS: lactobacillus rhamnosus 10,000 MMU CELLS/CAPSULE PO SCH (07:53)
[2018-08-31] MEDS: docusate sod 100mg capsule PO SCH (07:53)
[2018-08-31] MEDS: pregabalin 75mg capsule PO SCH (07:54)
[2018-08-31] MEDS: busPIRone 15mg tablet PO SCH (07:54)
[2018-08-31] MEDS: levoTHYROXINE 75mcg tablet PO SCH (07:54)
[2018-08-31] MEDS: predniSONE 20 mg tablet PO SCH (07:54)
[2018-08-31] MEDS: atorvastatin 10mg tablet PO SCH (07:55)
[2018-08-31] MEDS: calcium carbonate 500mg chew tablet PO SCH ×2 (07:55→13:18)
[2018-08-31] MEDS: losartan 25mg tablet PO SCH (07:55)
[2018-08-31] MEDS: heparin, porcine 5000 units/ml vial SQ SCH (07:57)
[2018-08-31] MEDS: K and/or MAG REPLACEMENT MC SCH (08:00)
[2018-08-31] MEDS: furosemide 40mg/4ml inj IV SCH (08:02)
[2018-08-31] MEDS: CefTRIAXone 2gm/D5W 50ml 50 ML IV SCH (08:07)
[2018-08-31] MEDS: insulin Lispro (HumaLOG) vial - multi-dose SQ SCH ×2 (08:23→13:04)
[2018-08-31 11:00] VITALS: BP 104/69
== END 2018-08-31 15:10 | DRG 177 ==
LOC: ER 10:46 → ED HOLD 14:47 → PCU 3S 15:47
PROVIDERS: ADMIT Internal Medicine; ATTEND Family Medicine
PROC: B3201ZZ Computerized Tomography (CT Scan) of Thoracic Aorta using Low Osmolar Contrast (ICD-10-PCS; principal; 2018-08-24)
DX: J69.0 Pneumonitis due to inhalation of food and vomit (principal); I50.23 Acute on chronic systolic (congestive) heart failure; N17.9 Acute kidney failure, unspecified; I13.0 Hypertensive heart and chronic kidney disease with heart failure and stage 1 through stage 4 chronic kidney disease, or unspecified chronic kidney disease; J44.1 Chronic obstructive pulmonary disease with (acute) exacerbation; R04.2 Hemoptysis; I42.9 Cardiomyopathy, unspecified; I25.10 Atherosclerotic heart disease of native coronary artery without angina pectoris; N18.3 Chronic kidney disease, stage 3 (moderate); E03.9 Hypothyroidism, unspecified; E78.5 Hyperlipidemia, unspecified; F32.9 Major depressive disorder, single episode, unspecified; F41.9 Anxiety disorder, unspecified; G47.33 Obstructive sleep apnea (adult) (pediatric); G89.4 Chronic pain syndrome; D63.8 Anemia in other chronic diseases classified elsewhere; I48.91 Unspecified atrial fibrillation; X58.XXXA Exposure to other specified factors, initial encounter; E11.22 Type 2 diabetes mellitus with diabetic chronic kidney disease; K21.9 Gastro-esophageal reflux disease without esophagitis; K75.3 Granulomatous hepatitis, not elsewhere classified; K76.89 Other specified diseases of liver; I44.7 Left bundle-branch block, unspecified; M19.90 Unspecified osteoarthritis, unspecified site; S39.012A Strain of muscle, fascia and tendon of lower back, initial encounter; Z66 Do not resuscitate; Z90.710 Acquired absence of both cervix and uterus; Z99.81 Dependence on supplemental oxygen; Z88.5 Allergy status to narcotic agent; Z88.8 Allergy status to other drugs, medicaments and biological substances; Z79.899 Other long term (current) drug therapy; Z79.82 Long term (current) use of aspirin; Z79.890 Hormone replacement therapy; Z87.01 Personal history of pneumonia (recurrent); Z87.891 Personal history of nicotine dependence; Z83.3 Family history of diabetes mellitus; Y93.89 Activity, other specified; Y92.89 Other specified places as the place of occurrence of the external cause; Y99.8 Other external cause status
CPT/HCPCS: 36415; 71045; 71275; 72148; 73502; 80048; 80053; 82948; 83036; 83605; 83735; 83880; 84145; 84484; 85025; 85379; 87040; 87070; 92616; 93005; 93306; 93970; 94640; 94760; 96365; 97116; 97161; 97164; 97530; 99285; G0378; J0696; J1170; J1644; J1815; J1885; J1940; J2270; J7512; Q9967

== ENCOUNTER 2018-10-15 22:01 | Emergency (ER) | payer MEDICARE, OTHER ==
[~2018-10-15] VITALS: Ht 165.1 cm; Wt 104.0 kg
[~2018-10-15 22:01] MED LIST changes: +ADV50100 IH; -ALB0.5UD IH; -LACT1CAP26 PO; +LOSA25TA96 PO; -PANT-47 PO; +PRED20TA PO; +UMEC62.5; -VALS40TA2 PO; +ZAR2.5T PO
[2018-10-15 22:06] VITALS: BP 87/60
[2018-10-15] MEDS ORDERED: cyclobenzaprine 10mg tablet PO ONE (22:10)
[2018-10-15] MEDS ORDERED: CYCL-1 PO (22:56)
== END 2018-10-15 23:17 | disposition home or self-care (01) ==
LOC: ER 22:02
DX: S46.911A Strain of unspecified muscle, fascia and tendon at shoulder and upper arm level, right arm, initial encounter (principal); I48.91 Unspecified atrial fibrillation; I50.9 Heart failure, unspecified; I11.0 Hypertensive heart disease with heart failure; J44.9 Chronic obstructive pulmonary disease, unspecified; E11.9 Type 2 diabetes mellitus without complications; G89.29 Other chronic pain; Z90.710 Acquired absence of both cervix and uterus; Z98.890 Other specified postprocedural states; Z88.5 Allergy status to narcotic agent; Z88.8 Allergy status to other drugs, medicaments and biological substances; Z79.899 Other long term (current) drug therapy; X58.XXXA Exposure to other specified factors, initial encounter; Y93.89 Activity, other specified; Y92.89 Other specified places as the place of occurrence of the external cause; Y99.8 Other external cause status
CPT/HCPCS: 71045; 73030; 93005; 99283

== ENCOUNTER 2018-11-28 12:21 | Emergency (ER) | payer MEDICARE, OTHER ==
[~2018-11-28] VITALS: Ht 165.1 cm; Wt 104.0 kg
[~2018-11-28 12:21] MED LIST changes: +CYCL-1 PO
[2018-11-28 12:26] VITALS: BP 160/71
[2018-11-28] MEDS ORDERED: HYDROcodone/acetaminophen 5mg/325mg tablet PO ONE (13:45)
== END 2018-11-28 13:56 | disposition home or self-care (01) ==
LOC: ER 12:22
DX: G89.29 Other chronic pain (principal); Z76.0 Encounter for issue of repeat prescription; I48.91 Unspecified atrial fibrillation; I11.0 Hypertensive heart disease with heart failure; I50.9 Heart failure, unspecified; J44.9 Chronic obstructive pulmonary disease, unspecified; E11.9 Type 2 diabetes mellitus without complications; Z98.890 Other specified postprocedural states; Z90.710 Acquired absence of both cervix and uterus; Z87.01 Personal history of pneumonia (recurrent); Z88.6 Allergy status to analgesic agent; Z88.5 Allergy status to narcotic agent; Z79.899 Other long term (current) drug therapy
CPT/HCPCS: 99282

== ENCOUNTER 2018-12-26 12:44 | Emergency (ER) | payer MEDICARE, OTHER ==
[~2018-12-26] VITALS: Ht 167.6 cm; Wt 107.0 kg
--- NOTE | 2018-12-26 12:58 | NUR ---
LAB AT BEDSIDE DRAWING PER ORDERS NOW.
[2018-12-26] MEDS ORDERED: IPRA3AMP31 INH (13:16)
[2018-12-26] MEDS ORDERED: CARV-49 PO (13:17)
[2018-12-26 13:19] LABS: BASOPHILS # (AUTO) 0.1 X10'3 (0-0.2); BASOPHILS % (AUTO) 0.7 % (0-1); EOSINOPHILS # (AUTO) 0.1 X10'3 (0-0.9); EOSINOPHILS % (AUTO) 1.8 % (0-6); HEMATOCRIT 32.5 % (35.0-45.0); HEMOGLOBIN 10.4 g/dl (12.0-16.0); LYMPHOCYTES # (AUTO) 1.9 X10'3 (1.1-4.8); LYMPHOCYTES % (AUTO) 25.2 % (21-51); MEAN CORPUSCULAR HEMOGLOBIN 29.3 PG (27.0-31.0); MEAN CORPUSCULAR HGB CONC 32.1 g/dL (33.0-36.5); MEAN CORPUSCULAR VOLUME 91.3 FL (78-98); MONOCYTES # (AUTO) 0.6 X10'3 (0-0.9); MONOCYTES % (AUTO) 7.7 % (2-12); NEUTROPHILS # (AUTO) 4.8 X10'3 (1.8-7.7); NEUTROPHILS % (AUTO) 64.6 % (42-75); PLATELET COUNT 189 X10'3 (140-440); RED BLOOD COUNT 3.56 X10'6 (4.20-5.60); RED CELL DISTRIBUTION WIDTH 15.5 % (11.5-14.5); WHITE BLOOD COUNT 7.4 X10'3 (4.5-11.0)
[2018-12-26] MEDS ORDERED: FLUT16SP2 BOTHNARES (13:19)
[2018-12-26] MEDS ORDERED: PANT-47 PO (13:19)
--- NOTE | 2018-12-26 13:24 | NUR ---
UPDATED PT TO PLAN OF CARE, ORIENTED PT TO CALL LIGHT, PT HAS NOT NEEDS AT THIS TIME.
[2018-12-26 13:33] LABS: ALANINE AMINOTRANSFERASE 15 U/L (12-78); ALBUMIN/GLOBULIN RATIO 0.8 (1.1-1.5); ALKALINE PHOSPHATASE 61 IU/L (46-116); ANION GAP 5 (8-16); ASPARTATE AMINO TRANSFERASE 20 U/L (10-37); BILIRUBIN,TOTAL 0.2 MG/DL (0.1-1.0); BLOOD UREA NITROGEN 34 MG/DL (7-18); BUN/CREATININE RATIO 25.2 (6.6-38.0); CALCIUM 9.5 MG/DL (8.5-10.1); CHLORIDE 104 MMOL/L (99-107); CREATININE 1.35 MG/DL (0.40-0.90); GLUCOSE 194 MG/DL (70-104); POTASSIUM 4.3 MMOL/L (3.5-5.1); SODIUM 142 MMOL/L (135-145); TOTAL CARBON DIOXIDE 32.6 MMOL/L (24-32); eGFR 37 ML/MIN
[2018-12-26 13:41] LABS: MAGNESIUM 1.9 MG/DL (1.5-2.4)
[2018-12-26] MEDS ORDERED: furosemide 10 MG/1 ML 10ml inj IV ONE (14:40)
--- NOTE | 2018-12-26 15:03 | NUR ---
MEDICATED PT PER ORDERS, PT IS COMFOTABLE AND HAS NO NEEDS AT THIS TIME. ORIENTED TO CALL LIGHT.
[2018-12-26] MEDS ORDERED: PRED20TA PO (15:17)
[2018-12-26] MEDS ORDERED: AZIT-63 PO (15:18)
[2018-12-26 15:33] VITALS: BP 136/65
== END 2018-12-26 16:08 | disposition home or self-care (01) ==
LOC: ER 12:44
DX: I11.0 Hypertensive heart disease with heart failure (principal); I50.9 Heart failure, unspecified; J44.1 Chronic obstructive pulmonary disease with (acute) exacerbation; I48.91 Unspecified atrial fibrillation; E11.9 Type 2 diabetes mellitus without complications; G89.29 Other chronic pain; Z90.710 Acquired absence of both cervix and uterus; Z88.6 Allergy status to analgesic agent; Z88.5 Allergy status to narcotic agent; Z88.8 Allergy status to other drugs, medicaments and biological substances; Z79.899 Other long term (current) drug therapy
CPT/HCPCS: 36415; 71045; 71250; 80053; 83605; 83735; 83880; 84145; 84484; 85025; 87040; 93005; 96374; 99284; J1940

== ENCOUNTER 2019-02-01 10:35 | Day surgery (SDC) | payer MEDICARE, OTHER, MEDICAID ==
[2019-02-01] VITALS (10 sets, daily range): BP systolic 106–152; BP diastolic 55–87
[~2019-02-01] VITALS: Ht 165.1 cm; Wt 104.3 kg
[~2019-02-01 10:35] MED LIST changes: +CARV-49 PO; -CARV6.253 PO; -CYCL-1 PO; +FLUT16SP2 BOTHNARES; +IPRA3AMP31 INH; -IPRA3AMP9 NEB; +PANT-47 PO; -PRED20TA PO; -ZAR2.5T PO
[2019-02-01] MEDS ORDERED: diphenhydrAMINE 25mg capsule PO PRN (11:05)
[2019-02-01] MEDS ORDERED: normal saline 1,000 ML IV SCH (11:05)
[2019-02-01] MEDS ORDERED: VALS80TA32 PO (11:22)
[2019-02-01] MEDS ORDERED: GUAI600T45 PO (11:22)
[2019-02-01] MEDS ORDERED: ALBU18HF2 INH (11:22)
[2019-02-01] MEDS ORDERED: METF500T PO (11:22)
[2019-02-01] MEDS ORDERED: POTA8CAP9 PO (11:33)
[2019-02-01] MEDS ORDERED: DILT240C90 PO (11:33)
[2019-02-01] MEDS ORDERED: ASPI81TA52 PO (11:33)
[2019-02-01] MEDS ORDERED: ALPR-624 PO (11:33)
[2019-02-01] MEDS ORDERED: DIPH-186 PO (11:33)
[2019-02-01] MEDS ORDERED: RANO500T5 PO (11:40)
[2019-02-01 12:18] LABS: BASOPHILS # (AUTO) 0.1 X10'3 (0-0.2); BASOPHILS % (AUTO) 0.8 % (0-1); EOSINOPHILS # (AUTO) 0.1 X10'3 (0-0.9); EOSINOPHILS % (AUTO) 1.5 % (0-6); HEMATOCRIT 38.2 % (35.0-45.0); HEMOGLOBIN 12.5 g/dl (12.0-16.0); LYMPHOCYTES # (AUTO) 2.4 X10'3 (1.1-4.8); LYMPHOCYTES % (AUTO) 26.5 % (21-51); MEAN CORPUSCULAR HEMOGLOBIN 30.1 PG (27.0-31.0); MEAN CORPUSCULAR HGB CONC 32.7 g/dL (33.0-36.5); MEAN CORPUSCULAR VOLUME 92.1 FL (78-98); MEAN PLATELET VOLUME 8.4 FL (7.4-10.4); MONOCYTES % (AUTO) 10.7 % (2-12); NEUTROPHILS # (AUTO) 5.4 X10'3 (1.8-7.7); NEUTROPHILS % (AUTO) 60.5 % (42-75); PLATELET COUNT 239 X10'3 (140-440); RED BLOOD COUNT 4.15 X10'6 (4.20-5.60); RED CELL DISTRIBUTION WIDTH 15.2 % (11.5-14.5)
[2019-02-01 12:31] LABS: ALBUMIN 3.5 G/DL (3.4-5.0); ANION GAP 6 (8-16); BLOOD UREA NITROGEN 39 MG/DL (7-18); BUN/CREATININE RATIO 22.9 (6.6-38.0); CALCIUM 10.3 MG/DL (8.5-10.1); CHLORIDE 103 MMOL/L (99-107); GLUCOSE 115 MG/DL (70-104); MAGNESIUM 1.8 MG/DL (1.5-2.4); SODIUM 142 MMOL/L (135-145); eGFR 29 ML/MIN
[2019-02-01] MEDS ORDERED: fentaNYL/PF 50MCG/1 ML 2ML syringe ONE (12:40)
[2019-02-01] MEDS ORDERED: iohexol 350MG/ML 100ml bottle IV ONE (12:41)
[2019-02-01] MEDS ORDERED: LIDOcaine 1% (10mg/ml)w/preservative injection 20ml MDV ONE (12:41)
[2019-02-01] MEDS ORDERED: midazolam 2 mg/2 ml injection ONE (12:41)
[2019-02-01] MEDS ORDERED: iohexol 350 MG/ML 50ML vial IV ONE (12:41)
[2019-02-01] MEDS ORDERED: adenosine 90 MG/30ml kit =/or below 120kg Cath Lab IV ONE (13:27)
[2019-02-01] MEDS ORDERED: HYDROcodone/acetaminophen 5mg/325mg tablet PO PRN (15:35)
== END 2019-02-01 17:43 | disposition home or self-care (01) ==
LOC: SSTAY O 10:35
PROVIDERS: ATTEND Internal Medicine Cardiovascular Disease
DX: I25.118 Atherosclerotic heart disease of native coronary artery with other forms of angina pectoris (principal); I48.0 Paroxysmal atrial fibrillation; I10 Essential (primary) hypertension; I44.7 Left bundle-branch block, unspecified; E78.5 Hyperlipidemia, unspecified; E03.9 Hypothyroidism, unspecified; E11.9 Type 2 diabetes mellitus without complications; D50.9 Iron deficiency anemia, unspecified; J44.9 Chronic obstructive pulmonary disease, unspecified; Z90.710 Acquired absence of both cervix and uterus; Z98.890 Other specified postprocedural states; Z82.49 Family history of ischemic heart disease and other diseases of the circulatory system; Z80.0 Family history of malignant neoplasm of digestive organs; Z87.891 Personal history of nicotine dependence
CPT/HCPCS: 36415; 80048; 82948; 83735; 85025; 85610; 93005; 93458; 93571; 99152; 99153; A6257; C1753; C1769; J0153; J1644; J2001; J2250; J3010; J7030; Q0163; Q9967; A4620; C1760; C1894

== ENCOUNTER 2019-02-20 14:15 | Inpatient (IN) | payer MEDICARE, OTHER, MEDICAID ==
[~2019-02-20] VITALS: Ht 175.3 cm; Wt 109.0 kg
[~2019-02-20 14:15] MED LIST changes: +ALBU18HF2 INH; +ALPR-624 PO; +ASPI81TA52 PO; -BUSP15TA12 PO; -CARV-49 PO; +DILT240C90 PO; +DIPH-186 PO; -GLIP5TAB13 PO; +GUAI600T45 PO; -LOSA25TA96 PO; +METF500T PO; -PANT-47 PO; +RANO500T5 PO; +VALS80TA32 PO
[2019-02-20 14:43] LABS: BASOPHILS % (AUTO) 0.6 % (0-1); EOSINOPHILS # (AUTO) 0.2 X10'3 (0-0.9); EOSINOPHILS % (AUTO) 2.6 % (0-6); HEMATOCRIT 31.6 % (35.0-45.0); HEMOGLOBIN 10.2 g/dl (12.0-16.0); LYMPHOCYTES # (AUTO) 1.8 X10'3 (1.1-4.8); LYMPHOCYTES % (AUTO) 22.4 % (21-51); MEAN CORPUSCULAR HEMOGLOBIN 29.6 PG (27.0-31.0); MEAN CORPUSCULAR HGB CONC 32.3 g/dL (33.0-36.5); MEAN CORPUSCULAR VOLUME 91.5 FL (78-98); MEAN PLATELET VOLUME 8.2 FL (7.4-10.4); MONOCYTES # (AUTO) 0.8 X10'3 (0-0.9); MONOCYTES % (AUTO) 9.4 % (2-12); NEUTROPHILS # (AUTO) 5.2 X10'3 (1.8-7.7); PLATELET COUNT 247 X10'3 (140-440); RED BLOOD COUNT 3.45 X10'6 (4.20-5.60); RED CELL DISTRIBUTION WIDTH 14.3 % (11.5-14.5)
[2019-02-20 14:52] LABS: PARTIAL THROMBOPLASTIN TIME 29 SECONDS (22-32)
[2019-02-20 15:03] LABS: ALANINE AMINOTRANSFERASE 19 U/L (12-78); ALBUMIN 2.9 G/DL (3.4-5.0); ALBUMIN/GLOBULIN RATIO 0.7 (1.1-1.5); ALKALINE PHOSPHATASE 70 IU/L (46-116); ANION GAP 4 (8-16); ASPARTATE AMINO TRANSFERASE 22 U/L (10-37); BILIRUBIN,TOTAL 0.4 MG/DL (0.1-1.0); BLOOD UREA NITROGEN 31 MG/DL (7-18); BUN/CREATININE RATIO 20.4 (6.6-38.0); CALCIUM 9.5 MG/DL (8.5-10.1); CHLORIDE 102 MMOL/L (99-107); CREATININE 1.52 MG/DL (0.40-0.90); GLUCOSE 238 MG/DL (70-104); POTASSIUM 4.7 MMOL/L (3.5-5.1); SODIUM 139 MMOL/L (135-145); TOTAL CARBON DIOXIDE 32.6 MMOL/L (24-32); TOTAL PROTEIN 7.3 G/DL (6.4-8.2); eGFR 33 ML/MIN
--- NOTE | 2019-02-20 15:06 | NUR ---
2 attempts at piv's were made unsuccesfully, paged PICC nurse for assistance.
[2019-02-20] MEDS ORDERED: LOSA25TA41 PO (15:09)
[2019-02-20] MEDS ORDERED: CARV6.2553 PO (15:09)
[2019-02-20] MEDS ORDERED: PANT40TA4 PO (15:09)
[2019-02-20] MEDS ORDERED: GLIP5TAB13 PO (15:09)
[2019-02-20] MEDS ORDERED: BUSP15TA12 PO (15:09)
[2019-02-20] MEDS ORDERED: acetaminophen 325mg tablet PO PRN (16:10)
[2019-02-20] MEDS ORDERED: potassium Cl 40MEQ/NS 500ml 500 ML IV PRN ×2 (16:10)
[2019-02-20] MEDS ORDERED: glucagon, human recombinant 1mg kit SUBCUT PRN (16:10)
[2019-02-20] MEDS ORDERED: insulin Lispro (HumaLOG) vial - multi-dose SQ SCH (16:10)
[2019-02-20] MEDS ORDERED: dextrose 50%-water 50ml dispensing syringe IV PRN ×2 (16:10)
[2019-02-20] MEDS ORDERED: nitroGLYCERIN 0.2mg/hour patch TD ONE (16:10)
[2019-02-20] MEDS ORDERED: potassium Cl 20 mEq SR tablet PO PRN ×2 (16:10)
[2019-02-20] MEDS ORDERED: dextrose ORAL solution 15 GM/59 ML bottle PO PRN ×2 (16:10)
[2019-02-20] MEDS ORDERED: enoxaparin 100mg/ml syringe SUBCUT ONE (16:10)
[2019-02-20] MEDS ORDERED: ipratropium/albuterol 3ml nebule NEB PRN (16:10)
[2019-02-20] MEDS ORDERED: MESSAGE TO PHARMACY PO ONE (16:10)
[2019-02-20 16:45] LABS: HEMOGLOBIN A1C 7.8 % (4.5-6.2)
--- NOTE | 2019-02-20 17:48 | NUR ---
PT. IS GETTING AN ECHO AT BEDSIDE.
--- NOTE | 2019-02-20 18:45 | NUR ---
Patient in room . I have received report from Azra MICHAEL and had the opportunity to ask questions and assume patient care.
[2019-02-20 19:40] VITALS: BP 155/54
[2019-02-20] MEDS ORDERED: OLOPATADINE HCL OP SCH (20:00)
[2019-02-20] MEDS: naphazoline/pheniramine eye 1 DROP BOTTLE EACHEYE SCH (20:00)
[2019-02-20] MEDS: ipratropium/albuterol 3ml nebule NEB SCH (20:45)
[2019-02-20] MEDS: pantoprazole 40 MG vial IV SCH (20:52)
[2019-02-20] MEDS: docusate sod 100mg capsule PO SCH (20:53)
[2019-02-20] MEDS: ranolazine 500mg SR tablet (Q12H) PO SCH (20:53)
[2019-02-20] MEDS: carvedilol 6.25mg tablet PO SCH (20:53)
[2019-02-20] MEDS: furosemide 40mg tablet PO SCH (20:55)
[2019-02-20] MEDS: busPIRone 15mg tablet PO SCH (20:55)
[2019-02-20] MEDS: insulin glargine (Lantus) pen - multi-dose SQ SCH (21:00)
[2019-02-20] MEDS ORDERED: ALPRAZolam 0.5mg tablet PO PRN (21:00)
[2019-02-20] MEDS: pregabalin 25mg capsule PO SCH (21:05)
[2019-02-20] MEDS: QUEtiapine 25mg tablet PO SCH (21:05)
[2019-02-20] MEDS: HYDROcodone/acetaminophen 5mg/325mg tablet PO PRN (21:08)
[2019-02-20 23:00] VITALS: BP 106/38
[2019-02-21] MEDS: ipratropium/albuterol 3ml nebule NEB SCH ×4 (02:18→20:28)
[2019-02-21 03:00] VITALS: BP 132/38
[2019-02-21 03:14] LABS: BASOPHILS % (AUTO) 0.6 % (0-1); EOSINOPHILS # (AUTO) 0.3 X10'3 (0-0.9); EOSINOPHILS % (AUTO) 3.4 % (0-6); HEMATOCRIT 30.3 % (35.0-45.0); HEMOGLOBIN 10.1 g/dl (12.0-16.0); LYMPHOCYTES # (AUTO) 2.4 X10'3 (1.1-4.8); LYMPHOCYTES % (AUTO) 32.4 % (21-51); MEAN CORPUSCULAR HEMOGLOBIN 30.4 PG (27.0-31.0); MEAN CORPUSCULAR HGB CONC 33.4 g/dL (33.0-36.5); MEAN CORPUSCULAR VOLUME 90.9 FL (78-98); MEAN PLATELET VOLUME 8.1 FL (7.4-10.4); MONOCYTES # (AUTO) 0.8 X10'3 (0-0.9); MONOCYTES % (AUTO) 10.2 % (2-12); NEUTROPHILS % (AUTO) 53.4 % (42-75); PLATELET COUNT 241 X10'3 (140-440); RED BLOOD COUNT 3.33 X10'6 (4.20-5.60); RED CELL DISTRIBUTION WIDTH 14.4 % (11.5-14.5); WHITE BLOOD COUNT 7.5 X10'3 (4.5-11.0)
[2019-02-21] MEDS: HYDROcodone/acetaminophen 5mg/325mg tablet PO PRN ×2 (03:21→20:47)
[2019-02-21 03:33] LABS: ALBUMIN 2.8 G/DL (3.4-5.0); ANION GAP 4 (8-16); BLOOD UREA NITROGEN 30 MG/DL (7-18); BUN/CREATININE RATIO 19.7 (6.6-38.0); CALCIUM 9.7 MG/DL (8.5-10.1); CHLORIDE 103 MMOL/L (99-107); CREATININE 1.52 MG/DL (0.40-0.90); GLUCOSE 132 MG/DL (70-104); POTASSIUM 4.5 MMOL/L (3.5-5.1); SODIUM 141 MMOL/L (135-145); TOTAL CARBON DIOXIDE 34.1 MMOL/L (24-32); eGFR 33 ML/MIN
--- NOTE | 2019-02-21 05:01 | NUR ---
pt c/o indigestion that rated 9/10 for pain
[2019-02-21] MEDS: mag hydrox/Alum hydrox/simeth 30ml oral suspension PO PRN ×2 (05:26→10:56)
[2019-02-21 06:00] VITALS: BP 120/66
--- NOTE | 2019-02-21 06:31 | NUR ---
Patient in room PCU 3012. I have received report from ALEC David and had the opportunity to ask questions and assume patient care.
--- NOTE | 2019-02-21 06:31 | NUR ---
Problems reprioritized. Patient report given, questions answered & plan of care reviewed with Mina MICHAEL.
[2019-02-21] MEDS: K and/or MAG REPLACEMENT MC SCH (08:00)
[2019-02-21] MEDS: naphazoline/pheniramine eye 1 DROP BOTTLE EACHEYE SCH ×2 (08:00→20:00)
[2019-02-21] MEDS ORDERED: non-formulary drug (Tiotropium Bromide (Spiriva) 1 PUFF) IH SCH (08:00)
[2019-02-21] MEDS: diltiazem CD 120mg capsule (once-daily) PO SCH (08:15)
[2019-02-21] MEDS: ranolazine 500mg SR tablet (Q12H) PO SCH ×2 (08:15→20:28)
[2019-02-21] MEDS: ferrous sulfate 325mg tablet PO SCH (08:15)
[2019-02-21] MEDS: busPIRone 15mg tablet PO SCH ×2 (08:15→20:28)
[2019-02-21] MEDS: carvedilol 6.25mg tablet PO SCH ×2 (08:15→19:07)
[2019-02-21] MEDS: atorvastatin 10mg tablet PO SCH (08:15)
[2019-02-21] MEDS: aspirin 81mg tablet.DR PO SCH (08:15)
[2019-02-21] MEDS: furosemide 40mg tablet PO SCH ×2 (08:15→20:28)
[2019-02-21] MEDS: losartan 25mg tablet PO SCH (08:16)
[2019-02-21] MEDS: pregabalin 25mg capsule PO SCH ×3 (08:16→20:28)
[2019-02-21] MEDS: levoTHYROXINE 75mcg tablet PO SCH (08:16)
[2019-02-21] MEDS: docusate sod 100mg capsule PO SCH ×2 (08:16→20:28)
[2019-02-21] MEDS: pantoprazole 40 MG vial IV SCH ×2 (08:19→20:28)
[2019-02-21] MEDS ORDERED: nitroGLYCERIN 0.4mg SUBLingual tab SL PRN (09:00)
[2019-02-21] MEDS ORDERED: metoprolol tartrate 1mg/ml inj IV PRN (09:00)
[2019-02-21] MEDS ORDERED: regadenoson 0.4mg/5ml syringe IV ONE (09:00)
[2019-02-21] MEDS ORDERED: aminophylline 250mg/10ml inj. IV PRN (09:00)
[2019-02-21] MEDS: sucralfate 1gm/10ml UD suspension PO SCH ×3 (10:56→20:28)
[2019-02-21 11:00] VITALS: BP 115/55
--- NOTE | 2019-02-21 14:04 | NUR ---
[employer] NOTIFIED ME OF PT LOW HR. COREG HELD THIS AM PER PRIMARY RN CHARTING. HR DROPPED INTO THE 30's AND THEN BACK INTO THE MID 40's. BP IS 110/32 WITH O2 SAT@97%ON 2.5L NC. PT IS NON SYMPTOMATIC. MD NOTIFIED, NO NEW ORDERS, CONTINUE TO MONITOR.
--- NOTE | 2019-02-21 14:55 | NUR ---
Pt seen by RENATA for DM ed w/ RD contact information provided. Pt declined verbal DM ed and is aware of CDE course which RENATA encouraged to attend. RENATA d/w RN regarding adding carb controlled diet given DM hx. Addendum: 02/21/19 at [address] Amended: Links added.
[2019-02-21 15:00] VITALS: BP 98/47
--- NOTE | 2019-02-21 16:54 | NUR ---
PAGER ID: [phone] MESSAGE: RM [id number] Diana Rodriguez wanting an order for her inhaler she takes at home here. ALEC Israel ext [phone]
--- NOTE | 2019-02-21 16:58 | NUR ---
PAGER ID: [phone] MESSAGE: [id number] Diana Rodriguez is requesting to see if her inhaler can be ordered for her here. ALEC Israel Ext [phone]
--- NOTE | 2019-02-21 18:32 | NUR ---
Problems reprioritized. Patient report given, questions answered & plan of care reviewed with ALEC Mccarty.
[2019-02-21 19:00] VITALS: BP 131/50
[2019-02-21] MEDS: QUEtiapine 25mg tablet PO SCH (20:28)
[2019-02-21] MEDS: insulin glargine (Lantus) pen - multi-dose SQ SCH (20:38)
[2019-02-21 23:00] VITALS: BP 127/45
[2019-02-22 03:00] VITALS: BP 156/48
[2019-02-22] MEDS: ipratropium/albuterol 3ml nebule NEB SCH ×3 (03:03→14:36)
[2019-02-22 05:45] LABS: ALBUMIN 2.9 G/DL (3.4-5.0); ANION GAP 4 (8-16); BLOOD UREA NITROGEN 33 MG/DL (7-18); BUN/CREATININE RATIO 19.9 (6.6-38.0); CALCIUM 9.8 MG/DL (8.5-10.1); CHLORIDE 102 MMOL/L (99-107); CREATININE 1.66 MG/DL (0.40-0.90); GLUCOSE 118 MG/DL (70-104); POTASSIUM 4.3 MMOL/L (3.5-5.1); SODIUM 139 MMOL/L (135-145); TOTAL CARBON DIOXIDE 33.5 MMOL/L (24-32); eGFR 30 ML/MIN
[2019-02-22 05:56] LABS: BASOPHILS # (AUTO) 0.1 X10'3 (0-0.2); BASOPHILS % (AUTO) 0.9 % (0-1); EOSINOPHILS # (AUTO) 0.3 X10'3 (0-0.9); EOSINOPHILS % (AUTO) 4.1 % (0-6); HEMATOCRIT 30.3 % (35.0-45.0); HEMOGLOBIN 10.2 g/dl (12.0-16.0); LYMPHOCYTES # (AUTO) 2.4 X10'3 (1.1-4.8); LYMPHOCYTES % (AUTO) 33.8 % (21-51); MEAN CORPUSCULAR HEMOGLOBIN 30.5 PG (27.0-31.0); MEAN CORPUSCULAR HGB CONC 33.5 g/dL (33.0-36.5); MEAN CORPUSCULAR VOLUME 91.1 FL (78-98); MEAN PLATELET VOLUME 8.7 FL (7.4-10.4); MONOCYTES # (AUTO) 0.8 X10'3 (0-0.9); MONOCYTES % (AUTO) 10.8 % (2-12); NEUTROPHILS # (AUTO) 3.6 X10'3 (1.8-7.7); NEUTROPHILS % (AUTO) 50.4 % (42-75); PLATELET COUNT 252 X10'3 (140-440); RED BLOOD COUNT 3.33 X10'6 (4.20-5.60); RED CELL DISTRIBUTION WIDTH 14.5 % (11.5-14.5); WHITE BLOOD COUNT 7.2 X10'3 (4.5-11.0)
[2019-02-22 06:00] VITALS: BP 143/44
--- NOTE | 2019-02-22 06:24 | NUR ---
Patient in room PCU 3012. I have received report from Bibiana MICHAEL and had the opportunity to ask questions and assume patient care Pt. is observed to be asleep at this time.
--- NOTE | 2019-02-22 06:27 | NUR ---
Problems reprioritized. Patient report given, questions answered & plan of care reviewed with Neela MICHAEL.
[2019-02-22] MEDS: sucralfate 1gm/10ml UD suspension PO SCH ×3 (07:50→16:26)
[2019-02-22] MEDS: pregabalin 25mg capsule PO SCH ×2 (07:51→14:36)
[2019-02-22] MEDS: HYDROcodone/acetaminophen 5mg/325mg tablet PO PRN (07:52)
[2019-02-22] MEDS: naphazoline/pheniramine eye 1 DROP BOTTLE EACHEYE SCH (07:53)
[2019-02-22] MEDS: docusate sod 100mg capsule PO SCH (07:54)
[2019-02-22] MEDS: pantoprazole 40 MG vial IV SCH (07:54)
[2019-02-22] MEDS: aspirin 81mg tablet.DR PO SCH (07:54)
[2019-02-22] MEDS: busPIRone 15mg tablet PO SCH (07:54)
[2019-02-22] MEDS: carvedilol 6.25mg tablet PO SCH (07:54)
[2019-02-22] MEDS: furosemide 40mg tablet PO SCH (07:54)
[2019-02-22] MEDS: diltiazem CD 120mg capsule (once-daily) PO SCH (07:54)
[2019-02-22] MEDS: ranolazine 500mg SR tablet (Q12H) PO SCH (07:54)
[2019-02-22] MEDS: losartan 25mg tablet PO SCH (07:54)
[2019-02-22] MEDS: ferrous sulfate 325mg tablet PO SCH (07:54)
[2019-02-22] MEDS: atorvastatin 10mg tablet PO SCH (07:54)
[2019-02-22] MEDS: levoTHYROXINE 75mcg tablet PO SCH (07:54)
[2019-02-22] MEDS: K and/or MAG REPLACEMENT MC SCH (07:55)
[2019-02-22 11:59] VITALS: BP 131/41
--- NOTE | 2019-02-22 12:42 | NUR ---
Page to Case Management: Diana Rodriguez: Was discharged by the MD, but does not wish to be discharged home, the exception would be Home with home health. She would prefer a rehabilitation center. Thank You Neela MICHAEL [facility] [phone]
--- NOTE | 2019-02-22 13:57 | NUR ---
Discharge Plan is discussed with Pt. She is requesting home health. The current discharge plan will be managed by discharge planning. Arrangement for home health with a target discharge date on Monday.
[2019-02-22 15:00] VITALS: BP 134/51
--- NOTE | 2019-02-22 15:05 | NUR ---
Family is notified of Plan of care: Pt's desire to be discharged home with home health services. They are informed Discharge planning will set up home health service but not until MondayFebruary 25 following the weekend.
--- NOTE | 2019-02-22 15:36 | NUR ---
PAGER ID: [phone] MESSAGE: From Neela MICHAEL [phone] Pt. Diana Rodriguez Will not be discharging home, She requested Home Health on discharge and this will not be arranged until MondayFebruary 25 Dr. Menjivar response: Discharge Pt. home to family today with outpatient Physical Therapy.
--- NOTE | 2019-02-22 15:53 | NUR ---
Message to Discharge Planning: Neela MCIHAEL [phone] Diana Jennifer 2012B will be discharged home today. Per Dr. Ponce. She is recommending for out Pt. Physical Therapy. Pt. States that transportation to P.T. would be cost prohibitive for her.
--- NOTE | 2019-02-22 16:36 | NUR ---
Family is notified of discharge and or Home Health Orders. Family will take Pt. home and [facility] will see Pt. on Monday for admission to Home Health Services ordered by Dr. Menjivar today.
--- NOTE | 2019-02-22 17:43 | NUR ---
pt. is discharged home accompanied by Son. Home O2 is provided to Pt. for transport home. Instructions are written, Diabetic handout is provided, A chest pain handout is provided. Oral teaching includes Plan of Care and Home Health Appointment on Monday02-24-19 This instruction is given to the Pt. and family member. Home health physical therapy is for the purpose of strengthening. IV is DC'd, this site is without complication. Pt. walks to bathroom with good balance. All belonging are packed and with Pt., Assisted with wheelchair to curb. with assistance into the vehicle.
[2019-02-22] MEDS ORDERED: pantoprazole 40mg Tablet.DR PO SCH (20:00)
== END 2019-02-22 17:26 | disposition home health service (06) | DRG 291 ==
LOC: ER 14:16 → PCU 3S 19:24 → CMPBEDREQ 20:01
PROVIDERS: ADMIT Internal Medicine; ATTEND Internal Medicine
DX: I13.0 Hypertensive heart and chronic kidney disease with heart failure and stage 1 through stage 4 chronic kidney disease, or unspecified chronic kidney disease (principal); I50.23 Acute on chronic systolic (congestive) heart failure; J96.10 Chronic respiratory failure, unspecified whether with hypoxia or hypercapnia; I25.110 Atherosclerotic heart disease of native coronary artery with unstable angina pectoris; E11.42 Type 2 diabetes mellitus with diabetic polyneuropathy; E03.9 Hypothyroidism, unspecified; E78.5 Hyperlipidemia, unspecified; I48.2 Chronic atrial fibrillation; E11.22 Type 2 diabetes mellitus with diabetic chronic kidney disease; N18.9 Chronic kidney disease, unspecified; J44.9 Chronic obstructive pulmonary disease, unspecified; R07.89 Other chest pain; Z66 Do not resuscitate; K21.9 Gastro-esophageal reflux disease without esophagitis; F32.9 Major depressive disorder, single episode, unspecified; F41.9 Anxiety disorder, unspecified; G89.29 Other chronic pain; M54.9 Dorsalgia, unspecified; K30 Functional dyspepsia; Z79.51 Long term (current) use of inhaled steroids; Z90.710 Acquired absence of both cervix and uterus; Z95.5 Presence of coronary angioplasty implant and graft; Z88.5 Allergy status to narcotic agent; Z83.3 Family history of diabetes mellitus; Z79.899 Other long term (current) drug therapy; Z79.82 Long term (current) use of aspirin
CPT/HCPCS: 36415; 71045; 80048; 80053; 82948; 83036; 83880; 84484; 85025; 85610; 85730; 87070; 93005; 93306; 94640; 94760; 96372; 97116; 97162; 97530; 99285; C9113; G0378; J1650; J1815

== ENCOUNTER 2019-04-26 11:47 | Emergency (ER) | payer MEDICARE, OTHER, MEDICAID ==
[~2019-04-26] VITALS: Ht 170.2 cm; Wt 107.7 kg
[~2019-04-26 11:47] MED LIST changes: -ADV50100 IH; -ALPR-624 PO; +AZI25OT PO; +BUSP15TA12 PO; +CARV6.2553 PO; -DILT240C90 PO; -FERR325T28 PO; +GLIP5TAB13 PO; +LOSA25TA41 PO; -METF500T PO; +PANT40TA4 PO; +POTA8CAP20 PO; -POTA8CAP9 PO; -RANO500T5 PO; -VALS80TA32 PO
[2019-04-26 12:22] LABS: CLARITY,URINE CLEAR (Clear); COLOR,URINE YELLOW (Yellow); GLUCOSE, URINE NEGATIVE (Neg); KETONES,URINE NEGATIVE (Neg); LEUKOCYTE ESTERASE ,URINE NEGATIVE (Neg); NITRITES, URINE NEGATIVE (Neg); OCCULT BLOOD,URINE NEGATIVE (Neg); PH,URINE 5.5 (4.8-8.0); PROTEIN,URINE NEGATIVE (Neg); UA COLLECTION TYPE CLN CATCH MIDSTREAM; UROBILINOGEN,URINE 0.2 E.U/dL (0.2-1.0)
[2019-04-26 12:45] LABS: BASOPHILS % (AUTO) 0.4 % (0-1); EOSINOPHILS # (AUTO) 0.1 X10'3 (0-0.9); EOSINOPHILS % (AUTO) 0.7 % (0-6); HEMOGLOBIN 10.2 g/dl (12.0-16.0); LYMPHOCYTES % (AUTO) 26.5 % (21-51); MEAN CORPUSCULAR HEMOGLOBIN 30.2 PG (27.0-31.0); MEAN CORPUSCULAR HGB CONC 31.7 g/dL (33.0-36.5); MEAN CORPUSCULAR VOLUME 95.1 FL (78-98); MEAN PLATELET VOLUME 8.3 FL (7.4-10.4); MONOCYTES # (AUTO) 0.7 X10'3 (0-0.9); MONOCYTES % (AUTO) 9.9 % (2-12); NEUTROPHILS # (AUTO) 4.7 X10'3 (1.8-7.7); NEUTROPHILS % (AUTO) 62.5 % (42-75); PLATELET COUNT 234 X10'3 (140-440); RED BLOOD COUNT 3.37 X10'6 (4.20-5.60); RED CELL DISTRIBUTION WIDTH 15.6 % (11.5-14.5); WHITE BLOOD COUNT 7.5 X10'3 (4.5-11.0)
[2019-04-26 12:55] LABS: ALANINE AMINOTRANSFERASE 13 U/L (12-78); ALBUMIN 3.1 G/DL (3.4-5.0); ALBUMIN/GLOBULIN RATIO 0.7 (1.1-1.5); ALKALINE PHOSPHATASE 63 IU/L (46-116); ANION GAP 3 (8-16); ASPARTATE AMINO TRANSFERASE 14 U/L (10-37); BILIRUBIN,TOTAL 0.3 MG/DL (0.1-1.0); BLOOD UREA NITROGEN 32 MG/DL (7-18); BUN/CREATININE RATIO 21.2 (6.6-38.0); CALCIUM 9.3 MG/DL (8.5-10.1); CHLORIDE 102 MMOL/L (99-107); CREATININE 1.51 MG/DL (0.40-0.90); GLUCOSE 185 MG/DL (70-104); POTASSIUM 3.9 MMOL/L (3.5-5.1); SODIUM 139 MMOL/L (135-145); TOTAL CARBON DIOXIDE 33.6 MMOL/L (24-32); TOTAL PROTEIN 7.4 G/DL (6.4-8.2); eGFR 33 ML/MIN
[2019-04-26 13:12] LABS: CLARITY,URINE SLIGHTLY CLOUDY (Clear); COLOR,URINE YELLOW (Yellow); GLUCOSE, URINE NEGATIVE (Neg); KETONES,URINE NEGATIVE (Neg); LEUKOCYTE ESTERASE ,URINE NEGATIVE (Neg); NITRITES, URINE NEGATIVE (Neg); OCCULT BLOOD,URINE NEGATIVE (Neg); PROTEIN,URINE NEGATIVE (Neg); UROBILINOGEN,URINE 0.2 E.U/dL (0.2-1.0)
[2019-04-26 13:15] LABS: UA COLLECTION TYPE STRAIGHT CATH
[2019-04-26 13:19] LABS: BACTERIA,URINE NONE SEEN /HPF (Neg); HYALINE CASTS 0-3 /LPF (NEGATIVE); MUCUS STRANDS FEW /LPF (Neg); RBC,URINE NONE SEEN /HPF (0-2); SQUAMOUS EPITHELIAL CELL,UR MODERATE /LPF (FEW); WBC,URINE 0-4 /HPF (0-4)
[2019-04-26 13:38] LABS: TROPONIN I < 0.04 NG/ML (0.0-0.05)
[2019-04-26 14:52] VITALS: BP 159/88
--- NOTE | 2019-04-26 15:52 | NUR ---
called pt son to come transport pt home, son godfrey on his way now.
== END 2019-04-26 16:07 | disposition home or self-care (01) ==
LOC: ER 11:48
DX: I50.9 Heart failure, unspecified (principal); I48.91 Unspecified atrial fibrillation; I11.0 Hypertensive heart disease with heart failure; J44.9 Chronic obstructive pulmonary disease, unspecified; E11.9 Type 2 diabetes mellitus without complications; G89.29 Other chronic pain; F41.9 Anxiety disorder, unspecified; F32.9 Major depressive disorder, single episode, unspecified; Z90.710 Acquired absence of both cervix and uterus; Z98.890 Other specified postprocedural states; Z88.5 Allergy status to narcotic agent; Z88.8 Allergy status to other drugs, medicaments and biological substances; Z79.82 Long term (current) use of aspirin; Z79.2 Long term (current) use of antibiotics; Z79.899 Other long term (current) drug therapy
CPT/HCPCS: 36415; 71045; 80053; 81001; 81003; 83880; 84145; 84484; 85025; 93005; 99284

== ENCOUNTER 2019-04-29 23:53 | Emergency (ER) | payer MEDICARE, OTHER, MEDICAID ==
[~2019-04-29] VITALS: Ht 170.2 cm; Wt 107.0 kg
[~2019-04-29 23:53] MED LIST changes: -BUSP15TA12 PO; +BUSP15TA7 PO
[2019-04-30 00:34] LABS: BASOPHILS # (AUTO) 0.1 X10'3 (0-0.2); EOSINOPHILS # (AUTO) 0.1 X10'3 (0-0.9); EOSINOPHILS % (AUTO) 1.3 % (0-6); HEMATOCRIT 30.3 % (35.0-45.0); LYMPHOCYTES # (AUTO) 2.4 X10'3 (1.1-4.8); LYMPHOCYTES % (AUTO) 31.5 % (21-51); MEAN CORPUSCULAR HEMOGLOBIN 31.1 PG (27.0-31.0); MEAN CORPUSCULAR HGB CONC 33.1 g/dL (33.0-36.5); MEAN CORPUSCULAR VOLUME 93.9 FL (78-98); MEAN PLATELET VOLUME 8.3 FL (7.4-10.4); MONOCYTES # (AUTO) 0.9 X10'3 (0-0.9); MONOCYTES % (AUTO) 11.7 % (2-12); NEUTROPHILS # (AUTO) 4.2 X10'3 (1.8-7.7); NEUTROPHILS % (AUTO) 54.5 % (42-75); PLATELET COUNT 218 X10'3 (140-440); RED BLOOD COUNT 3.23 X10'6 (4.20-5.60); RED CELL DISTRIBUTION WIDTH 14.8 % (11.5-14.5); WHITE BLOOD COUNT 7.6 X10'3 (4.5-11.0)
[2019-04-30 00:48] LABS: ALANINE AMINOTRANSFERASE 15 U/L (12-78); ALBUMIN 2.9 G/DL (3.4-5.0); ALBUMIN/GLOBULIN RATIO 0.7 (1.1-1.5); ALKALINE PHOSPHATASE 58 IU/L (46-116); ANION GAP 5 (8-16); ASPARTATE AMINO TRANSFERASE 11 U/L (10-37); BILIRUBIN,TOTAL 0.3 MG/DL (0.1-1.0); BLOOD UREA NITROGEN 28 MG/DL (7-18); BUN/CREATININE RATIO 18.7 (6.6-38.0); CALCIUM 8.8 MG/DL (8.5-10.1); CHLORIDE 101 MMOL/L (99-107); GLUCOSE 144 MG/DL (70-104); POTASSIUM 4.3 MMOL/L (3.5-5.1); SODIUM 138 MMOL/L (135-145); TOTAL CARBON DIOXIDE 31.8 MMOL/L (24-32); eGFR 33 ML/MIN
[2019-04-30 00:51] LABS: PARTIAL THROMBOPLASTIN TIME 28 SECONDS (22-32)
[2019-04-30] MEDS ORDERED: PANT20TA2 PO (00:59)
--- NOTE | 2019-04-30 06:44 | NUR ---
Called pt son Keenan. States that he is able to come to ED to give pt a ride home in roughly 30 minutes.
[2019-04-30 07:09] VITALS: BP 149/75
== END 2019-04-30 07:20 | disposition home or self-care (01) ==
LOC: ER 23:54
DX: S09.8XXA Other specified injuries of head, initial encounter (principal); M79.601 Pain in right arm; M79.602 Pain in left arm; M79.604 Pain in right leg; M79.605 Pain in left leg; R53.1 Weakness; I48.91 Unspecified atrial fibrillation; I11.0 Hypertensive heart disease with heart failure; I50.9 Heart failure, unspecified; J44.9 Chronic obstructive pulmonary disease, unspecified; E11.9 Type 2 diabetes mellitus without complications; G89.29 Other chronic pain; F41.9 Anxiety disorder, unspecified; F32.9 Major depressive disorder, single episode, unspecified; Z90.710 Acquired absence of both cervix and uterus; Z95.4 Presence of other heart-valve replacement; Z88.6 Allergy status to analgesic agent; Z88.5 Allergy status to narcotic agent; Z79.899 Other long term (current) drug therapy; Z79.82 Long term (current) use of aspirin
CPT/HCPCS: 36415; 70450; 71045; 80053; 83605; 84145; 84484; 85025; 85610; 85730; 87040; 93005; 99284

== ENCOUNTER 2019-05-03 09:16 | Day surgery (SDC) | payer MEDICARE, OTHER, MEDICAID ==
[~2019-05-03] VITALS: Ht 170.2 cm; Wt 107.6 kg
[2019-05-03] VITALS (11 sets, daily range): BP systolic 98–150; BP diastolic 62–79
[~2019-05-03 09:16] MED LIST changes: -ASPI81TA52 PO; -AZI25OT PO; -DIPH-186 PO; -FURO-149 PO; -GUAI600T45 PO; -LEVO75TA7 PO; -LOSA25TA41 PO; +PANT20TA2 PO; -PANT40TA4 PO; -QUET25TA PO
[2019-05-03] MEDS ORDERED: normal saline 1,000 ML IV SCH (09:55)
[2019-05-03 10:12] LABS: BASOPHILS % (AUTO) 0.6 % (0-1); EOSINOPHILS # (AUTO) 0.2 X10'3 (0-0.9); EOSINOPHILS % (AUTO) 2.1 % (0-6); HEMATOCRIT 32.8 % (35.0-45.0); HEMOGLOBIN 10.7 g/dl (12.0-16.0); LYMPHOCYTES # (AUTO) 1.6 X10'3 (1.1-4.8); MEAN CORPUSCULAR HEMOGLOBIN 30.7 PG (27.0-31.0); MEAN CORPUSCULAR HGB CONC 32.6 g/dL (33.0-36.5); MEAN CORPUSCULAR VOLUME 94.3 FL (78-98); MEAN PLATELET VOLUME 8.1 FL (7.4-10.4); MONOCYTES # (AUTO) 0.7 X10'3 (0-0.9); MONOCYTES % (AUTO) 8.5 % (2-12); NEUTROPHILS # (AUTO) 5.9 X10'3 (1.8-7.7); NEUTROPHILS % (AUTO) 69.8 % (42-75); PLATELET COUNT 230 X10'3 (140-440); RED BLOOD COUNT 3.47 X10'6 (4.20-5.60); RED CELL DISTRIBUTION WIDTH 15.2 % (11.5-14.5); WHITE BLOOD COUNT 8.4 X10'3 (4.5-11.0)
[2019-05-03 10:21] LABS: ALBUMIN 3.4 G/DL (3.4-5.0); ANION GAP 6 (8-16); BLOOD UREA NITROGEN 28 MG/DL (7-18); BUN/CREATININE RATIO 18.2 (6.6-38.0); CALCIUM 9.7 MG/DL (8.5-10.1); CHLORIDE 102 MMOL/L (99-107); CREATININE 1.54 MG/DL (0.40-0.90); GLUCOSE 127 MG/DL (70-104); MAGNESIUM 1.8 MG/DL (1.5-2.4); POTASSIUM 4.5 MMOL/L (3.5-5.1); SODIUM 141 MMOL/L (135-145); eGFR 32 ML/MIN
[2019-05-03] MEDS ORDERED: QUET25TA PO (10:23)
[2019-05-03] MEDS ORDERED: FURO40TA4 PO (10:23)
[2019-05-03] MEDS ORDERED: oxygen NASALCANN (10:23)
[2019-05-03] MEDS ORDERED: VALS80TA32 PO (10:23)
[2019-05-03] MEDS ORDERED: DILT120T14 PO (10:23)
[2019-05-03] MEDS ORDERED: GUAI600T45 PO (10:23)
[2019-05-03] MEDS ORDERED: RANO500T3 PO (10:23)
[2019-05-03] MEDS ORDERED: METF500T PO (10:23)
[2019-05-03] MEDS ORDERED: LEVO75TA7 PO (10:23)
[2019-05-03] MEDS ORDERED: vancomycin 1,000mg inj ONE (10:26)
[2019-05-03] MEDS ORDERED: iohexol 350 MG/ML 50ML vial IV ONE ×2 (11:00→12:28)
[2019-05-03] MEDS ORDERED: ceFAZolin 1GM/D5W- ADD-VANTAGE 100 ML IV ONE (11:21)
[2019-05-03] MEDS ORDERED: midazolam 2 mg/2 ml injection ONE ×2 (11:22→13:01)
[2019-05-03] MEDS ORDERED: fentaNYL/PF 50MCG/1 ML 2ML syringe ONE (11:22)
[2019-05-03] MEDS ORDERED: Thrombin (Bovine) 5,000 unit vial TP ONE (13:14)
--- NOTE | 2019-05-03 13:40 | NUR ---
REPORT GIVEN TO KEENAN MICHAEL. PT TRANSPORTED VIA W/C TO ROOM 0884G. KEENAN MICHAEL AT BEDSIDE. PT HAD ALL BELONGINGS.
[2019-05-03] MEDS ORDERED: nitroGLYCERIN 0.4mg SUBLingual tab SL PRN (14:25)
[2019-05-03] MEDS ORDERED: albuterol 2.5 MG/3 ML nebule NEB PRN (14:50)
[2019-05-03] MEDS ORDERED: ipratropium 0.5 MG/2.5ML nebule IH SCH (15:00)
--- NOTE | 2019-05-03 16:00 | NUR ---
Received pt report form Hanny MICHAEL. Vital signs obtained, tele monitor is on pt, call light given, and water given. Pt is resting in no apparent distress, will continue to monitor.
--- NOTE | 2019-05-03 16:31 | NUR ---
PER DR MARTIN, PT TO BE DISCHARGED MORNING OF 05/04/19. HE WILL NOT NEED TO SEE HER PRIOR TO DISCHARGE. PT SCHEDULE FOLLOW UP APPT MONDAY DR REYNOSO OFFICE CLOSED EARLY TODAY. FAMILY STATES WILL BE HERE TO PICK HER UP AT 1100 TOMORROW.
[2019-05-03] MEDS ORDERED: ipratropium/albuterol 3ml nebule NEB SCH (17:00)
--- NOTE | 2019-05-03 17:28 | NUR ---
wrong pt Addendum: 05/03/19 at 1728 by Britt Finney RN Amended: Links added.
--- NOTE | 2019-05-03 18:22 | NUR ---
Problems reprioritized. Patient report given, questions answered & plan of care reviewed with Brynn MICHAEL.
[2019-05-03] MEDS: ipratropium/albuterol 3ml nebule NEB SCH (18:52)
--- NOTE | 2019-05-03 19:02 | NUR ---
Patient in room PCU 3017. I have received report from Britt MICHAEL and had the opportunity to ask questions and assume patient care.
[2019-05-03] MEDS: furosemide 40mg tablet PO SCH (20:00)
[2019-05-03] MEDS: potassium chloride 8mEq ER tablet PO SCH (20:00)
--- NOTE | 2019-05-03 20:00 | NUR ---
Pt. refusing 20H00 Lasix and KCL, stating she never takes a diuretic this late in the day. Educated to medication rationale and hospital policy. Cont to refuse these meds at this time.
[2019-05-03] MEDS ORDERED: PREGABALIN PO SCH (21:00)
[2019-05-03] MEDS ORDERED: QUEtiapine 25mg tablet PO SCH (21:00)
[2019-05-03] MEDS: ranolazine 500mg SR tablet (Q12H) PO SCH (21:34)
[2019-05-03] MEDS: guaiFENesin ER 600mg tablet PO SCH (21:35)
[2019-05-03] MEDS: pregabalin 25mg capsule PO SCH (21:35)
[2019-05-03] MEDS: HYDROcodone/acetaminophen 5mg/325mg tablet PO PRN (21:35)
[2019-05-04 02:00] VITALS: BP 117/58
[2019-05-04] MEDS: HYDROcodone/acetaminophen 5mg/325mg tablet PO PRN (03:32)
[2019-05-04 06:00] VITALS: BP 98/44
--- NOTE | 2019-05-04 06:37 | NUR ---
Patient in room PCU 3017. I have received report from ALEC Swain and had the opportunity to ask questions and assume patient care.
[2019-05-04] MEDS: ipratropium/albuterol 3ml nebule NEB SCH ×2 (07:03→11:00)
--- NOTE | 2019-05-04 07:09 | NUR ---
Problems reprioritized. Patient report given, questions answered & plan of care reviewed with Jhonatan MICHAEL.
[2019-05-04] MEDS ORDERED: pantoprazole 40mg Tablet.DR PO SCH (07:30)
[2019-05-04] MEDS: furosemide 40mg tablet PO SCH (07:40)
[2019-05-04] MEDS: pregabalin 25mg capsule PO SCH (07:47)
[2019-05-04] MEDS: guaiFENesin ER 600mg tablet PO SCH (07:47)
[2019-05-04] MEDS: ranolazine 500mg SR tablet (Q12H) PO SCH (07:47)
[2019-05-04] MEDS: potassium chloride 8mEq ER tablet PO SCH (07:47)
[2019-05-04] MEDS ORDERED: DILTIAZEM HCL 120 MG PO SCH (08:00)
[2019-05-04] MEDS ORDERED: non-formulary drug (Tiotropium Bromide (Spiriva) 1 PUFF) IH SCH (08:00)
[2019-05-04] MEDS ORDERED: fluticasone nasal spray 16GM bottle NS SCH (08:00)
[2019-05-04] MEDS ORDERED: atorvastatin 10mg tablet PO SCH (08:00)
[2019-05-04] MEDS ORDERED: levoTHYROXINE 75mcg tablet PO SCH (08:00)
[2019-05-04] MEDS ORDERED: FLUTICASONE PROPIONATE BOTHNARES SCH (08:00)
[2019-05-04] MEDS ORDERED: losartan 50mg tablet PO SCH (08:00)
[2019-05-04] MEDS ORDERED: VALSARTAN PO SCH (08:00)
[2019-05-04] MEDS ORDERED: diltiazem CD 120mg capsule (once-daily) PO SCH (08:00)
--- NOTE | 2019-05-04 12:45 | NUR ---
IV and tele DC'd. Educated on pacer and follow-up. Stable per MD for DC.
[2019-05-06] MEDS ORDERED: metFORMIN 500mg tablet PO SCH (08:00)
== END 2019-05-04 11:35 | disposition home or self-care (01) ==
LOC: SSTAY O 09:16 → PCU 3S 16:08 → SSTAY O 05-04 11:35
PROVIDERS: ATTEND Internal Medicine Cardiovascular Disease
DX: I42.0 Dilated cardiomyopathy (principal); I50.22 Chronic systolic (congestive) heart failure; I44.7 Left bundle-branch block, unspecified; I49.5 Sick sinus syndrome; I48.2 Chronic atrial fibrillation; Z79.899 Other long term (current) drug therapy; I25.10 Atherosclerotic heart disease of native coronary artery without angina pectoris; E78.5 Hyperlipidemia, unspecified; I10 Essential (primary) hypertension; E11.51 Type 2 diabetes mellitus with diabetic peripheral angiopathy without gangrene; E03.9 Hypothyroidism, unspecified; Z98.890 Other specified postprocedural states; Z87.891 Personal history of nicotine dependence; Z87.19 Personal history of other diseases of the digestive system; J44.9 Chronic obstructive pulmonary disease, unspecified; I48.91 Unspecified atrial fibrillation; I25.118 Atherosclerotic heart disease of native coronary artery with other forms of angina pectoris
CPT/HCPCS: 33225; 33249; 36415; 71045; 80048; 82948; 83735; 85025; 85610; 93005; 93460; 94640; 94760; 99152; 99153; C1769; C1777; C1882; C1887; C1894; C1900; J0690; J2250; J3010; J3370; J7030; Q9967; 93461; A4565; A4620; G0378

== ENCOUNTER 2019-07-16 18:43 | Emergency (ER) | payer MEDICARE, OTHER, MEDICAID ==
[~2019-07-16] VITALS: Ht 167.6 cm; Wt 106.8 kg
[~2019-07-16 18:43] MED LIST changes: -BUDE90AE IH; -BUSP15TA7 PO; -CARV6.2553 PO; +DILT120T14 PO; +FURO40TA4 PO; -GLIP5TAB13 PO; +GUAI600T45 PO; +LEVO75TA7 PO; +METF500T PO; -PAT0.1OS OP; +QUET25TA PO; +RANO500T3 PO; -UMEC62.5; +VALS80TA32 PO; +oxygen NASALCANN
--- NOTE | 2019-07-16 19:06 | NUR ---
[employer] INTER[employer] REPORT SENT OFF, WAITING FOR CALL BACK FROM LOCAL REP.
[2019-07-16 19:16] LABS: BASOPHILS # (AUTO) 0.1 X10'3 (0-0.2); BASOPHILS % (AUTO) 1.1 % (0-1); EOSINOPHILS # (AUTO) 0.1 X10'3 (0-0.9); EOSINOPHILS % (AUTO) 1.8 % (0-6); HEMATOCRIT 32.2 % (35.0-45.0); HEMOGLOBIN 10.5 g/dl (12.0-16.0); LYMPHOCYTES # (AUTO) 2.6 X10'3 (1.1-4.8); LYMPHOCYTES % (AUTO) 37.7 % (21-51); MEAN CORPUSCULAR HEMOGLOBIN 30.2 PG (27.0-31.0); MEAN CORPUSCULAR HGB CONC 32.7 g/dL (33.0-36.5); MEAN CORPUSCULAR VOLUME 92.4 FL (78-98); MEAN PLATELET VOLUME 8.5 FL (7.4-10.4); MONOCYTES # (AUTO) 0.7 X10'3 (0-0.9); MONOCYTES % (AUTO) 9.6 % (2-12); NEUTROPHILS # (AUTO) 3.5 X10'3 (1.8-7.7); NEUTROPHILS % (AUTO) 49.8 % (42-75); PLATELET COUNT 208 X10'3 (140-440); RED BLOOD COUNT 3.48 X10'6 (4.20-5.60); RED CELL DISTRIBUTION WIDTH 14.7 % (11.5-14.5)
[2019-07-16 19:23] LABS: ALANINE AMINOTRANSFERASE 10 U/L (12-78); ALBUMIN 2.3 G/DL (3.4-5.0); ALBUMIN/GLOBULIN RATIO 0.7 (1.1-1.5); ALKALINE PHOSPHATASE 44 IU/L (46-116); ANION GAP 7 (8-16); ASPARTATE AMINO TRANSFERASE 13 U/L (10-37); BILIRUBIN,TOTAL 0.2 MG/DL (0.1-1.0); BLOOD UREA NITROGEN 29 MG/DL (7-18); BUN/CREATININE RATIO 26.9 (6.6-38.0); CALCIUM 7.2 MG/DL (8.5-10.1); CHLORIDE 110 MMOL/L (99-107); CREATININE 1.08 MG/DL (0.40-0.90); GLUCOSE 124 MG/DL (70-104); POTASSIUM 3.2 MMOL/L (3.5-5.1); SODIUM 143 MMOL/L (135-145); TOTAL CARBON DIOXIDE 26.1 MMOL/L (24-32); TOTAL PROTEIN 5.6 G/DL (6.4-8.2); eGFR 48 ML/MIN
[2019-07-16 20:00] LABS: PARTIAL THROMBOPLASTIN TIME 26 SECONDS (22-32)
--- NOTE | 2019-07-16 20:20 | NUR ---
SON IS ON HIS WAY TO BRING PATIENT HOME.
[2019-07-16 20:41] VITALS: BP 145/80
== END 2019-07-16 20:42 | disposition home or self-care (01) ==
LOC: ER 18:44
DX: R07.89 Other chest pain (principal); R53.1 Weakness; R42 Dizziness and giddiness; I48.91 Unspecified atrial fibrillation; I50.9 Heart failure, unspecified; I11.0 Hypertensive heart disease with heart failure; E11.9 Type 2 diabetes mellitus without complications; J44.9 Chronic obstructive pulmonary disease, unspecified; G89.29 Other chronic pain; F41.9 Anxiety disorder, unspecified; F32.9 Major depressive disorder, single episode, unspecified; Z88.6 Allergy status to analgesic agent; Z79.899 Other long term (current) drug therapy; Z79.84 Long term (current) use of oral hypoglycemic drugs; Z87.19 Personal history of other diseases of the digestive system; Z90.710 Acquired absence of both cervix and uterus; Z95.0 Presence of cardiac pacemaker
CPT/HCPCS: 36415; 71045; 80053; 84484; 85025; 85610; 85730; 93005; 99284

== ENCOUNTER 2019-10-04 15:26 | Emergency (ER) | payer MEDICARE, OTHER, MEDICAID ==
[~2019-10-04] VITALS: Ht 165.1 cm; Wt 110.0 kg
[2019-10-04 17:03] LABS: BASOPHILS % (AUTO) 0.5 % (0-1); EOSINOPHILS # (AUTO) 0.1 X10'3 (0-0.9); HEMATOCRIT 31.1 % (35.0-45.0); HEMOGLOBIN 10.2 g/dl (12.0-16.0); LYMPHOCYTES % (AUTO) 24.6 % (21-51); MEAN CORPUSCULAR HEMOGLOBIN 31.3 PG (27.0-31.0); MEAN CORPUSCULAR HGB CONC 32.7 g/dL (33.0-36.5); MEAN CORPUSCULAR VOLUME 95.8 FL (78-98); MEAN PLATELET VOLUME 8.5 FL (7.4-10.4); MONOCYTES # (AUTO) 0.7 X10'3 (0-0.9); MONOCYTES % (AUTO) 8.6 % (2-12); NEUTROPHILS # (AUTO) 5.3 X10'3 (1.8-7.7); NEUTROPHILS % (AUTO) 65.3 % (42-75); PLATELET COUNT 188 X10'3 (140-440); RED BLOOD COUNT 3.25 X10'6 (4.20-5.60); RED CELL DISTRIBUTION WIDTH 15.1 % (11.5-14.5); WHITE BLOOD COUNT 8.1 X10'3 (4.5-11.0)
[2019-10-04 17:16] LABS: ALANINE AMINOTRANSFERASE 15 U/L (12-78); ALBUMIN 3.3 G/DL (3.4-5.0); ALBUMIN/GLOBULIN RATIO 0.8 (1.1-1.5); ALKALINE PHOSPHATASE 66 IU/L (46-116); ANION GAP 1 (8-16); ASPARTATE AMINO TRANSFERASE 14 U/L (10-37); BILIRUBIN,TOTAL 0.3 MG/DL (0.1-1.0); BLOOD UREA NITROGEN 34 MG/DL (7-18); BUN/CREATININE RATIO 21.5 (6.6-38.0); CALCIUM 9.3 MG/DL (8.5-10.1); CHLORIDE 103 MMOL/L (99-107); CREATININE 1.58 MG/DL (0.40-0.90); GLUCOSE 203 MG/DL (70-104); POTASSIUM 5.2 MMOL/L (3.5-5.1); SODIUM 139 MMOL/L (135-145); TOTAL CARBON DIOXIDE 34.7 MMOL/L (24-32); TOTAL PROTEIN 7.3 G/DL (6.4-8.2); eGFR 31 ML/MIN
[2019-10-04] MEDS ORDERED: ipratropium/albuterol 3ml nebule NEB ONE (18:10)
[2019-10-04] MEDS ORDERED: predniSONE 20 mg tablet PO ONE (18:15)
[2019-10-04] MEDS ORDERED: PREG50CA64 (19:44)
[2019-10-04] MEDS ORDERED: GLIP5TAB13 (19:44)
[2019-10-04] MEDS ORDERED: BUSP15TA3 (19:44)
[2019-10-04] MEDS ORDERED: PANT40TA4 (19:44)
[2019-10-04] MEDS ORDERED: QUET25TA34 (19:44)
[2019-10-04] MEDS ORDERED: LORA10TA7 (19:44)
[2019-10-04] MEDS ORDERED: UMEC62.5 (19:44)
[2019-10-04] MEDS ORDERED: ATOR10TA70 (19:44)
[2019-10-04] MEDS ORDERED: HYDR-3964 (19:44)
[2019-10-04] MEDS ORDERED: VALS160T30 (19:44)
[2019-10-04] MEDS ORDERED: furosemide 10 MG/1 ML 10ml inj IV ONE (19:50)
--- NOTE | 2019-10-04 20:18 | NUR ---
son called and informed his mother is being discharged. son stated he is on his way back.
--- NOTE | 2019-10-04 20:20 | NUR ---
Pt's son phoned to pick her up for discharge.
[2019-10-04 20:54] VITALS: BP 164/92
== END 2019-10-04 21:10 | disposition home or self-care (01) ==
LOC: ER 15:26
DX: J44.9 Chronic obstructive pulmonary disease, unspecified (principal); I11.0 Hypertensive heart disease with heart failure; I50.9 Heart failure, unspecified; I48.91 Unspecified atrial fibrillation; E11.9 Type 2 diabetes mellitus without complications; G89.29 Other chronic pain; F41.9 Anxiety disorder, unspecified; F32.9 Major depressive disorder, single episode, unspecified; Z90.710 Acquired absence of both cervix and uterus; Z88.6 Allergy status to analgesic agent; Z88.5 Allergy status to narcotic agent; Z79.84 Long term (current) use of oral hypoglycemic drugs; Z79.899 Other long term (current) drug therapy
CPT/HCPCS: 36415; 71046; 80053; 83605; 83880; 84145; 85025; 87040; 93005; 94640; 96374; 99284; J1940; J7512; 94760